=== PATIENT | female | born 1975 | race Hispanic/Latino ===

== ENCOUNTER 2017-07-23 01:16 | Emergency (ER) | payer SELFPAY ==
[~2017-07-23] VITALS: Ht 157.5 cm; Wt 58.5 kg
[2017-07-23] MEDS ORDERED: KETOROLAC TROMETHAMINE 60 MG/2 ML VIAL IM ONE (01:45)
--- NOTE | 2017-07-23 02:33 | Diagnostic Imaging Report ---
EXAM: CHEST 2 VIEWS, PA and lateral DATE: 07/23/2017 1:32 AM Time stamp on exam: 0142 hours INDICATION: Chest pain, shortness of breath, cough COMPARISON: None FINDINGS: LINES/TUBES: None LUNGS: No consolidations or edema. PLEURA: No effusions or pneumothorax. HEART AND MEDIASTINUM: Normal size and contour. BONES AND SOFT TISSUES: No acute findings. IMPRESSION: No acute thoracic abnormality. Signed by: Dr. Sonal Macdonald M.D. on 07/23/2017 2:30 AM
== END 2017-07-23 03:07 | disposition home or self-care (01) ==
LOC: ER 01:16
DX: R07.89 Other chest pain (principal)
CPT/HCPCS: 71020; 93005; 99283; J1885

== ENCOUNTER 2019-02-24 20:32 | Emergency (ER) | payer SELFPAY ==
[~2019-02-24] VITALS: Ht 157.5 cm; Wt 58.5 kg
--- OUTSIDE RECORDS SUMMARY | 2019-02-24 20:38 | XMS REPORT ---
[facility] Address Unknown Phone Unavailable Care Team Providers Care Accounts Manager Name Role Phone Timur MAYA Unavailable Unavailable Payers Payer Name Policy Type Policy Number Effective Date Expiration Date Problems This patient has no known problems. Allergies, Adverse Reactions, Alerts Allergy Name Allergy Type Status Severity Reaction(s) Onset Date Inactive Date Treating Clinician Comments No Known Allergies DA Active U 2018-12-22 00:00:00 Medications This patient has no known medications. Results Test Description Test Time Test Comments Text Results Atomic Results Result Comments BASIC METABOLIC PANEL 2019-01-08 06:58:00 SODIUM (test code=NA) 138 mmol/L 136-145 POTASSIUM (test code=K) 4.2 mmol/L 3.5-5.1 CHLORIDE (test code=CL) 106.0 mmol/L 98-107 CARBON DIOXIDE (test code=CO2) 28.0 mmol/L 21-32 ANION GAP (test code=GAP) 8.2 10-20 GLUCOSE (test code=GLU) 97 mg/dL 74-106 BLOOD UREA NITROGEN (test code=BUN) 9 mg/dL 7-18 GLOMERULAR FILTRATION RATE (test code=GFR) > 60 mL/min >=60 Estimated GFR by using Modified MDRD formula.Chronic kidney disease is defined as either kidney damageor GFR <60 mL/min/1.73 m2 for >3 months. CREATININE (test code=CREAT) 0.40 mg/dL 0.55-1.02 Note change in reference range due to change in reagent. BUN/CREATININE RATIO (test code=BUN/CREA) 22.5 10-20 CALCIUM (test code=CA) 9.1 mg/dL 8.5-10.1 BASIC METABOLIC [id number] 06:52:00* Test Item Value Reference Range Comments SODIUM (test code=NA) 138 mmol/L 136-145 POTASSIUM (test code=K) 4.2 mmol/L 3.5-5.1 CHLORIDE (test code=CL) 106.0 mmol/L 98-107 CARBON DIOXIDE (test code=CO2) mmol/L 21-32 ANION GAP (test code=GAP) 10-20 GLUCOSE (test code=GLU) mg/dL 74-106 BLOOD UREA NITROGEN (test code=BUN) mg/dL 7-18 GLOMERULAR FILTRATION RATE (test code=GFR) mL/min >=60 CREATININE (test code=CREAT) mg/dL 0.55-1.02 BUN/CREATININE RATIO (test code=BUN/CREA) 10-20 CALCIUM (test code=CA) mg/dL 8.5-10.1 CBC W/AUTO [id number] 06:32:00* Test Item Value Reference Range Comments WHITE BLOOD CELL (test code=WBC) 7.0 K/mm3 4.5-12.5 RED BLOOD CELL (test code=RBC) 3.62 mill/mm3 3.7-5.2 HEMOGLOBIN (test code=HGB) 11.5 gram/dL 11.5-15.5 HEMATOCRIT (test code=HCT) 36.6 % 36.0-46.0 MEAN CELL VOLUME (test code=MCV) 101.1 fL 80-98 MEAN CELL HGB (test code=MCH) 31.8 picogram 27.0-33.0 MEAN CELL HGB CONCETRATION (test code=MCHC) 31.4 gram/dL 33.0-36.0 RED CELL DISTRIBUTION WIDTH (test code=RDW) 14.3 % 11.6-16.2 RED CELL DISTRIBUTION WIDTH SD (test code=RDW-SD) 52.8 fL 37.0-51.0 PLATELET COUNT (test code=PLT) 509 K/mm3 150-450 MEAN PLATELET VOLUME (test code=MPV) 8.3 fL 6.7-11.0 NEUTROPHIL % (test code=NT%) 62.6 % 39.0-69.0 IMMATURE GRANULOCYTE % (test code=IG%) 0.9 % 0.0-5.0 LYMPHOCYTE % (test code=LY%) 19.9 % 25.0-55.0 MONOCYTE % (test code=MO%) 12.0 % 0.0-10.0 EOSINOPHIL % (test code=EO%) 3.6 % 0.0-5.0 BASOPHIL % (test code=BA%) 1.0 % 0.0-1.0 NUCLEATED RBC % (test code=NRBC%) 0.0 % 0-0 NEUTROPHIL # (test code=NT#) 4.40 K/mm3 1.8-7.7 IMMATURE GRANULOCYTE # (test code=IG#) 0.06 x10 3/uL 0-0.03 LYMPHOCYTE # (test code=LY#) 1.40 K/mm3 1.0-5.0 MONOCYTE # (test code=MO#) 0.84 K/mm3 0-0.8 EOSINOPHIL # (test code=EO#) 0.25 K/mm3 0.0-0.5 BASOPHIL # (test code=BA#) 0.07 K/mm3 0.0-0.2 NUCLEATED RBC # (test code=NRBC#) 0.00 K/mm3 0.0-0.1 CBC W/AUTO [id number] 06:28:00* Test Item Value Reference Range Comments WHITE BLOOD CELL (test code=WBC) K/mm3 4.5-12.5 RED BLOOD CELL (test code=RBC) mill/mm3 3.7-5.2 HEMOGLOBIN (test code=HGB) 11.5 gram/dL 11.5-15.5 HEMATOCRIT (test code=HCT) 36.6 % 36.0-46.0 MEAN CELL VOLUME (test code=MCV) fL 80-98 MEAN CELL HGB (test code=MCH) picogram 27.0-33.0 MEAN CELL HGB CONCETRATION (test code=MCHC) gram/dL 33.0-36.0 RED CELL DISTRIBUTION WIDTH (test code=RDW) % 11.6-16.2 RED CELL DISTRIBUTION WIDTH SD (test code=RDW-SD) fL 37.0-51.0 PLATELET COUNT (test code=PLT) K/mm3 150-450 MEAN PLATELET VOLUME (test code=MPV) fL 6.7-11.0 NEUTROPHIL % (test code=NT%) % 39.0-69.0 IMMATURE GRANULOCYTE % (test code=IG%) % 0.0-5.0 LYMPHOCYTE % (test code=LY%) % 25.0-55.0 MONOCYTE % (test code=MO%) % 0.0-10.0 EOSINOPHIL % (test code=EO%) % 0.0-5.0 BASOPHIL % (test code=BA%) % 0.0-1.0 NEUTROPHIL # (test code=NT#) K/mm3 1.8-7.7 LYMPHOCYTE # (test code=LY#) K/mm3 1.0-5.0 MONOCYTE # (test code=MO#) K/mm3 0-0.8 EOSINOPHIL # (test code=EO#) K/mm3 0.0-0.5 BASOPHIL # (test code=BA#) K/mm3 0.0-0.2 BASIC METABOLIC [id number] 07:43:00* Test Item Value Reference Range Comments SODIUM (test code=NA) 139 mmol/L 136-145 POTASSIUM (test code=K) 4.1 mmol/L 3.5-5.1 CHLORIDE (test code=CL) 106.0 mmol/L 98-107 CARBON DIOXIDE (test code=CO2) 25.0 mmol/L 21-32 ANION GAP (test code=GAP) 12.1 10-20 GLUCOSE (test code=GLU) 107 mg/dL 74-106 BLOOD UREA NITROGEN (test code=BUN) 8 mg/dL 7-18 GLOMERULAR FILTRATION RATE (test code=GFR) > 60 mL/min >=60 Estimated GFR by using Modified MDRD formula.Chronic kidney disease is defined as either kidney damageor GFR <60 mL/min/1.73 m2 for >3 months. CREATININE (test code=CREAT) 0.30 mg/dL 0.55-1.02 Note change in reference range due to change in reagent. BUN/CREATININE RATIO (test code=BUN/CREA) 26.7 10-20 CALCIUM (test code=CA) 8.4 mg/dL 8.5-10.1 BASIC METABOLIC [id number] 07:28:00* Test Item Value Reference Range Comments SODIUM (test code=NA) 139 mmol/L 136-145 POTASSIUM (test code=K) 4.1 mmol/L 3.5-5.1 CHLORIDE (test code=CL) 106.0 mmol/L 98-107 CARBON DIOXIDE (test code=CO2) mmol/L 21-32 ANION GAP (test code=GAP) 10-20 GLUCOSE (test code=GLU) mg/dL 74-106 BLOOD UREA NITROGEN (test code=BUN) mg/dL 7-18 GLOMERULAR FILTRATION RATE (test code=GFR) mL/min >=60 CREATININE (test code=CREAT) mg/dL 0.55-1.02 BUN/CREATININE RATIO (test code=BUN/CREA) 10-20 CALCIUM (test code=CA) mg/dL 8.5-10.1 CBC W/AUTO [id number] 07:09:00* Test Item Value Reference Range Comments WHITE BLOOD CELL (test code=WBC) 7.9 K/mm3 4.5-12.5 RED BLOOD CELL (test code=RBC) 3.33 mill/mm3 3.7-5.2 HEMOGLOBIN (test code=HGB) 10.5 gram/dL 11.5-15.5 HEMATOCRIT (test code=HCT) 32.1 % 36.0-46.0 MEAN CELL VOLUME (test code=MCV) 96.4 fL 80-98 MEAN CELL HGB (test code=MCH) 31.5 picogram 27.0-33.0 MEAN CELL HGB CONCETRATION (test code=MCHC) 32.7 gram/dL 33.0-36.0 RED CELL DISTRIBUTION WIDTH (test code=RDW) 14.3 % 11.6-16.2 RED CELL DISTRIBUTION WIDTH SD (test code=RDW-SD) 50.3 fL 37.0-51.0 PLATELET COUNT (test code=PLT) 523 K/mm3 150-450 MEAN PLATELET VOLUME (test code=MPV) 8.5 fL 6.7-11.0 NEUTROPHIL % (test code=NT%) 62.4 % 39.0-69.0 IMMATURE GRANULOCYTE % (test code=IG%) 1.5 % 0.0-5.0 LYMPHOCYTE % (test code=LY%) 17.9 % 25.0-55.0 MONOCYTE % (test code=MO%) 13.9 % 0.0-10.0 EOSINOPHIL % (test code=EO%) 3.4 % 0.0-5.0 BASOPHIL % (test code=BA%) 0.9 % 0.0-1.0 NUCLEATED RBC % (test code=NRBC%) 0.0 % 0-0 NEUTROPHIL # (test code=NT#) 4.94 K/mm3 1.8-7.7 IMMATURE GRANULOCYTE # (test code=IG#) 0.12 x10 3/uL 0-0.03 LYMPHOCYTE # (test code=LY#) 1.42 K/mm3 1.0-5.0 MONOCYTE # (test code=MO#) 1.10 K/mm3 0-0.8 EOSINOPHIL # (test code=EO#) 0.27 K/mm3 0.0-0.5 BASOPHIL # (test code=BA#) 0.07 K/mm3 0.0-0.2 NUCLEATED RBC # (test code=NRBC#) 0.00 K/mm3 0.0-0.1 - CT CHEST W/O [id number] 11:38:00 Name: BLADIMIR FAROOQ [facility] : 1975 Age/S: 43 / F [address] [facility] Unit #: [id number] Loc: [place] [address] Phys: Kaleigh Link NP Acct: [id number] Dis Date: Status: ADM IN PHONE #: [phone] Exam Date: 01/06/2019 1105 FAX #: [phone] Reason: s/p thoracotomy EXAMS: CPT CODE: [id number] CT CHEST W/O CONTRAST 80566 HISTORY: Post thoracotomy. COMPARISON: CT chest from December 22, 2018 and multiple chest x-ray from December 30 of January 06, 2019. CT chest without contrast: Automated exposure control. Right lung is clear. Small loculated left lateral pleural effusion is substantially decreased from previous chest CT. Small pockets of air is still noted within this effusion. 2 cm loculation noted along the inferior anterior margin of the major fissure and along the superior posterior margin of the major fissure as well. Platelike and subsegmental atelectasis. Mild scarring. No infiltrates. Moderate loss of lung volume and shift the mediastinum towards the left. No pneumothorax. No bronchiectasis, honeycombing or fibrosis. Normal caliber u nopacified aorta and pulmonary arteries. Thyroid glands are unremarkable. Superior mediastinum is unremarkable. Shotty axillary adenopathy on the le ft as well as in the pretracheal and precarinal spaces. Esophageal wall is not thickened. Cardiac silhouette is within normal limits without pericar dial effusion. Visualized upper abdomen is unremarkable. The subcu taneous tissues and the musculature are normal in appearance. No lytic or blastic lesions are noted within the bony skeleton. IMPRES VALENTIN: Small loculated left lateral basal effusion with small l ocules of air. Loculated 2 cm effusion in the anterior inferior margin o f the major fissure and the superior posterior margin of the major fissu re as well. Left basal subsegmental atelectasis with loss of lung volume and shift the mediastinum towards the left. No infiltrates. No congesti on. Mild scarring. Right lung is clear. No pathologic adenopathy. at 1138 Reported and signed by: Jh Oakes M.D. CC: Javi Tejeda MD; Kaleigh Link NP Technologist:Sara Orozco,RT(R),CT; Desiree Chaidez CTDI: DLP: Trnscb Date/Time: 01/06/2019 (1138) [email or web address] Orig Print D/T: S: 01/06/2019 (7721) PAGE 1 Signed Report - XR CHEST 2 [id number] 11:20:00 FAX: Javi Tejeda MD [phone] Thomas: St: ADM FAX: Jimmie Watters MD [phone] Name: BLADIMIR FAROOQ [facility] : 1975 Age/S: 43/F [address] Unit #: [id number] Loc: [address] [place] [address] Phys: Jimmie Monreal MD Acct: [id number] Dis Date: Status: ADM IN PHONE #: [phone] Exam Date: 01/06/2019 1055 FAX #: [phone] Reason: fever EXAMS: CPT CODE: [id number] XR CHEST 2 V 36113 HISTORY: Fever. COMPARISON: January 05, 2019. AP and lateral view of the chest: Small left effusion and subsegmental atelectasis with scarring. No infiltrates or congestion. Loss of lung volume on the left. Right lung is clear. IMPRESSION: Small left effusion with subsegmental atelectasis remains unchanged. at 1120 Reported and signed by: Jh Oakes M.D. CC: Javi Tejeda MD; Jimmie Monreal MD Technologist: RT RADHA(Jil) Trnscrd Date/Time/By: 01/06/2019 (1120) : By: [email or web address] Orig Print D/T: S: 01/06/2019 (2463) PAGE 1 Signed Report BASIC METABOLIC [id number] 09:11:00* Test Item Value Reference Range Comments SODIUM (test code=NA) 137 mmol/L 136-145 POTASSIUM (test code=K) 3.8 mmol/L 3.5-5.1 CHLORIDE (test code=CL) 104.0 mmol/L 98-107 CARBON DIOXIDE (test code=CO2) 27.0 mmol/L 21-32 ANION GAP (test code=GAP) 9.8 10-20 GLUCOSE (test code=GLU) 110 mg/dL 74-106 BLOOD UREA NITROGEN (test code=BUN) 7 mg/dL 7-18 GLOMERULAR FILTRATION RATE (test code=GFR) > 60 mL/min >=60 Estimated GFR by using Modified MDRD formula.Chronic kidney disease is defined as either kidney damageor GFR <60 mL/min/1.73 m2 for >3 months. CREATININE (test code=CREAT) 0.40 mg/dL 0.55-1.02 Note change in reference range due to change in reagent. BUN/CREATININE RATIO (test code=BUN/CREA) 17.5 10-20 CALCIUM (test code=CA) 8.4 mg/dL 8.5-10.1 BASIC METABOLIC [id number] 09:02:00* Test Item Value Reference Range Comments SODIUM (test code=NA) 137 mmol/L 136-145 POTASSIUM (test code=K) 3.8 mmol/L 3.5-5.1 CHLORIDE (test code=CL) 104.0 mmol/L 98-107 CARBON DIOXIDE (test code=CO2) mmol/L 21-32 ANION GAP (test code=GAP) 10-20 GLUCOSE (test code=GLU) mg/dL 74-106 BLOOD UREA NITROGEN (test code=BUN) mg/dL 7-18 GLOMERULAR FILTRATION RATE (test code=GFR) mL/min >=60 CREATININE (test code=CREAT) mg/dL 0.55-1.02 BUN/CREATININE RATIO (test code=BUN/CREA) 10-20 CALCIUM (test code=CA) mg/dL 8.5-10.1 CBC W/AUTO [id number] 08:42:00* Test Item Value Reference Range Comments WHITE BLOOD CELL (test code=WBC) 9.9 K/mm3 4.5-12.5 RED BLOOD CELL (test code=RBC) 3.39 mill/mm3 3.7-5.2 HEMOGLOBIN (test code=HGB) 10.7 gram/dL 11.5-15.5 HEMATOCRIT (test code=HCT) 33.8 % 36.0-46.0 MEAN CELL VOLUME (test code=MCV) 99.7 fL 80-98 MEAN CELL HGB (test code=MCH) 31.6 picogram 27.0-33.0 MEAN CELL HGB CONCETRATION (test code=MCHC) 31.7 gram/dL 33.0-36.0 RED CELL DISTRIBUTION WIDTH (test code=RDW) 14.4 % 11.6-16.2 RED CELL DISTRIBUTION WIDTH SD (test code=RDW-SD) 52.1 fL 37.0-51.0 PLATELET COUNT (test code=PLT) 532 K/mm3 150-450 MEAN PLATELET VOLUME (test code=MPV) 8.3 fL 6.7-11.0 NEUTROPHIL % (test code=NT%) 77.5 % 39.0-69.0 IMMATURE GRANULOCYTE % (test code=IG%) 1.9 % 0.0-5.0 LYMPHOCYTE % (test code=LY%) 8.3 % 25.0-55.0 MONOCYTE % (test code=MO%) 8.5 % 0.0-10.0 EOSINOPHIL % (test code=EO%) 3.2 % 0.0-5.0 BASOPHIL % (test code=BA%) 0.6 % 0.0-1.0 NUCLEATED RBC % (test code=NRBC%) 0.0 % 0-0 NEUTROPHIL # (test code=NT#) 7.69 K/mm3 1.8-7.7 IMMATURE GRANULOCYTE # (test code=IG#) 0.19 x10 3/uL 0-0.03 LYMPHOCYTE # (test code=LY#) 0.82 K/mm3 1.0-5.0 MONOCYTE # (test code=MO#) 0.84 K/mm3 0-0.8 EOSINOPHIL # (test code=EO#) 0.32 K/mm3 0.0-0.5 BASOPHIL # (test code=BA#) 0.06 K/mm3 0.0-0.2 NUCLEATED RBC # (test code=NRBC#) 0.00 K/mm3 0.0-0.1 MANUAL DIFF REQUIRED (test code=MDIFF) NO VANCOMYCIN [id number] 11:16:00* Test Item Value Reference Range Comments VANCOMYCIN TROUGH (test code=VANCT) 12.9 ug/mL 10-20 - XR CHEST 1 [id number] 08:57:00 FAX: Javi Tejeda MD [phone] Thomas: B St: ADM FAX: Kaleigh Dumont Name: BLADIMIR FAROOQ [facility] : 1975 Age/S: 43/F [address] [facility] Unit #: [id number] Loc: [address] [place] [address] Phys: Kaleigh Link NP Acct: [id number] Dis Date: Status: ADM IN PHONE #: [phone] Exam Date: 01/05/2019754 FAX #: [phone] Reason: s/p Thoracotomy EXAMS: CPT CODE: [id number] XR CHEST 1 V 25729 HISTORY: Post thoracotomy. COMPARISON: January 04, 2019. Increasing small left effusion with subsegmental atelectasis. Mild scarring and loss of lung volume. No infiltrates or congestion. No pneumothorax. Right lung is clear. IMPRESSION: Increasing small left effusion with subsegmental atelectasis and loss of lung volume without infiltrates or congestion. at 0857 Reported and signed by: Jh Oakes M.D. CC: Javi Tejeda MD; Kaleigh Link NP Technologist: Erica Carmen RT(R); MAURILIO GARZON RT(R) [facility] Date/Time/By: 01/05/2019 (0857) : By: Luz [email or web address] Orig Print D/T: S: 01/05/2019 (0900) CL JOHNSON 1 Signed Report - XR ABDOMEN AP 1 [id number] 15:58:00 FAX: Javi Tejeda MD [phone] Thomas: St: ADM FAX: Jeanette Rossi [phone] Name: BLADIMIR FAROOQ [facility] : 1975 Age/S: 43/F [address] Unit #: [id number] Loc: [place] [address] Phys: Jeanette Rossi MD Acct: [id number] Dis Date: Status: ADM IN PHONE #: [phone] Exam Date: 01/04/2019 1556 FAX #: [phone] Reason: constipation, pain EXAMS: CPT CODE: [id number] XR ABDOMEN AP 1 V 59780 REASON FOR EXAM: constipation, pain EXAM ORDER DATE: 01/04/2019 3:39 PM Attending MCarlos A: Jeanette Rossi MD PROCEDURE: - XR ABDOMEN AP 1 V COMPARISON: FINDINGS: One view of the abdomen obtained at 3:56 PM. The small bowel is unremarkable. No evidence of organomegaly or evidence of ascites. No evidence of free air. IMPRESSION: Moderate amount of stool in the colon suggestive of constipation. at 9771 Reported and signed by: Srinivas Cordero M.D. CC: Javi Tejeda MD; Jeanette Rossi MD Technologist: LIVIA LUCERO; Erica Carmen RT(R) Trnscrd Date/Time/By: 01/04/2019 (1096) : By: [email or web address] Orig Print D/T: S: 01/04/2019 (5113) PAGE 1 Signed Report - XR CHEST 1 [id number] 09:35:00 FAX: Javi Tejeda MD [phone] Thomas: St: ADM FAX: Kaleigh Dumont Name: BLADIMIR FAROOQ [facility] : 1975 Age/S: 43/F [address] Unit #: [id number] Loc: [address] [place] [address] Phys: Kaleigh Link NP Acct: [id number] Dis Date: Status: ADM IN PHONE #: [phone] Exam Date: 01/04/2019 09 FAX #: [phone] Reason: s/p Thoracotomy EXAMS: CPT CODE: [id number] XR CHEST 1 V 70860 HISTORY: Post thoracotomy. COMPARISON: Chest x-ray from previous day. Left basal subsegmental atelectasis and trace fluid. Scarring. Shift the mediastinum towards the left. No pneumothorax. Right lung is clear. Cardiac silhouette is mildly enlarged. IMPRESSION: Left basal subsegmental with trace fluid and mild scarring. No infiltrates or congestion. No pneumothorax. E lectronically Signed by Laurel Oakes on 01/04/2019 at 0935 Reported and signed by: Jh Oakes M.D. CC: Javi Tejeda MD; Kaleigh Link NP Technologist: Erica cooley RT(R) Trnscrd Date/Time/By: 01/04/2019 ( 0935) : By: [email or web address] Orig Print D/T: S: 01/04/2019 (0938) PAGE 1 Signed Report BASIC METABOLIC [id number] 07:46:00* Test Item Value Reference Range Comments SODIUM (test code=NA) 136 mmol/L 136-145 POTASSIUM (test code=K) 4.0 mmol/L 3.5-5.1 CHLORIDE (test code=CL) 102.0 mmol/L 98-107 CARBON DIOXIDE (test code=CO2) 29.0 mmol/L 21-32 ANION GAP (test code=GAP) 9.0 10-20 GLUCOSE (test code=GLU) 95 mg/dL 74-106 BLOOD UREA NITROGEN (test code=BUN) 4 mg/dL 7-18 GLOMERULAR FILTRATION RATE (test code=GFR) > 60 mL/min >=60 Estimated GFR by using Modified MDRD formula.Chronic kidney disease is defined as either kidney damageor GFR <60 mL/min/1.73 m2 for >3 months. CREATININE (test code=CREAT) 0.40 mg/dL 0.55-1.02 Note change in reference range due to change in reagent. BUN/CREATININE RATIO (test code=BUN/CREA) 10.0 10-20 CALCIUM (test code=CA) 8.8 mg/dL 8.5-10.1 [id number] 07:46:00* Test Item Value Reference Range Comments PHOSPHORUS (test code=PHOS) 3.7 mg/dL 2.5-4.9 [id number] 07:46:00* Test Item Value Reference Range Comments MAGNESIUM (test code=MAG) 2.0 mg/dL 1.8-2.4 CALCIUM [id number] 07:46:00* Test Item Value Reference Range Comments CALCIUM IONIZED (test code=LUCINA) 1.31 mmol/L 1.12-1.32 BASIC METABOLIC [id number] 07:43:00* Test Item Value Reference Range Comments SODIUM (test code=NA) 136 mmol/L 136-145 POTASSIUM (test code=K) 4.0 mmol/L 3.5-5.1 CHLORIDE (test code=CL) 102.0 mmol/L 98-107 CARBON DIOXIDE (test code=CO2) mmol/L 21-32 ANION GAP (test code=GAP) 10-20 GLUCOSE (test code=GLU) mg/dL 74-106 BLOOD UREA NITROGEN (test code=BUN) mg/dL 7-18 GLOMERULAR FILTRATION RATE (test code=GFR) mL/min >=60 CREATININE (test code=CREAT) mg/dL 0.55-1.02 BUN/CREATININE RATIO (test code=BUN/CREA) 10-20 CALCIUM (test code=CA) mg/dL 8.5-10.1 [id number] 07:43:00* Test Item Value Reference Range Comments PHOSPHORUS (test code=PHOS) mg/dL 2.5-4.9 [id number] 07:43:00* Test Item Value Reference Range Comments MAGNESIUM (test code=MAG) mg/dL 1.8-2.4 CALCIUM [id number] 07:43:00* Test Item Value Reference Range Comments CALCIUM IONIZED (test code=LUCINA) 1.31 mmol/L 1.12-1.32 BASIC METABOLIC [id number] 07:42:00* Test Item Value Reference Range Comments SODIUM (test code=NA) 136 mmol/L 136-145 POTASSIUM (test code=K) 4.0 mmol/L 3.5-5.1 CHLORIDE (test code=CL) 102.0 mmol/L 98-107 CARBON DIOXIDE (test code=CO2) mmol/L 21-32 ANION GAP (test code=GAP) 10-20 GLUCOSE (test code=GLU) mg/dL 74-106 BLOOD UREA NITROGEN (test code=BUN) mg/dL 7-18 GLOMERULAR FILTRATION RATE (test code=GFR) mL/min >=60 CREATININE (test code=CREAT) mg/dL 0.55-1.02 BUN/CREATININE RATIO (test code=BUN/CREA) 10-20 CALCIUM (test code=CA) mg/dL 8.5-10.1 [id number] 07:42:00* Test Item Value Reference Range Comments PHOSPHORUS (test code=PHOS) mg/dL 2.5-4.9 [id number] 07:42:00* Test Item Value Reference Range Comments MAGNESIUM (test code=MAG) mg/dL 1.8-2.4 CALCIUM [id number] 07:42:00* Test Item Value Reference Range Comments CALCIUM IONIZED (test code=LUCINA) mmol/L 1.12-1.32 CBC W/AUTO [id number] 07:38:00* Test Item Value Reference Range Comments WHITE BLOOD CELL (test code=WBC) 10.3 K/mm3 4.5-12.5 RED BLOOD CELL (test code=RBC) 3.47 mill/mm3 3.7-5.2 HEMOGLOBIN (test code=HGB) 10.9 gram/dL 11.5-15.5 HEMATOCRIT (test code=HCT) 34.6 % 36.0-46.0 MEAN CELL VOLUME (test code=MCV) 99.7 fL 80-98 MEAN CELL HGB (test code=MCH) 31.4 picogram 27.0-33.0 MEAN CELL HGB CONCETRATION (test code=MCHC) 31.5 gram/dL 33.0-36.0 RED CELL DISTRIBUTION WIDTH (test code=RDW) 14.3 % 11.6-16.2 RED CELL DISTRIBUTION WIDTH SD (test code=RDW-SD) 51.2 fL 37.0-51.0 PLATELET COUNT (test code=PLT) 616 K/mm3 150-450 RESULT VERIFIED BY REPEAT ANALYSIS MEAN PLATELET VOLUME (test code=MPV) 8.2 fL 6.7-11.0 NEUTROPHIL % (test code=NT%) 64.7 % 39.0-69.0 IMMATURE GRANULOCYTE % (test code=IG%) 4.4 % 0.0-5.0 LYMPHOCYTE % (test code=LY%) 17.1 % 25.0-55.0 MONOCYTE % (test code=MO%) 10.1 % 0.0-10.0 EOSINOPHIL % (test code=EO%) 2.8 % 0.0-5.0 BASOPHIL % (test code=BA%) 0.9 % 0.0-1.0 NUCLEATED RBC % (test code=NRBC%) 0.0 % 0-0 NEUTROPHIL # (test code=NT#) 6.64 K/mm3 1.8-7.7 IMMATURE GRANULOCYTE # (test code=IG#) 0.45 x10 3/uL 0-0.03 LYMPHOCYTE # (test code=LY#) 1.76 K/mm3 1.0-5.0 MONOCYTE # (test code=MO#) 1.04 K/mm3 0-0.8 EOSINOPHIL # (test code=EO#) 0.29 K/mm3 0.0-0.5 BASOPHIL # (test code=BA#) 0.09 K/mm3 0.0-0.2 NUCLEATED RBC # (test code=NRBC#) 0.00 K/mm3 0.0-0.1 AB HIV 1 21:38:00* Test Item Value Reference Range Comments AB HIV 1 2 (test code=XAP37SJ) Nonreactive NonReactive It is recognized that currently available assays for thedetection of antibodies to HIV-1 and/or HIV-2 may notdetect all infected individuals. A negative test result doesnot exclude the possibility of exposure to or infection withHIV. HIV antibodies may be undetectable in some stages ofthe infection and in some clinical conditions. - XR CHEST 1 [id number] 16:02:00 FAX: Jvai Tejeda MD [phone] [facility]: [facility]: [facility] FAX: Kaleigh Dumont Name: BLADIMIR FAROOQ [facility] : 1975 Age/S: 43/F Sonia Silva Unit #: [id number] Loc: V.2079 [place] [id number] Phys: Kaleigh Link NP Acct: [id number] Dis Date: Status: ADM IN PHONE #: [phone] Exam Date: 01/03/2019 6472 FAX #: [phone] Reason: s/p removal pleural chest tubes EXAMS: CPT CODE: [id number] XR CHEST 1 V 19587 REASON FOR EXAM: s/p removal pleural chest tubes EXAM ORDER DATE: 01/03/2019 3:08 PM Ordering MCarlos A: Kaleigh Link NP PROCEDURE: - XR CHEST 1 V COMPARISON: 01/03/2019 at 10:19 AM FINDINGS: Portable AP frontal view of the chest obtained at 3:48 PM shows diffuse airspace opacity at the left lung. The heart size is within normal limits. Pulmonary vasculatures are unremarkable. IMPRESSION: Status post removal of left surgical chest tubes. Persistent diffuse opacity of the left lung suggestive of a combination of atelectasis and residual left pleural effusion at 1602 Reported and signed by: Srinivas Cordero M.D. CC: Javi Tejeda MD; Kaleigh Link NP Technologist: Han MILAN(R) Trnivelisserd Date/Time/By: 01/03/2019 (8847) : By: AdelsoL Orig Print D/T: S: 01/03/2019 (3119) PAGE 1 Signed Report [id number] 13:15:00 RUN DATE: 01/03/19 [place] - Lab PAGE 1 RUN TIME: 1316 Specimen Inqui ry RUN USER: INTERFACE PATIENT: BLADIMIR FAROOQ ACCT #: [id number] LOC: YANELI U #: [id number] AGE/SX: 43/F ROOM: 2079 RE12/22/18REG DR: Javi Tejeda MD : 75 BED: A DIS: STATUS: ADM IN TLOC: SPEC #: [id number] RECD: 12/30/18 STATUS: REJI REJamie #: [id number] LUCINAD: 12/29/18- [facility] DR: Jese Granados MD ENTERED: 12/30/18 SP TYPE: BONE OTHR DR: Jesse Catalan MD, Vinh T MDORDERED: RANJITH COPIES TO: Jesse Catalan MD [address] [place] [address] Jese Granados MD [address] [facility] ite [address] [place] [address] Srinivas Cordero MD [address] [place] [address] PROCEDURES: RANJITH (01/03/19-1104) T ISSUES: RIB, NOS CLINICAL HISTORY COLLECTION DATE: 12/29/18 LEFT PLEURAL EFFUSION FINAL DIAGNOSIS Rib, site not specified, removal: NO DIAGNOSTIC ALTERATION / D 02832, 89938 CONTINUED ON NEXT PAGE RUN DATE : 01/03/19 [facility] PAGE 2 RUN TIME: 1316 Specimen Inquiry RUN USER: INTERFACE SPEC #: [id number] PATIENT: BLADIMIR FAROOQ #V [id number] (Continued) MACROSCOPIC The specimen is r eceived in formalin, labeled with the patient's name, and identified as "rib". The specimen consists of a portion of bone with scant amount of attached soft tissue measuring 2.5 X 1.1 X 1.1 cm. Surgical Asst section is submitted in a single cassette after decalcification. GROSS PERFORMED AT [facility] [address] [place], [place] [address] [phone])[phone] MICROSCOPIC Sections show unremarkable bone, soft tissue, and skeletal muscle fibers. Three cell line m arrow elements are present. No malignancy is identified. All of the stains, including any controls performed, stain appropriately. MICROSCO PIC PERFORMED AT [facility] [address] [place] [address] [phone] PERFORMING SITE Diagnosis performed at: [facility] [address] [place], [place] [id number] Signed SIGNATURE ON FILE Leodan Daniel MD 01/03/19 1315 END OF REPORT VANCOMYCIN [id number] 12:18:00* Test Item Value Reference Range Comments VANCOMYCIN TROUGH (test code=VANCT) 4.5 ug/mL 10-20 LIDYA CHAMBERLAIN, DO NOT DISTURB PATIENT. COME BACK LATER. V.LAB.RP106 0759BASI METABOLIC [id number] 12:13:00* Test Item Value Reference Range Comments SODIUM (test code=NA) 136 mmol/L 136-145 POTASSIUM (test code=K) 4.2 mmol/L 3.5-5.1 CHLORIDE (test code=CL) 102.0 mmol/L 98-107 CARBON DIOXIDE (test code=CO2) 29.0 mmol/L 21-32 ANION GAP (test code=GAP) 9.2 10-20 GLUCOSE (test code=GLU) 86 mg/dL 74-106 BLOOD UREA NITROGEN (test code=BUN) 4 mg/dL 7-18 GLOMERULAR FILTRATION RATE (test code=GFR) > 60 mL/min >=60 Estimated GFR by using Modified MDRD formula.Chronic kidney disease is defined as either kidney damageor GFR <60 mL/min/1.73 m2 for >3 months. CREATININE (test code=CREAT) 0.50 mg/dL 0.55-1.02 Note change in reference range due to change in reagent. BUN/CREATININE RATIO (test code=BUN/CREA) 8.0 10-20 CALCIUM (test code=CA) 9.3 mg/dL 8.5-10.1 RN CINTIA, DO NOT DISTURB. COME BACK. V.LAB.RP1 01/03/[id number] 12:13:00* Test Item Value Reference Range Comments PHOSPHORUS (test code=PHOS) 3.7 mg/dL 2.5-4.9 RN CINTIA, DO NOT DISTURB. COME BACK. V.LAB.RP1 01/03/[id number] 12:13:00* Test Item Value Reference Range Comments MAGNESIUM (test code=MAG) 2.2 mg/dL 1.8-2.4 RN CINTIA, DO NOT DISTURB. COME BACK. V.LAB.RP1 01/03/[id number] IONIZED 2019-01-03 12:13:00* Test Item Value Reference Range Comments CALCIUM IONIZED (test code=LUCINA) 1.29 mmol/L 1.12-1.32 RN CINTIA, DO NOT DISTURB. COME BACK. V.LAB.RP1 01/03/616851GCCOP METABOLIC PANEL 2019-01-03 12:08:00* Test Item Value Reference Range Comments SODIUM (test code=NA) 136 mmol/L 136-145 POTASSIUM (test code=K) 4.2 mmol/L 3.5-5.1 CHLORIDE (test code=CL) 102.0 mmol/L 98-107 CARBON DIOXIDE (test code=CO2) mmol/L 21-32 ANION GAP (test code=GAP) 10-20 GLUCOSE (test code=GLU) mg/dL 74-106 BLOOD UREA NITROGEN (test code=BUN) mg/dL 7-18 GLOMERULAR FILTRATION RATE (test code=GFR) mL/min >=60 CREATININE (test code=CREAT) mg/dL 0.55-1.02 BUN/CREATININE RATIO (test code=BUN/CREA) 10-20 CALCIUM (test code=CA) mg/dL 8.5-10.1 LIDYA CHAMBERLAIN, DO NOT DISTURB. COME BACK. V.LAB.RP1 [id number] 12:08:00* Test Item Value Reference Range Comments PHOSPHORUS (test code=PHOS) mg/dL 2.5-4.9 LIDYA CHAMBERLAIN, DO NOT DISTURB. COME BACK. V.LAB.RP1 [id number] 12:08:00* Test Item Value Reference Range Comments MAGNESIUM (test code=MAG) mg/dL 1.8-2.4 LIDYA CHAMBERLAIN, DO NOT DISTURB. COME BACK. V.LAB.1 [id number] IONIZED 2019-01-03 12:08:00* Test Item Value Reference Range Comments CALCIUM IONIZED (test code=LUCINA) 1.29 mmol/L 1.12-1.32 LIDYA CHAMBERLAIN, DO NOT DISTURB. COME BACK. V.LAB.1 [id number] METABOLIC PANEL 2019-01-03 12:02:00* Test Item Value Reference Range Comments SODIUM (test code=NA) mmol/L 136-145 POTASSIUM (test code=K) mmol/L 3.5-5.1 CHLORIDE (test code=CL) mmol/L 98-107 CARBON DIOXIDE (test code=CO2) mmol/L 21-32 ANION GAP (test code=GAP) 10-20 GLUCOSE (test code=GLU) mg/dL 74-106 BLOOD UREA NITROGEN (test code=BUN) mg/dL 7-18 GLOMERULAR FILTRATION RATE (test code=GFR) mL/min >=60 CREATININE (test code=CREAT) mg/dL 0.55-1.02 BUN/CREATININE RATIO (test code=BUN/CREA) 10-20 CALCIUM (test code=CA) mg/dL 8.5-10.1 LIDYA CHAMBERLAIN, DO NOT DISTURB. COME BACK. V.LAB.1 [id number] 12:02:00* Test Item Value Reference Range Comments PHOSPHORUS (test code=PHOS) mg/dL 2.5-4.9 LIDYA CHAMBERLAIN, DO NOT DISTURB. COME BACK. V.LAB.RP1 01/03/[id number] 12:02:00* Test Item Value Reference Range Comments MAGNESIUM (test code=MAG) mg/dL 1.8-2.4 LIDYA CHAMBERLAIN, DO NOT DISTURB. COME BACK. V.LAB.RP1 01/03/[id number] IONIZED 2019-01-03 12:02:00* Test Item Value Reference Range Comments CALCIUM IONIZED (test code=LUCINA) 1.29 mmol/L 1.12-1.32 LIDYA CHAMBERLAIN, DO NOT DISTURB. COME BACK. V.LAB.RP1 01/03/014186KAH W/AUTO DIFF 2019-01-03 11:36:00* Test Item Value Reference Range Comments WHITE BLOOD CELL (test code=WBC) 12.4 K/mm3 4.5-12.5 RED BLOOD CELL (test code=RBC) 3.67 mill/mm3 3.7-5.2 HEMOGLOBIN (test code=HGB) 11.5 gram/dL 11.5-15.5 HEMATOCRIT (test code=HCT) 35.6 % 36.0-46.0 MEAN CELL VOLUME (test code=MCV) 97.0 fL 80-98 MEAN CELL HGB (test code=MCH) 31.3 picogram 27.0-33.0 MEAN CELL HGB CONCETRATION (test code=MCHC) 32.3 gram/dL 33.0-36.0 RED CELL DISTRIBUTION WIDTH (test code=RDW) 14.3 % 11.6-16.2 RED CELL DISTRIBUTION WIDTH SD (test code=RDW-SD) 50.3 fL 37.0-51.0 PLATELET COUNT (test code=PLT) 704 K/mm3 150-450 RESULT VERIFIED BY REPEAT ANALYSIS MEAN PLATELET VOLUME (test code=MPV) 8.3 fL 6.7-11.0 NEUTROPHIL % (test code=NT%) 69.8 % 39.0-69.0 IMMATURE GRANULOCYTE % (test code=IG%) 4.6 % 0.0-5.0 LYMPHOCYTE % (test code=LY%) 13.7 % 25.0-55.0 MONOCYTE % (test code=MO%) 8.6 % 0.0-10.0 EOSINOPHIL % (test code=EO%) 2.7 % 0.0-5.0 BASOPHIL % (test code=BA%) 0.6 % 0.0-1.0 NUCLEATED RBC % (test code=NRBC%) 0.0 % 0-0 NEUTROPHIL # (test code=NT#) 8.67 K/mm3 1.8-7.7 IMMATURE GRANULOCYTE # (test code=IG#) 0.57 x10 3/uL 0-0.03 LYMPHOCYTE # (test code=LY#) 1.70 K/mm3 1.0-5.0 MONOCYTE # (test code=MO#) 1.07 K/mm3 0-0.8 EOSINOPHIL # (test code=EO#) 0.33 K/mm3 0.0-0.5 BASOPHIL # (test code=BA#) 0.08 K/mm3 0.0-0.2 NUCLEATED RBC # (test code=NRBC#) 0.00 K/mm3 0.0-0.1 MANUAL DIFF REQUIRED (test code=MDIFF) NO RN CINTIA. DO NOT DISTURB PT. 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 COMPARISON: Previous day. Left chest tubes are unchanged. Subsegmental left basal atelectasis. No infiltrates or congestion or effusion. No pneumothorax. Right lung is clear. Cardiac silhouette is normal. IMPRESSION: Left basal subsegmental atelectasis with shift of mediastinum towards the left is unchanged. Left chest tubes are in good position without pneumothorax. at 1051 Reported and signed by: Jh Oakes M.D. CC: Javi Tejeda MD; Kaleigh Link NP Technologist: Han MILAN(R) Trnscrd Date/Time/By: 01/03/2019 (7155) : By: [email or web address] Orig Print D/T: S: 01/03/2019 (5199) PAGE 1 Signed Report - XR CHEST 1 [id number] 19:13:00 FAX: Javi Tejeda MD [phone] Thomas: St: ADM FAX: Y Kaleigh Link Name: BLADIMIR FAROOQ [facility] : 1975 Age/S: 43/F [address] [facility] Unit #: [id number] Loc: V.0 [place] [address] Phys: Kaleigh Link NP Acct: [id number] Dis Date: Status: ADM IN PHONE #: [phone] Exam Date: 01/02/20191814 FAX #: [phone] Reason: S/P THORACOTOMY EXAMS: CPT CODE: [id number] XR CHEST 1 V 22093 REASON FOR EXAM: S/P THORACOTOMY Exam Order Date: 01/02/2019 12:00 AM Ordering Laurel: Kaleigh Link NP PROCEDURE: - XR CHEST 1 V COMPARISON: AP chest x-ray the previous morning at 7:22 AM FINDINGS: The right lung is clear. Left-sided apical and basal chest tubes are unchanged in position. There is an opacity overlying the mid to lower left lung which likely represents a combination of pleural effusion and atelectasis. Superimposed consolidation cannot be excluded. The left lung is better aerated compared to the previous exam however and the left retrocardiac sp lambert is able to be visualized on the present study. The cardiac med iastinal silhouette is normal in size. Bones and upper abdomen are within normal limits. IMPRESSION: Opacity projecting over the m id to lower left lung has improved and the left retrocardiac space is no w able to be visualized. The right lung is clear. Electronic ally Signed by Ki Szymanski MD on 01/02/2019 at 1913 Repo rted and signed by: Ki Szymanski MD CC: Javi Tejeda MD; Kaleigh Link NP Technologist: Donna Hughes) Trnscrd Date/Time/By: 01/02/2019 (1912) : By: [email or web address] Orig Print D/T: S: 01/02/2019 (1915) PAGE 1 Signed Report PLEURAL [id number] 12:30:00 RUN DATE: 01/02/19 [facility] PAGE 1 RUN TIME: 1230 Specimen Inqui ry RUN USER: INTERFACE PATIENT: BLADIMIR FAROOQ ACCT #: [id number] LOC: YANELI U #: [id number] AGE/SX: 43/F ROOM: 2079 RE12/22/18REG DR: Javi Tejeda MD : 75 BED: A DIS: STATUS: ADM IN TLOC: SPEC #: [id number] RECD: 12/30/18 STATUS: SOULyric RE #: [id number] LUCINDA: 12/30/18- [facility] DR: Jese Granados MD ENTERED: 12/30/18 SP TYPE: PLEURAL FL OTHR DR: Jesse Catalan MD, Vinh T MDORDERED: GROSS COPIES TO: Jesse Catalan MD [address] [place] [address] Jese Granados MD [address] [facility] ite [address] [place] [address] Srinivas Cordero MD [address] [place] [address] PROCEDURES: GROSS (01/02/19-1112) T ISSUES: PLEURAL FLUID, NOS - 50ML THICK RED FLUID CLINICAL HIS TORY COLLECTION DATE: 12/29/18 LEFT PLEURAL EFFUSION FINAL DIAGN OSIS Pleural diffusion, left thoracentesis: NEGATIVE FOR MALIGNANCY (p lease see microscopic description) FA/ D 22869, [address] CONTINUED ON NEXT PAGE RUN RAUL E: 01/02/19 [facility] PAGE 2 RUN TIME: 1230 Specimen Inquiry RUN USER: INTERFACE SPEC #: [id number] PATIENT: BLADIMIR FAROOQ # [id number] (Continued) MACROSCOPIC The specimen is labeled "left pleural effusion" and consists of 50 mL of thick bloody fluid to be processed for cytologic evaluation. A cell block will be prepared. GROSS PERFORMED AT [facility] [address] [place] [address] [phone] ALTON ROSCOPIC Cytologic evaluation is limited due to absence of mesothelial cells. The smear, cytospin and cell block shows blood, inflammatory cells and necro tic debris. No malignant cells are seen. All of the stains, inclu ding any controls performed, stain appropriately. MICROSCOPIC PERFORMED AT [facility] [address] [place] [address] [phone] PERFORMING SITE Diagnosis perf ormed at: [facility] [address] [place] [address] Signed SIGNATURE ON FILE Leodan Daniel MD 01/02/19 1230 END OF REPORT CBC W/MANUAL [id number] 06:00:00* Test Item Value Reference Range Comments WHITE BLOOD CELL (test code=WBC) 11.2 K/mm3 4.5-12.5 RED BLOOD CELL (test code=RBC) 3.34 mill/mm3 3.7-5.2 HEMOGLOBIN (test code=HGB) 10.4 gram/dL 11.5-15.5 HEMATOCRIT (test code=HCT) 32.5 % 36.0-46.0 MEAN CELL VOLUME (test code=MCV) 97.3 fL 80-98 MEAN CELL HGB (test code=MCH) 31.1 picogram 27.0-33.0 MEAN CELL HGB CONCETRATION (test code=MCHC) 32.0 gram/dL 33.0-36.0 RED CELL DISTRIBUTION WIDTH (test code=RDW) 14.1 % 11.6-16.2 RED CELL DISTRIBUTION WIDTH SD (test code=RDW-SD) 49.7 fL 37.0-51.0 PLATELET COUNT (test code=PLT) 507 K/mm3 150-450 MEAN PLATELET VOLUME (test code=MPV) 8.1 fL 6.7-11.0 IMMATURE GRANULOCYTE % (test code=IG%) 7.4 % 0.0-5.0 "The appearance of immature granulocytes (myelocytes,pro-myelocytes, meta-myelocytes) in the peripheral blood ofnon- individuals can indicate a response toinfection, inflammation, or other stimulus to the bonemarrow" NUCLEATED RBC % (test code=NRBC%) 0.0 % 0-0 NEUTROPHIL # (test code=NT#) 7.19 K/mm3 1.8-7.7 IMMATURE GRANULOCYTE # (test code=IG#) 0.83 x10 3/uL 0-0.03 LYMPHOCYTE # (test code=LY#) 1.70 K/mm3 1.0-5.0 MONOCYTE # (test code=MO#) 1.03 K/mm3 0-0.8 EOSINOPHIL # (test code=EO#) 0.32 K/mm3 0.0-0.5 BASOPHIL # (test code=BA#) 0.09 K/mm3 0.0-0.2 NUCLEATED RBC # (test code=NRBC#) 0.00 K/mm3 0.0-0.1 MANUAL DIFF REQUIRED (test code=MDIFF) YES STAIN ACCEPTABILITY (test code=STN ACCEPTABLE) STAIN ACCEPTABLE TOTAL CELLS COUNTED (test code=TCC) 115 #CELLS SEGMENTED NEUTROPHILS (test code=SEG) 75.7 % 39-69 BAND NEUTROPHIL (test code=BAND) 0 % 0-10 LYMPHOCYTE (test code=LYMPH) 11.3 % 25-55 REACTIVE LYMPH (test code=RELYMPH) 0 % MONOCYTE (test code=MON) 6.1 % 0-10 EOSINOPHIL (test code=EOS) 2.6 % 0.0-5.0 BASOPHIL (test code=BASO) 0 % 0-1.0 METAMYELOCYTE (test code=META) 1.7 % 0-0 MYELOCYTE (test code=MYELO) 2.6 % 0.0-0.0 PROMYELOCYTE (test code=PROM) 0 % 0-0 POLYCHROMASIA (test code=POLC) 1+ PLATELET ESTIMATE (test code=PLTEST) INCREASED PLATELET MORPHOLOGY (test code=PLTMORPH) NORMAL IMMATURE FORMS (test code=IMMAT) 0 % 0-0 BASIC METABOLIC [id number] 05:34:00* Test Item Value Reference Range Comments SODIUM (test code=NA) 139 mmol/L 136-145 POTASSIUM (test code=K) 3.8 mmol/L 3.5-5.1 CHLORIDE (test code=CL) 106.0 mmol/L 98-107 CARBON DIOXIDE (test code=CO2) 28.0 mmol/L 21-32 ANION GAP (test code=GAP) 8.8 10-20 GLUCOSE (test code=GLU) 109 mg/dL 74-106 BLOOD UREA NITROGEN (test code=BUN) 4 mg/dL 7-18 GLOMERULAR FILTRATION RATE (test code=GFR) > 60 mL/min >=60 Estimated GFR by using Modified MDRD formula.Chronic kidney disease is defined as either kidney damageor GFR <60 mL/min/1.73 m2 for >3 months. CREATININE (test code=CREAT) 0.30 mg/dL 0.55-1.02 Note change in reference range due to change in reagent. BUN/CREATININE RATIO (test code=BUN/CREA) 13.3 10-20 CALCIUM (test code=CA) 8.4 mg/dL 8.5-10.1 [id number] 05:34:00* Test Item Value Reference Range Comments PHOSPHORUS (test code=PHOS) 3.3 mg/dL 2.5-4.9 [id number] 05:34:00* Test Item Value Reference Range Comments MAGNESIUM (test code=MAG) 2.1 mg/dL 1.8-2.4 CALCIUM [id number] 05:34:00* Test Item Value Reference Range Comments CALCIUM IONIZED (test code=LUCINA) 1.26 mmol/L 1.12-1.32 BASIC METABOLIC [id number] 05:30:00* Test Item Value Reference Range Comments SODIUM (test code=NA) 139 mmol/L 136-145 POTASSIUM (test code=K) 3.8 mmol/L 3.5-5.1 CHLORIDE (test code=CL) 106.0 mmol/L 98-107 CARBON DIOXIDE (test code=CO2) 28.0 mmol/L 21-32 ANION GAP (test code=GAP) 8.8 10-20 GLUCOSE (test code=GLU) 109 mg/dL 74-106 BLOOD UREA NITROGEN (test code=BUN) 4 mg/dL 7-18 GLOMERULAR FILTRATION RATE (test code=GFR) > 60 mL/min >=60 Estimated GFR by using Modified MDRD formula.Chronic kidney disease is defined as either kidney damageor GFR <60 mL/min/1.73 m2 for >3 months. CREATININE (test code=CREAT) 0.30 mg/dL 0.55-1.02 Note change in reference range due to change in reagent. BUN/CREATININE RATIO (test code=BUN/CREA) 13.3 10-20 CALCIUM (test code=CA) 8.4 mg/dL 8.5-10.1 [id number] 05:30:00* Test Item Value Reference Range Comments PHOSPHORUS (test code=PHOS) 3.3 mg/dL 2.5-4.9 [id number] 05:30:00* Test Item Value Reference Range Comments MAGNESIUM (test code=MAG) 2.1 mg/dL 1.8-2.4 CALCIUM [id number] 05:30:00* Test Item Value Reference Range Comments CALCIUM IONIZED (test code=LUCINA) mmol/L 1.12-1.32 BASIC METABOLIC [id number] 05:21:00* Test Item Value Reference Range Comments SODIUM (test code=NA) 139 mmol/L 136-145 POTASSIUM (test code=K) 3.8 mmol/L 3.5-5.1 CHLORIDE (test code=CL) 106.0 mmol/L 98-107 CARBON DIOXIDE (test code=CO2) mmol/L 21-32 ANION GAP (test code=GAP) 10-20 GLUCOSE (test code=GLU) mg/dL 74-106 BLOOD UREA NITROGEN (test code=BUN) mg/dL 7-18 GLOMERULAR FILTRATION RATE (test code=GFR) mL/min >=60 CREATININE (test code=CREAT) mg/dL 0.55-1.02 BUN/CREATININE RATIO (test code=BUN/CREA) 10-20 CALCIUM (test code=CA) mg/dL 8.5-10.1 [id number] 05:21:00* Test Item Value Reference Range Comments PHOSPHORUS (test code=PHOS) mg/dL 2.5-4.9 [id number] 05:21:00* Test Item Value Reference Range Comments MAGNESIUM (test code=MAG) mg/dL 1.8-2.4 CALCIUM [id number] 05:21:00* Test Item Value Reference Range Comments CALCIUM IONIZED (test code=LUCINA) mmol/L 1.12-1.32 CBC W/MANUAL [id number] 05:04:00* Test Item Value Reference Range Comments WHITE BLOOD CELL (test code=WBC) 11.2 K/mm3 4.5-12.5 RED BLOOD CELL (test code=RBC) 3.34 mill/mm3 3.7-5.2 HEMOGLOBIN (test code=HGB) 10.4 gram/dL 11.5-15.5 HEMATOCRIT (test code=HCT) 32.5 % 36.0-46.0 MEAN CELL VOLUME (test code=MCV) 97.3 fL 80-98 MEAN CELL HGB (test code=MCH) 31.1 picogram 27.0-33.0 MEAN CELL HGB CONCETRATION (test code=MCHC) 32.0 gram/dL 33.0-36.0 RED CELL DISTRIBUTION WIDTH (test code=RDW) 14.1 % 11.6-16.2 RED CELL DISTRIBUTION WIDTH SD (test code=RDW-SD) 49.7 fL 37.0-51.0 PLATELET COUNT (test code=PLT) 507 K/mm3 150-450 MEAN PLATELET VOLUME (test code=MPV) 8.1 fL 6.7-11.0 IMMATURE GRANULOCYTE % (test code=IG%) 7.4 % 0.0-5.0 "The appearance of immature granulocytes (myelocytes,pro-myelocytes, meta-myelocytes) in the peripheral blood ofnon- individuals can indicate a response toinfection, inflammation, or other stimulus to the bonemarrow" NUCLEATED RBC % (test code=NRBC%) 0.0 % 0-0 NEUTROPHIL # (test code=NT#) 7.19 K/mm3 1.8-7.7 IMMATURE GRANULOCYTE # (test code=IG#) 0.83 x10 3/uL 0-0.03 LYMPHOCYTE # (test code=LY#) 1.70 K/mm3 1.0-5.0 MONOCYTE # (test code=MO#) 1.03 K/mm3 0-0.8 EOSINOPHIL # (test code=EO#) 0.32 K/mm3 0.0-0.5 BASOPHIL # (test code=BA#) 0.09 K/mm3 0.0-0.2 NUCLEATED RBC # (test code=NRBC#) 0.00 K/mm3 0.0-0.1 MANUAL DIFF REQUIRED (test code=MDIFF) YES STAIN ACCEPTABILITY (test code=STN ACCEPTABLE) TOTAL CELLS COUNTED (test code=TCC) #CELLS SEGMENTED NEUTROPHILS (test code=SEG) % 39-69 LYMPHOCYTE (test code=LYMPH) % 25-55 MONOCYTE (test code=MON) % 0-10 EOSINOPHIL (test code=EOS) % 0.0-5.0 CABOT RINGS (test code=CAB) MORPHOLOGY COMMENT (test code=MOC) PLATELET ESTIMATE (test code=PLTEST) PLATELET MORPHOLOGY (test code=PLTMORPH) CBC W/MANUAL [id number] 05:04:00* Test Item Value Reference Range Comments WHITE BLOOD CELL (test code=WBC) 11.2 K/mm3 4.5-12.5 RED BLOOD CELL (test code=RBC) 3.34 mill/mm3 3.7-5.2 HEMOGLOBIN (test code=HGB) 10.4 gram/dL 11.5-15.5 HEMATOCRIT (test code=HCT) 32.5 % 36.0-46.0 MEAN CELL VOLUME (test code=MCV) 97.3 fL 80-98 MEAN CELL HGB (test code=MCH) 31.1 picogram 27.0-33.0 MEAN CELL HGB CONCETRATION (test code=MCHC) 32.0 gram/dL 33.0-36.0 RED CELL DISTRIBUTION WIDTH (test code=RDW) 14.1 % 11.6-16.2 RED CELL DISTRIBUTION WIDTH SD (test code=RDW-SD) 49.7 fL 37.0-51.0 PLATELET COUNT (test code=PLT) 507 K/mm3 150-450 MEAN PLATELET VOLUME (test code=MPV) 8.1 fL 6.7-11.0 IMMATURE GRANULOCYTE % (test code=IG%) 7.4 % 0.0-5.0 "The appearance of immature granulocytes (myelocytes,pro-myelocytes, meta-myelocytes) in the peripheral blood ofnon- individuals can indicate a response toinfection, inflammation, or other stimulus to the bonemarrow" NUCLEATED RBC % (test code=NRBC%) 0.0 % 0-0 NEUTROPHIL # (test code=NT#) 7.19 K/mm3 1.8-7.7 IMMATURE GRANULOCYTE # (test code=IG#) 0.83 x10 3/uL 0-0.03 LYMPHOCYTE # (test code=LY#) 1.70 K/mm3 1.0-5.0 MONOCYTE # (test code=MO#) 1.03 K/mm3 0-0.8 EOSINOPHIL # (test code=EO#) 0.32 K/mm3 0.0-0.5 BASOPHIL # (test code=BA#) 0.09 K/mm3 0.0-0.2 NUCLEATED RBC # (test code=NRBC#) 0.00 K/mm3 0.0-0.1 MANUAL DIFF REQUIRED (test code=MDIFF) YES STAIN ACCEPTABILITY (test code=STN ACCEPTABLE) TOTAL CELLS COUNTED (test code=TCC) #CELLS SEGMENTED NEUTROPHILS (test code=SEG) % 39-69 LYMPHOCYTE (test code=LYMPH) % 25-55 MONOCYTE (test code=MON) % 0-10 EOSINOPHIL (test code=EOS) % 0.0-5.0 CABOT RINGS (test code=CAB) MORPHOLOGY COMMENT (test code=MOC) PLATELET ESTIMATE (test code=PLTEST) PLATELET MORPHOLOGY (test code=PLTMORPH) CBC W/MANUAL [id number] 05:04:00* Test Item Value Reference Range Comments WHITE BLOOD CELL (test code=WBC) 11.2 K/mm3 4.5-12.5 RED BLOOD CELL (test code=RBC) 3.34 mill/mm3 3.7-5.2 HEMOGLOBIN (test code=HGB) 10.4 gram/dL 11.5-15.5 HEMATOCRIT (test code=HCT) 32.5 % 36.0-46.0 MEAN CELL VOLUME (test code=MCV) 97.3 fL 80-98 MEAN CELL HGB (test code=MCH) 31.1 picogram 27.0-33.0 MEAN CELL HGB CONCETRATION (test code=MCHC) 32.0 gram/dL 33.0-36.0 RED CELL DISTRIBUTION WIDTH (test code=RDW) 14.1 % 11.6-16.2 RED CELL DISTRIBUTION WIDTH SD (test code=RDW-SD) 49.7 fL 37.0-51.0 PLATELET COUNT (test code=PLT) 507 K/mm3 150-450 MEAN PLATELET VOLUME (test code=MPV) 8.1 fL 6.7-11.0 IMMATURE GRANULOCYTE % (test code=IG%) 7.4 % 0.0-5.0 "The appearance of immature granulocytes (myelocytes,pro-myelocytes, meta-myelocytes) in the peripheral blood ofnon- individuals can indicate a response toinfection, inflammation, or other stimulus to the bonemarrow" NUCLEATED RBC % (test code=NRBC%) 0.0 % 0-0 NEUTROPHIL # (test code=NT#) 7.19 K/mm3 1.8-7.7 IMMATURE GRANULOCYTE # (test code=IG#) 0.83 x10 3/uL 0-0.03 LYMPHOCYTE # (test code=LY#) 1.70 K/mm3 1.0-5.0 MONOCYTE # (test code=MO#) 1.03 K/mm3 0-0.8 EOSINOPHIL # (test code=EO#) 0.32 K/mm3 0.0-0.5 BASOPHIL # (test code=BA#) 0.09 K/mm3 0.0-0.2 NUCLEATED RBC # (test code=NRBC#) 0.00 K/mm3 0.0-0.1 MANUAL DIFF REQUIRED (test code=MDIFF) YES STAIN ACCEPTABILITY (test code=STN ACCEPTABLE) TOTAL CELLS COUNTED (test code=TCC) #CELLS SEGMENTED NEUTROPHILS (test code=SEG) % 39-69 LYMPHOCYTE (test code=LYMPH) % 25-55 MONOCYTE (test code=MON) % 0-10 EOSINOPHIL (test code=EOS) % 0.0-5.0 MORPHOLOGY COMMENT (test code=MOC) PLATELET ESTIMATE (test code=PLTEST) PLATELET MORPHOLOGY (test code=PLTMORPH) CBC W/MANUAL [id number] 05:04:00* Test Item Value Reference Range Comments WHITE BLOOD CELL (test code=WBC) 11.2 K/mm3 4.5-12.5 RED BLOOD CELL (test code=RBC) 3.34 mill/mm3 3.7-5.2 HEMOGLOBIN (test code=HGB) 10.4 gram/dL 11.5-15.5 HEMATOCRIT (test code=HCT) 32.5 % 36.0-46.0 MEAN CELL VOLUME (test code=MCV) 97.3 fL 80-98 MEAN CELL HGB (test code=MCH) 31.1 picogram 27.0-33.0 MEAN CELL HGB CONCETRATION (test code=MCHC) 32.0 gram/dL 33.0-36.0 RED CELL DISTRIBUTION WIDTH (test code=RDW) 14.1 % 11.6-16.2 RED CELL DISTRIBUTION WIDTH SD (test code=RDW-SD) 49.7 fL 37.0-51.0 PLATELET COUNT (test code=PLT) 507 K/mm3 150-450 MEAN PLATELET VOLUME (test code=MPV) 8.1 fL 6.7-11.0 IMMATURE GRANULOCYTE % (test code=IG%) 7.4 % 0.0-5.0 "The appearance of immature granulocytes (myelocytes,pro-myelocytes, meta-myelocytes) in the peripheral blood ofnon- individuals can indicate a response toinfection, inflammation, or other stimulus to the bonemarrow" NUCLEATED RBC % (test code=NRBC%) 0.0 % 0-0 NEUTROPHIL # (test code=NT#) 7.19 K/mm3 1.8-7.7 IMMATURE GRANULOCYTE # (test code=IG#) 0.83 x10 3/uL 0-0.03 LYMPHOCYTE # (test code=LY#) 1.70 K/mm3 1.0-5.0 MONOCYTE # (test code=MO#) 1.03 K/mm3 0-0.8 EOSINOPHIL # (test code=EO#) 0.32 K/mm3 0.0-0.5 BASOPHIL # (test code=BA#) 0.09 K/mm3 0.0-0.2 NUCLEATED RBC # (test code=NRBC#) 0.00 K/mm3 0.0-0.1 MANUAL DIFF REQUIRED (test code=MDIFF) YES STAIN ACCEPTABILITY (test code=STN ACCEPTABLE) TOTAL CELLS COUNTED (test code=TCC) #CELLS SEGMENTED NEUTROPHILS (test code=SEG) % 39-69 LYMPHOCYTE (test code=LYMPH) % 25-55 MONOCYTE (test code=MON) % 0-10 MORPHOLOGY COMMENT (test code=MOC) PLATELET ESTIMATE (test code=PLTEST) PLATELET MORPHOLOGY (test code=PLTMORPH) CBC W/MANUAL [id number] 05:04:00* Test Item Value Reference Range Comments WHITE BLOOD CELL (test code=WBC) 11.2 K/mm3 4.5-12.5 RED BLOOD CELL (test code=RBC) 3.34 mill/mm3 3.7-5.2 HEMOGLOBIN (test code=HGB) 10.4 gram/dL 11.5-15.5 HEMATOCRIT (test code=HCT) 32.5 % 36.0-46.0 MEAN CELL VOLUME (test code=MCV) 97.3 fL 80-98 MEAN CELL HGB (test code=MCH) 31.1 picogram 27.0-33.0 MEAN CELL HGB CONCETRATION (test code=MCHC) 32.0 gram/dL 33.0-36.0 RED CELL DISTRIBUTION WIDTH (test code=RDW) 14.1 % 11.6-16.2 RED CELL DISTRIBUTION WIDTH SD (test code=RDW-SD) 49.7 fL 37.0-51.0 PLATELET COUNT (test code=PLT) 507 K/mm3 150-450 MEAN PLATELET VOLUME (test code=MPV) 8.1 fL 6.7-11.0 IMMATURE GRANULOCYTE % (test code=IG%) 7.4 % 0.0-5.0 "The appearance of immature granulocytes (myelocytes,pro-myelocytes, meta-myelocytes) in the peripheral blood ofnon- individuals can indicate a response toinfection, inflammation, or other stimulus to the bonemarrow" NUCLEATED RBC % (test code=NRBC%) 0.0 % 0-0 NEUTROPHIL # (test code=NT#) 7.19 K/mm3 1.8-7.7 IMMATURE GRANULOCYTE # (test code=IG#) 0.83 x10 3/uL 0-0.03 LYMPHOCYTE # (test code=LY#) 1.70 K/mm3 1.0-5.0 MONOCYTE # (test code=MO#) 1.03 K/mm3 0-0.8 EOSINOPHIL # (test code=EO#) 0.32 K/mm3 0.0-0.5 BASOPHIL # (test code=BA#) 0.09 K/mm3 0.0-0.2 NUCLEATED RBC # (test code=NRBC#) 0.00 K/mm3 0.0-0.1 MANUAL DIFF REQUIRED (test code=MDIFF) YES STAIN ACCEPTABILITY (test code=STN ACCEPTABLE) TOTAL CELLS COUNTED (test code=TCC) #CELLS SEGMENTED NEUTROPHILS (test code=SEG) % 39-69 LYMPHOCYTE (test code=LYMPH) % 25-55 MONOCYTE (test code=MON) % 0-10 EOSINOPHIL (test code=EOS) % 0.0-5.0 CABOT RINGS (test code=CAB) MORPHOLOGY COMMENT (test code=MOC) PLATELET ESTIMATE (test code=PLTEST) PLATELET MORPHOLOGY (test code=PLTMORPH) BASIC METABOLIC [id number] 11:39:00* Test Item Value Reference Range Comments SODIUM (test code=NA) 138 mmol/L 136-145 POTASSIUM (test code=K) 3.5 mmol/L 3.5-5.1 CHLORIDE (test code=CL) 104.0 mmol/L 98-107 CARBON DIOXIDE (test code=CO2) 29.0 mmol/L 21-32 ANION GAP (test code=GAP) 8.5 10-20 GLUCOSE (test code=GLU) 115 mg/dL 74-106 BLOOD UREA NITROGEN (test code=BUN) 4 mg/dL 7-18 GLOMERULAR FILTRATION RATE (test code=GFR) > 60 mL/min >=60 Estimated GFR by using Modified MDRD formula.Chronic kidney disease is defined as either kidney damageor GFR <60 mL/min/1.73 m2 for >3 months. CREATININE (test code=CREAT) 0.40 mg/dL 0.55-1.02 Note change in reference range due to change in reagent. BUN/CREATININE RATIO (test code=BUN/CREA) 10.0 10-20 CALCIUM (test code=CA) 8.4 mg/dL 8.5-10.1 [id number] 11:39:00* Test Item Value Reference Range Comments PHOSPHORUS (test code=PHOS) 3.0 mg/dL 2.5-4.9 [id number] 11:39:00* Test Item Value Reference Range Comments MAGNESIUM (test code=MAG) 2.1 mg/dL 1.8-2.4 CALCIUM [id number] 11:39:00* Test Item Value Reference Range Comments CALCIUM IONIZED (test code=LUCINA) 1.26 mmol/L 1.12-1.32 CBC W/MANUAL [id number] 10:22:00* Test Item Value Reference Range Comments WHITE BLOOD CELL (test code=WBC) 14.4 K/mm3 4.5-12.5 RED BLOOD CELL (test code=RBC) 3.45 mill/mm3 3.7-5.2 HEMOGLOBIN (test code=HGB) 11.0 gram/dL 11.5-15.5 HEMATOCRIT (test code=HCT) 32.6 % 36.0-46.0 MEAN CELL VOLUME (test code=MCV) 94.5 fL 80-98 MEAN CELL HGB (test code=MCH) 31.9 picogram 27.0-33.0 MEAN CELL HGB CONCETRATION (test code=MCHC) 33.7 gram/dL 33.0-36.0 RED CELL DISTRIBUTION WIDTH (test code=RDW) 14.3 % 11.6-16.2 RED CELL DISTRIBUTION WIDTH SD (test code=RDW-SD) 49.2 fL 37.0-51.0 PLATELET COUNT (test code=PLT) 505 K/mm3 150-450 RESULT VERIFIED BY REPEAT ANALYSIS MEAN PLATELET VOLUME (test code=MPV) 8.4 fL 6.7-11.0 IMMATURE GRANULOCYTE % (test code=IG%) 7.6 % 0.0-5.0 "The appearance of immature granulocytes (myelocytes,pro-myelocytes, meta-myelocytes) in the peripheral blood ofnon- individuals can indicate a response toinfection, inflammation, or other stimulus to the bon[place]" NUCLEATED RBC % (test code=NRBC%) 0.0 % 0-0 NEUTROPHIL # (test code=NT#) 9.69 K/mm3 1.8-7.7 IMMATURE GRANULOCYTE # (test code=IG#) 1.10 x10 3/uL 0-0.03 LYMPHOCYTE # (test code=LY#) 2.01 K/mm3 1.0-5.0 MONOCYTE # (test code=MO#) 1.28 K/mm3 0-0.8 EOSINOPHIL # (test code=EO#) 0.23 K/mm3 0.0-0.5 BASOPHIL # (test code=BA#) 0.08 K/mm3 0.0-0.2 NUCLEATED RBC # (test code=NRBC#) 0.00 K/mm3 0.0-0.1 MANUAL DIFF REQUIRED (test code=MDIFF) YES STAIN ACCEPTABILITY (test code=STN ACCEPTABLE) STAIN ACCEPTABLE TOTAL CELLS COUNTED (test code=TCC) 115 #CELLS SEGMENTED NEUTROPHILS (test code=SEG) 72.2 % 39-69 BAND NEUTROPHIL (test code=BAND) 0 % 0-10 LYMPHOCYTE (test code=LYMPH) 12.2 % 25-55 REACTIVE LYMPH (test code=RELYMPH) 6.1 % MONOCYTE (test code=MON) 7.8 % 0-10 EOSINOPHIL (test code=EOS) 1.7 % 0.0-5.0 BASOPHIL (test code=BASO) 0 % 0-1.0 METAMYELOCYTE (test code=META) 0 % 0-0 MYELOCYTE (test code=MYELO) 0 % 0.0-0.0 PROMYELOCYTE (test code=PROM) 0 % 0-0 POLYCHROMASIA (test code=POLC) 1+ ANISOCYTOSIS (test code=ANISO) 1+ MACROCYTOSIS (test code=MACR) 1+ PLATELET ESTIMATE (test code=PLTEST) INCREASED PLATELET MORPHOLOGY (test code=PLTMORPH) NORMAL IMMATURE FORMS (test code=IMMAT) 0 % 0-0 BASIC METABOLIC [id number] 10:16:00* Test Item Value Reference Range Comments SODIUM (test code=NA) 138 mmol/L 136-145 POTASSIUM (test code=K) 3.5 mmol/L 3.5-5.1 CHLORIDE (test code=CL) 104.0 mmol/L 98-107 CARBON DIOXIDE (test code=CO2) 29.0 mmol/L 21-32 ANION GAP (test code=GAP) 8.5 10-20 GLUCOSE (test code=GLU) 115 mg/dL 74-106 BLOOD UREA NITROGEN (test code=BUN) 4 mg/dL 7-18 GLOMERULAR FILTRATION RATE (test code=GFR) > 60 mL/min >=60 Estimated GFR by using Modified MDRD formula.Chronic kidney disease is defined as either kidney damageor GFR <60 mL/min/1.73 m2 for >3 months. CREATININE (test code=CREAT) 0.40 mg/dL 0.55-1.02 Note change in reference range due to change in reagent. BUN/CREATININE RATIO (test code=BUN/CREA) 10.0 10-20 CALCIUM (test code=CA) 8.4 mg/dL 8.5-10.1 [id number] 10:16:00* Test Item Value Reference Range Comments PHOSPHORUS (test code=PHOS) 3.0 mg/dL 2.5-4.9 [id number] 10:16:00* Test Item Value Reference Range Comments MAGNESIUM (test code=MAG) 2.1 mg/dL 1.8-2.4 CALCIUM [id number] 10:16:00* Test Item Value Reference Range Comments CALCIUM IONIZED (test code=LUCINA) mmol/L 1.12-1.32 BASIC METABOLIC [id number] 10:00:00* Test Item Value Reference Range Comments SODIUM (test code=NA) 138 mmol/L 136-145 POTASSIUM (test code=K) 3.5 mmol/L 3.5-5.1 CHLORIDE (test code=CL) 104.0 mmol/L 98-107 CARBON DIOXIDE (test code=CO2) mmol/L 21-32 ANION GAP (test code=GAP) 10-20 GLUCOSE (test code=GLU) mg/dL 74-106 BLOOD UREA NITROGEN (test code=BUN) mg/dL 7-18 GLOMERULAR FILTRATION RATE (test code=GFR) mL/min >=60 CREATININE (test code=CREAT) mg/dL 0.55-1.02 BUN/CREATININE RATIO (test code=BUN/CREA) 10-20 CALCIUM (test code=CA) 8.4 mg/dL 8.5-10.1 [id number] 10:00:00* Test Item Value Reference Range Comments PHOSPHORUS (test code=PHOS) mg/dL 2.5-4.9 [id number] 10:00:00* Test Item Value Reference Range Comments MAGNESIUM (test code=MAG) mg/dL 1.8-2.4 CALCIUM [id number] 10:00:00* Test Item Value Reference Range Comments CALCIUM IONIZED (test code=LUCINA) mmol/L 1.12-1.32 BASIC METABOLIC [id number] 09:59:00* Test Item Value Reference Range Comments SODIUM (test code=NA) 138 mmol/L 136-145 POTASSIUM (test code=K) 3.5 mmol/L 3.5-5.1 CHLORIDE (test code=CL) 104.0 mmol/L 98-107 CARBON DIOXIDE (test code=CO2) mmol/L 21-32 ANION GAP (test code=GAP) 10-20 GLUCOSE (test code=GLU) mg/dL 74-106 BLOOD UREA NITROGEN (test code=BUN) mg/dL 7-18 GLOMERULAR FILTRATION RATE (test code=GFR) mL/min >=60 CREATININE (test code=CREAT) mg/dL 0.55-1.02 BUN/CREATININE RATIO (test code=BUN/CREA) 10-20 CALCIUM (test code=CA) mg/dL 8.5-10.1 [id number] 09:59:00* Test Item Value Reference Range Comments PHOSPHORUS (test code=PHOS) mg/dL 2.5-4.9 [id number] 09:59:00* Test Item Value Reference Range Comments MAGNESIUM (test code=MAG) mg/dL 1.8-2.4 CALCIUM [id number] 09:59:00* Test Item Value Reference Range Comments CALCIUM IONIZED (test code=LUCINA) mmol/L 1.12-1.32 CBC W/MANUAL [id number] 09:49:00* Test Item Value Reference Range Comments WHITE BLOOD CELL (test code=WBC) 14.4 K/mm3 4.5-12.5 RED BLOOD CELL (test code=RBC) 3.45 mill/mm3 3.7-5.2 HEMOGLOBIN (test code=HGB) 11.0 gram/dL 11.5-15.5 HEMATOCRIT (test code=HCT) 32.6 % 36.0-46.0 MEAN CELL VOLUME (test code=MCV) 94.5 fL 80-98 MEAN CELL HGB (test code=MCH) 31.9 picogram 27.0-33.0 MEAN CELL HGB CONCETRATION (test code=MCHC) 33.7 gram/dL 33.0-36.0 RED CELL DISTRIBUTION WIDTH (test code=RDW) 14.3 % 11.6-16.2 RED CELL DISTRIBUTION WIDTH SD (test code=RDW-SD) 49.2 fL 37.0-51.0 PLATELET COUNT (test code=PLT) 505 K/mm3 150-450 RESULT VERIFIED BY REPEAT ANALYSIS MEAN PLATELET VOLUME (test code=MPV) 8.4 fL 6.7-11.0 IMMATURE GRANULOCYTE % (test code=IG%) 7.6 % 0.0-5.0 "The appearance of immature granulocytes (myelocytes,pro-myelocytes, meta-myelocytes) in the peripheral blood ofnon- individuals can indicate a response toinfection, inflammation, or other stimulus to the bonemarrow" NUCLEATED RBC % (test code=NRBC%) 0.0 % 0-0 NEUTROPHIL # (test code=NT#) 9.69 K/mm3 1.8-7.7 IMMATURE GRANULOCYTE # (test code=IG#) 1.10 x10 3/uL 0-0.03 LYMPHOCYTE # (test code=LY#) 2.01 K/mm3 1.0-5.0 MONOCYTE # (test code=MO#) 1.28 K/mm3 0-0.8 EOSINOPHIL # (test code=EO#) 0.23 K/mm3 0.0-0.5 BASOPHIL # (test code=BA#) 0.08 K/mm3 0.0-0.2 NUCLEATED RBC # (test code=NRBC#) 0.00 K/mm3 0.0-0.1 MANUAL DIFF REQUIRED (test code=MDIFF) YES STAIN ACCEPTABILITY (test code=STN ACCEPTABLE) TOTAL CELLS COUNTED (test code=TCC) #CELLS SEGMENTED NEUTROPHILS (test code=SEG) % 39-69 LYMPHOCYTE (test code=LYMPH) % 25-55 MONOCYTE (test code=MON) % 0-10 EOSINOPHIL (test code=EOS) % 0.0-5.0 CABOT RINGS (test code=CAB) MORPHOLOGY COMMENT (test code=MOC) PLATELET ESTIMATE (test code=PLTEST) PLATELET MORPHOLOGY (test code=PLTMORPH) CBC W/MANUAL [id number] 09:49:00* Test Item Value Reference Range Comments WHITE BLOOD CELL (test code=WBC) 14.4 K/mm3 4.5-12.5 RED BLOOD CELL (test code=RBC) 3.45 mill/mm3 3.7-5.2 HEMOGLOBIN (test code=HGB) 11.0 gram/dL 11.5-15.5 HEMATOCRIT (test code=HCT) 32.6 % 36.0-46.0 MEAN CELL VOLUME (test code=MCV) 94.5 fL 80-98 MEAN CELL HGB (test code=MCH) 31.9 picogram 27.0-33.0 MEAN CELL HGB CONCETRATION (test code=MCHC) 33.7 gram/dL 33.0-36.0 RED CELL DISTRIBUTION WIDTH (test code=RDW) 14.3 % 11.6-16.2 RED CELL DISTRIBUTION WIDTH SD (test code=RDW-SD) 49.2 fL 37.0-51.0 PLATELET COUNT (test code=PLT) 505 K/mm3 150-450 RESULT VERIFIED BY REPEAT ANALYSIS MEAN PLATELET VOLUME (test code=MPV) 8.4 fL 6.7-11.0 IMMATURE GRANULOCYTE % (test code=IG%) 7.6 % 0.0-5.0 "The appearance of immature granulocytes (myelocytes,pro-myelocytes, meta-myelocytes) in the peripheral blood ofnon- individuals can indicate a response toinfection, inflammation, or other stimulus to the bonemarrow" NUCLEATED RBC % (test code=NRBC%) 0.0 % 0-0 NEUTROPHIL # (test code=NT#) 9.69 K/mm3 1.8-7.7 IMMATURE GRANULOCYTE # (test code=IG#) 1.10 x10 3/uL 0-0.03 LYMPHOCYTE # (test code=LY#) 2.01 K/mm3 1.0-5.0 MONOCYTE # (test code=MO#) 1.28 K/mm3 0-0.8 EOSINOPHIL # (test code=EO#) 0.23 K/mm3 0.0-0.5 BASOPHIL # (test code=BA#) 0.08 K/mm3 0.0-0.2 NUCLEATED RBC # (test code=NRBC#) 0.00 K/mm3 0.0-0.1 MANUAL DIFF REQUIRED (test code=MDIFF) YES STAIN ACCEPTABILITY (test code=STN ACCEPTABLE) TOTAL CELLS COUNTED (test code=TCC) #CELLS SEGMENTED NEUTROPHILS (test code=SEG) % 39-69 LYMPHOCYTE (test code=LYMPH) % 25-55 MONOCYTE (test code=MON) % 0-10 EOSINOPHIL (test code=EOS) % 0.0-5.0 MORPHOLOGY COMMENT (test code=MOC) PLATELET ESTIMATE (test code=PLTEST) PLATELET MORPHOLOGY (test code=PLTMORPH) CBC W/MANUAL [id number] 09:49:00* Test Item Value Reference Range Comments WHITE BLOOD CELL (test code=WBC) 14.4 K/mm3 4.5-12.5 RED BLOOD CELL (test code=RBC) 3.45 mill/mm3 3.7-5.2 HEMOGLOBIN (test code=HGB) 11.0 gram/dL 11.5-15.5 HEMATOCRIT (test code=HCT) 32.6 % 36.0-46.0 MEAN CELL VOLUME (test code=MCV) 94.5 fL 80-98 MEAN CELL HGB (test code=MCH) 31.9 picogram 27.0-33.0 MEAN CELL HGB CONCETRATION (test code=MCHC) 33.7 gram/dL 33.0-36.0 RED CELL DISTRIBUTION WIDTH (test code=RDW) 14.3 % 11.6-16.2 RED CELL DISTRIBUTION WIDTH SD (test code=RDW-SD) 49.2 fL 37.0-51.0 PLATELET COUNT (test code=PLT) 505 K/mm3 150-450 RESULT VERIFIED BY REPEAT ANALYSIS MEAN PLATELET VOLUME (test code=MPV) 8.4 fL 6.7-11.0 IMMATURE GRANULOCYTE % (test code=IG%) 7.6 % 0.0-5.0 "The appearance of immature granulocytes (myelocytes,pro-myelocytes, meta-myelocytes) in the peripheral blood ofnon- individuals can indicate a response toinfection, inflammation, or other stimulus to the bonemarrow" NUCLEATED RBC % (test code=NRBC%) 0.0 % 0-0 NEUTROPHIL # (test code=NT#) 9.69 K/mm3 1.8-7.7 IMMATURE GRANULOCYTE # (test code=IG#) 1.10 x10 3/uL 0-0.03 LYMPHOCYTE # (test code=LY#) 2.01 K/mm3 1.0-5.0 MONOCYTE # (test code=MO#) 1.28 K/mm3 0-0.8 EOSINOPHIL # (test code=EO#) 0.23 K/mm3 0.0-0.5 BASOPHIL # (test code=BA#) 0.08 K/mm3 0.0-0.2 NUCLEATED RBC # (test code=NRBC#) 0.00 K/mm3 0.0-0.1 MANUAL DIFF REQUIRED (test code=MDIFF) YES STAIN ACCEPTABILITY (test code=STN ACCEPTABLE) TOTAL CELLS COUNTED (test code=TCC) #CELLS SEGMENTED NEUTROPHILS (test code=SEG) % 39-69 LYMPHOCYTE (test code=LYMPH) % 25-55 MONOCYTE (test code=MON) % 0-10 MORPHOLOGY COMMENT (test code=MOC) PLATELET ESTIMATE (test code=PLTEST) PLATELET MORPHOLOGY (test code=PLTMORPH) CBC W/MANUAL [id number] 09:48:00* Test Item Value Reference Range Comments WHITE BLOOD CELL (test code=WBC) 14.4 K/mm3 4.5-12.5 RED BLOOD CELL (test code=RBC) 3.45 mill/mm3 3.7-5.2 HEMOGLOBIN (test code=HGB) 11.0 gram/dL 11.5-15.5 HEMATOCRIT (test code=HCT) 32.6 % 36.0-46.0 MEAN CELL VOLUME (test code=MCV) 94.5 fL 80-98 MEAN CELL HGB (test code=MCH) 31.9 picogram 27.0-33.0 MEAN CELL HGB CONCETRATION (test code=MCHC) 33.7 gram/dL 33.0-36.0 RED CELL DISTRIBUTION WIDTH (test code=RDW) 14.3 % 11.6-16.2 RED CELL DISTRIBUTION WIDTH SD (test code=RDW-SD) 49.2 fL 37.0-51.0 PLATELET COUNT (test code=PLT) 505 K/mm3 150-450 RESULT VERIFIED BY REPEAT ANALYSIS MEAN PLATELET VOLUME (test code=MPV) 8.4 fL 6.7-11.0 IMMATURE GRANULOCYTE % (test code=IG%) 7.6 % 0.0-5.0 "The appearance of immature granulocytes (myelocytes,pro-myelocytes, meta-myelocytes) in the peripheral blood ofnon- individuals can indicate a response toinfection, inflammation, or other stimulus to the bonemarrow" NUCLEATED RBC % (test code=NRBC%) 0.0 % 0-0 NEUTROPHIL # (test code=NT#) 9.69 K/mm3 1.8-7.7 IMMATURE GRANULOCYTE # (test code=IG#) 1.10 x10 3/uL 0-0.03 LYMPHOCYTE # (test code=LY#) 2.01 K/mm3 1.0-5.0 MONOCYTE # (test code=MO#) 1.28 K/mm3 0-0.8 EOSINOPHIL # (test code=EO#) 0.23 K/mm3 0.0-0.5 BASOPHIL # (test code=BA#) 0.08 K/mm3 0.0-0.2 NUCLEATED RBC # (test code=NRBC#) 0.00 K/mm3 0.0-0.1 MANUAL DIFF REQUIRED (test code=MDIFF) YES STAIN ACCEPTABILITY (test code=STN ACCEPTABLE) TOTAL CELLS COUNTED (test code=TCC) #CELLS SEGMENTED NEUTROPHILS (test code=SEG) % 39-69 LYMPHOCYTE (test code=LYMPH) % 25-55 MONOCYTE (test code=MON) % 0-10 EOSINOPHIL (test code=EOS) % 0.0-5.0 CABOT RINGS (test code=CAB) MORPHOLOGY COMMENT (test code=MOC) PLATELET ESTIMATE (test code=PLTEST) PLATELET MORPHOLOGY (test code=PLTMORPH) CBC W/MANUAL [id number] 09:48:00* Test Item Value Reference Range Comments WHITE BLOOD CELL (test code=WBC) 14.4 K/mm3 4.5-12.5 RED BLOOD CELL (test code=RBC) 3.45 mill/mm3 3.7-5.2 HEMOGLOBIN (test code=HGB) 11.0 gram/dL 11.5-15.5 HEMATOCRIT (test code=HCT) 32.6 % 36.0-46.0 MEAN CELL VOLUME (test code=MCV) 94.5 fL 80-98 MEAN CELL HGB (test code=MCH) 31.9 picogram 27.0-33.0 MEAN CELL HGB CONCETRATION (test code=MCHC) 33.7 gram/dL 33.0-36.0 RED CELL DISTRIBUTION WIDTH (test code=RDW) 14.3 % 11.6-16.2 RED CELL DISTRIBUTION WIDTH SD (test code=RDW-SD) 49.2 fL 37.0-51.0 PLATELET COUNT (test code=PLT) 505 K/mm3 150-450 RESULT VERIFIED BY REPEAT ANALYSIS MEAN PLATELET VOLUME (test code=MPV) 8.4 fL 6.7-11.0 IMMATURE GRANULOCYTE % (test code=IG%) 7.6 % 0.0-5.0 "The appearance of immature granulocytes (myelocytes,pro-myelocytes, meta-myelocytes) in the peripheral blood ofnon- individuals can indicate a response toinfection, inflammation, or other stimulus to the bonemarrow" NUCLEATED RBC % (test code=NRBC%) 0.0 % 0-0 NEUTROPHIL # (test code=NT#) 9.69 K/mm3 1.8-7.7 IMMATURE GRANULOCYTE # (test code=IG#) 1.10 x10 3/uL 0-0.03 LYMPHOCYTE # (test code=LY#) 2.01 K/mm3 1.0-5.0 MONOCYTE # (test code=MO#) 1.28 K/mm3 0-0.8 EOSINOPHIL # (test code=EO#) 0.23 K/mm3 0.0-0.5 BASOPHIL # (test code=BA#) 0.08 K/mm3 0.0-0.2 NUCLEATED RBC # (test code=NRBC#) 0.00 K/mm3 0.0-0.1 MANUAL DIFF REQUIRED (test code=MDIFF) YES STAIN ACCEPTABILITY (test code=STN ACCEPTABLE) TOTAL CELLS COUNTED (test code=TCC) #CELLS SEGMENTED NEUTROPHILS (test code=SEG) % 39-69 LYMPHOCYTE (test code=LYMPH) % 25-55 MONOCYTE (test code=MON) % 0-10 EOSINOPHIL (test code=EOS) % 0.0-5.0 CABOT RINGS (test code=CAB) MORPHOLOGY COMMENT (test code=MOC) PLATELET ESTIMATE (test code=PLTEST) PLATELET MORPHOLOGY (test code=PLTMORPH) - XR CHEST 1 [id number] 08:02:00 FAX: Javi Tejeda MD [phone] [place]: St: ADM FAX: Jimmie Watters MD [phone] Name: BLADIMIR FAROOQ [facility] : 1975 Age/S: 43/F [address] [facility] Unit #: [id number] Loc: V.[address] [place] [address] Phys: Jimmie Monreal MD Acct: [id number] Dis Date: Status: ADM IN PHONE #: [phone] Exam Date: 01/01/2019 07 FAX #: [phone] Reason: CHEST TUBE EXAMS: CPT CODE: [id number] XR CHEST 1 V 57380 HISTORY: Pneumonia. COMPARISON: December 30, 2018. Left chest tube is unchanged. Left basal subsegmental atelectasis. Small fluid. No infiltrates or congestion. Right lung is clear. Cardiomegaly. IMPRESSION: Left basal subsegmental atelectasis and small effusion appear essentially unchanged. at 0802 Reported and signed by: Jh Oakse M.D. CC: Javi Tejeda MD; Jimmie Monreal MD Technologist: Han MILAN(R) Trnscrd Date/Time/By: 01/01/2019 (0802) : By: [email or web address] Orig Print D/T: S: 01/01/2019 (0805) PAGE 1 Signed Report CBC W/MANUAL [id number] 09:09:00* Test Item Value Reference Range Comments WHITE BLOOD CELL (test code=WBC) 16.8 K/mm3 4.5-12.5 RED BLOOD CELL (test code=RBC) 3.36 mill/mm3 3.7-5.2 HEMOGLOBIN (test code=HGB) 10.7 gram/dL 11.5-15.5 HEMATOCRIT (test code=HCT) 31.4 % 36.0-46.0 MEAN CELL VOLUME (test code=MCV) 93.5 fL 80-98 MEAN CELL HGB (test code=MCH) 31.8 picogram 27.0-33.0 MEAN CELL HGB CONCETRATION (test code=MCHC) 34.1 gram/dL 33.0-36.0 RED CELL DISTRIBUTION WIDTH (test code=RDW) 14.3 % 11.6-16.2 RED CELL DISTRIBUTION WIDTH SD (test code=RDW-SD) 48.7 fL 37.0-51.0 PLATELET COUNT (test code=PLT) 434 K/mm3 150-450 MEAN PLATELET VOLUME (test code=MPV) 8.3 fL 6.7-11.0 IMMATURE GRANULOCYTE % (test code=IG%) 6.5 % 0.0-5.0 "The appearance of immature granulocytes (myelocytes,pro-myelocytes, meta-myelocytes) in the peripheral blood ofnon- individuals can indicate a response toinfection, inflammation, or other stimulus to the bonemarrow" NUCLEATED RBC % (test code=NRBC%) 0.0 % 0-0 NEUTROPHIL # (test code=NT#) 12.10 K/mm3 1.8-7.7 IMMATURE GRANULOCYTE # (test code=IG#) 1.09 x10 3/uL 0-0.03 LYMPHOCYTE # (test code=LY#) 1.74 K/mm3 1.0-5.0 MONOCYTE # (test code=MO#) 1.70 K/mm3 0-0.8 EOSINOPHIL # (test code=EO#) 0.15 K/mm3 0.0-0.5 BASOPHIL # (test code=BA#) 0.06 K/mm3 0.0-0.2 NUCLEATED RBC # (test code=NRBC#) 0.00 K/mm3 0.0-0.1 MANUAL DIFF REQUIRED (test code=MDIFF) YES STAIN ACCEPTABILITY (test code=STN ACCEPTABLE) STAIN ACCEPTABLE TOTAL CELLS COUNTED (test code=TCC) 115 #CELLS SEGMENTED NEUTROPHILS (test code=SEG) 78.3 % 39-69 BAND NEUTROPHIL (test code=BAND) 1.7 % 0-10 LYMPHOCYTE (test code=LYMPH) 8.7 % 25-55 REACTIVE LYMPH (test code=RELYMPH) 1.7 % MONOCYTE (test code=MON) 4.3 % 0-10 EOSINOPHIL (test code=EOS) 2.6 % 0.0-5.0 BASOPHIL (test code=BASO) 0.9 % 0-1.0 METAMYELOCYTE (test code=META) 0 % 0-0 MYELOCYTE (test code=MYELO) 0.9 % 0.0-0.0 PROMYELOCYTE (test code=PROM) 0 % 0-0 POLYCHROMASIA (test code=POLC) 1+ POIKILOCYTOSIS (test code=POIK) 1+ BASOPHILIC STIPPLING (test code=STP) 1+ ANISOCYTOSIS (test code=ANISO) 1+ BACILIO CELLS (test code=BACILIO) 1+ NONE PLATELET ESTIMATE (test code=PLTEST) ADEQUATE PLATELET MORPHOLOGY (test code=PLTMORPH) NORMAL IMMATURE FORMS (test code=IMMAT) 0.9 % 0-0 BASIC METABOLIC [id number] 07:22:00* Test Item Value Reference Range Comments SODIUM (test code=NA) 138 mmol/L 136-145 POTASSIUM (test code=K) 3.9 mmol/L 3.5-5.1 CHLORIDE (test code=CL) 103.0 mmol/L 98-107 CARBON DIOXIDE (test code=CO2) 29.0 mmol/L 21-32 ANION GAP (test code=GAP) 9.9 10-20 GLUCOSE (test code=GLU) 94 mg/dL 74-106 BLOOD UREA NITROGEN (test code=BUN) 4 mg/dL 7-18 GLOMERULAR FILTRATION RATE (test code=GFR) > 60 mL/min >=60 Estimated GFR by using Modified MDRD formula.Chronic kidney disease is defined as either kidney damageor GFR <60 mL/min/1.73 m2 for >3 months. CREATININE (test code=CREAT) 0.30 mg/dL 0.55-1.02 Note change in reference range due to change in reagent. BUN/CREATININE RATIO (test code=BUN/CREA) 13.3 10-20 CALCIUM (test code=CA) 8.0 mg/dL 8.5-10.1 [id number] 07:22:00* Test Item Value Reference Range Comments PHOSPHORUS (test code=PHOS) 3.2 mg/dL 2.5-4.9 [id number] 07:22:00* Test Item Value Reference Range Comments MAGNESIUM (test code=MAG) 2.1 mg/dL 1.8-2.4 CALCIUM [id number] 07:22:00* Test Item Value Reference Range Comments CALCIUM IONIZED (test code=LUCINA) 1.22 mmol/L 1.12-1.32 BASIC METABOLIC [id number] 07:19:00* Test Item Value Reference Range Comments SODIUM (test code=NA) 138 mmol/L 136-145 POTASSIUM (test code=K) 3.9 mmol/L 3.5-5.1 CHLORIDE (test code=CL) 103.0 mmol/L 98-107 CARBON DIOXIDE (test code=CO2) mmol/L 21-32 ANION GAP (test code=GAP) 10-20 GLUCOSE (test code=GLU) mg/dL 74-106 BLOOD UREA NITROGEN (test code=BUN) mg/dL 7-18 GLOMERULAR FILTRATION RATE (test code=GFR) mL/min >=60 CREATININE (test code=CREAT) mg/dL 0.55-1.02 BUN/CREATININE RATIO (test code=BUN/CREA) 10-20 CALCIUM (test code=CA) mg/dL 8.5-10.1 [id number] 07:19:00* Test Item Value Reference Range Comments PHOSPHORUS (test code=PHOS) mg/dL 2.5-4.9 [id number] 07:19:00* Test Item Value Reference Range Comments MAGNESIUM (test code=MAG) mg/dL 1.8-2.4 CALCIUM [id number] 07:19:00* Test Item Value Reference Range Comments CALCIUM IONIZED (test code=LUCINA) 1.22 mmol/L 1.12-1.32 BASIC METABOLIC [id number] 07:07:00* Test Item Value Reference Range Comments SODIUM (test code=NA) mmol/L 136-145 POTASSIUM (test code=K) mmol/L 3.5-5.1 CHLORIDE (test code=CL) mmol/L 98-107 CARBON DIOXIDE (test code=CO2) mmol/L 21-32 ANION GAP (test code=GAP) 10-20 GLUCOSE (test code=GLU) mg/dL 74-106 BLOOD UREA NITROGEN (test code=BUN) mg/dL 7-18 GLOMERULAR FILTRATION RATE (test code=GFR) mL/min >=60 CREATININE (test code=CREAT) mg/dL 0.55-1.02 BUN/CREATININE RATIO (test code=BUN/CREA) 10-20 CALCIUM (test code=CA) mg/dL 8.5-10.1 [id number] 07:07:00* Test Item Value Reference Range Comments PHOSPHORUS (test code=PHOS) mg/dL 2.5-4.9 [id number] 07:07:00* Test Item Value Reference Range Comments MAGNESIUM (test code=MAG) mg/dL 1.8-2.4 CALCIUM [id number] 07:07:00* Test Item Value Reference Range Comments CALCIUM IONIZED (test code=LUCINA) 1.22 mmol/L 1.12-1.32 CBC W/MANUAL [id number] 06:52:00* Test Item Value Reference Range Comments WHITE BLOOD CELL (test code=WBC) 16.8 K/mm3 4.5-12.5 RED BLOOD CELL (test code=RBC) 3.36 mill/mm3 3.7-5.2 HEMOGLOBIN (test code=HGB) 10.7 gram/dL 11.5-15.5 HEMATOCRIT (test code=HCT) 31.4 % 36.0-46.0 MEAN CELL VOLUME (test code=MCV) 93.5 fL 80-98 MEAN CELL HGB (test code=MCH) 31.8 picogram 27.0-33.0 MEAN CELL HGB CONCETRATION (test code=MCHC) 34.1 gram/dL 33.0-36.0 RED CELL DISTRIBUTION WIDTH (test code=RDW) 14.3 % 11.6-16.2 RED CELL DISTRIBUTION WIDTH SD (test code=RDW-SD) 48.7 fL 37.0-51.0 PLATELET COUNT (test code=PLT) 434 K/mm3 150-450 MEAN PLATELET VOLUME (test code=MPV) 8.3 fL 6.7-11.0 IMMATURE GRANULOCYTE % (test code=IG%) 6.5 % 0.0-5.0 "The appearance of immature granulocytes (myelocytes,pro-myelocytes, meta-myelocytes) in the peripheral blood ofnon- individuals can indicate a response toinfection, inflammation, or other stimulus to the bonemarrow" NUCLEATED RBC % (test code=NRBC%) 0.0 % 0-0 NEUTROPHIL # (test code=NT#) 12.10 K/mm3 1.8-7.7 IMMATURE GRANULOCYTE # (test code=IG#) 1.09 x10 3/uL 0-0.03 LYMPHOCYTE # (test code=LY#) 1.74 K/mm3 1.0-5.0 MONOCYTE # (test code=MO#) 1.70 K/mm3 0-0.8 EOSINOPHIL # (test code=EO#) 0.15 K/mm3 0.0-0.5 BASOPHIL # (test code=BA#) 0.06 K/mm3 0.0-0.2 NUCLEATED RBC # (test code=NRBC#) 0.00 K/mm3 0.0-0.1 MANUAL DIFF REQUIRED (test code=MDIFF) YES STAIN ACCEPTABILITY (test code=STN ACCEPTABLE) TOTAL CELLS COUNTED (test code=TCC) #CELLS SEGMENTED NEUTROPHILS (test code=SEG) % 39-69 LYMPHOCYTE (test code=LYMPH) % 25-55 MONOCYTE (test code=MON) % 0-10 EOSINOPHIL (test code=EOS) % 0.0-5.0 CABOT RINGS (test code=CAB) MORPHOLOGY COMMENT (test code=MOC) PLATELET ESTIMATE (test code=PLTEST) PLATELET MORPHOLOGY (test code=PLTMORPH) CBC W/MANUAL [id number] 06:52:00* Test Item Value Reference Range Comments WHITE BLOOD CELL (test code=WBC) 16.8 K/mm3 4.5-12.5 RED BLOOD CELL (test code=RBC) 3.36 mill/mm3 3.7-5.2 HEMOGLOBIN (test code=HGB) 10.7 gram/dL 11.5-15.5 HEMATOCRIT (test code=HCT) 31.4 % 36.0-46.0 MEAN CELL VOLUME (test code=MCV) 93.5 fL 80-98 MEAN CELL HGB (test code=MCH) 31.8 picogram 27.0-33.0 MEAN CELL HGB CONCETRATION (test code=MCHC) 34.1 gram/dL 33.0-36.0 RED CELL DISTRIBUTION WIDTH (test code=RDW) 14.3 % 11.6-16.2 RED CELL DISTRIBUTION WIDTH SD (test code=RDW-SD) 48.7 fL 37.0-51.0 PLATELET COUNT (test code=PLT) 434 K/mm3 150-450 MEAN PLATELET VOLUME (test code=MPV) 8.3 fL 6.7-11.0 IMMATURE GRANULOCYTE % (test code=IG%) 6.5 % 0.0-5.0 "The appearance of immature granulocytes (myelocytes,pro-myelocytes, meta-myelocytes) in the peripheral blood ofnon- individuals can indicate a response toinfection, inflammation, or other stimulus to the bonemarrow" NUCLEATED RBC % (test code=NRBC%) 0.0 % 0-0 NEUTROPHIL # (test code=NT#) 12.10 K/mm3 1.8-7.7 IMMATURE GRANULOCYTE # (test code=IG#) 1.09 x10 3/uL 0-0.03 LYMPHOCYTE # (test code=LY#) 1.74 K/mm3 1.0-5.0 MONOCYTE # (test code=MO#) 1.70 K/mm3 0-0.8 EOSINOPHIL # (test code=EO#) 0.15 K/mm3 0.0-0.5 BASOPHIL # (test code=BA#) 0.06 K/mm3 0.0-0.2 NUCLEATED RBC # (test code=NRBC#) 0.00 K/mm3 0.0-0.1 MANUAL DIFF REQUIRED (test code=MDIFF) YES STAIN ACCEPTABILITY (test code=STN ACCEPTABLE) TOTAL CELLS COUNTED (test code=TCC) #CELLS SEGMENTED NEUTROPHILS (test code=SEG) % 39-69 LYMPHOCYTE (test code=LYMPH) % 25-55 MONOCYTE (test code=MON) % 0-10 EOSINOPHIL (test code=EOS) % 0.0-5.0 CABOT RINGS (test code=CAB) MORPHOLOGY COMMENT (test code=MOC) PLATELET ESTIMATE (test code=PLTEST) PLATELET MORPHOLOGY (test code=PLTMORPH) CBC W/MANUAL [id number] 06:52:00* Test Item Value Reference Range Comments WHITE BLOOD CELL (test code=WBC) 16.8 K/mm3 4.5-12.5 RED BLOOD CELL (test code=RBC) 3.36 mill/mm3 3.7-5.2 HEMOGLOBIN (test code=HGB) 10.7 gram/dL 11.5-15.5 HEMATOCRIT (test code=HCT) 31.4 % 36.0-46.0 MEAN CELL VOLUME (test code=MCV) 93.5 fL 80-98 MEAN CELL HGB (test code=MCH) 31.8 picogram 27.0-33.0 MEAN CELL HGB CONCETRATION (test code=MCHC) 34.1 gram/dL 33.0-36.0 RED CELL DISTRIBUTION WIDTH (test code=RDW) 14.3 % 11.6-16.2 RED CELL DISTRIBUTION WIDTH SD (test code=RDW-SD) 48.7 fL 37.0-51.0 PLATELET COUNT (test code=PLT) 434 K/mm3 150-450 MEAN PLATELET VOLUME (test code=MPV) 8.3 fL 6.7-11.0 IMMATURE GRANULOCYTE % (test code=IG%) 6.5 % 0.0-5.0 "The appearance of immature granulocytes (myelocytes,pro-myelocytes, meta-myelocytes) in the peripheral blood ofnon- individuals can indicate a response toinfection, inflammation, or other stimulus to the bonemarrow" NUCLEATED RBC % (test code=NRBC%) 0.0 % 0-0 NEUTROPHIL # (test code=NT#) 12.10 K/mm3 1.8-7.7 IMMATURE GRANULOCYTE # (test code=IG#) 1.09 x10 3/uL 0-0.03 LYMPHOCYTE # (test code=LY#) 1.74 K/mm3 1.0-5.0 MONOCYTE # (test code=MO#) 1.70 K/mm3 0-0.8 EOSINOPHIL # (test code=EO#) 0.15 K/mm3 0.0-0.5 BASOPHIL # (test code=BA#) 0.06 K/mm3 0.0-0.2 NUCLEATED RBC # (test code=NRBC#) 0.00 K/mm3 0.0-0.1 MANUAL DIFF REQUIRED (test code=MDIFF) YES STAIN ACCEPTABILITY (test code=STN ACCEPTABLE) TOTAL CELLS COUNTED (test code=TCC) #CELLS SEGMENTED NEUTROPHILS (test code=SEG) % 39-69 LYMPHOCYTE (test code=LYMPH) % 25-55 MONOCYTE (test code=MON) % 0-10 EOSINOPHIL (test code=EOS) % 0.0-5.0 MORPHOLOGY COMMENT (test code=MOC) PLATELET ESTIMATE (test code=PLTEST) PLATELET MORPHOLOGY (test code=PLTMORPH) CBC W/MANUAL [id number] 06:52:00* Test Item Value Reference Range Comments WHITE BLOOD CELL (test code=WBC) 16.8 K/mm3 4.5-12.5 RED BLOOD CELL (test code=RBC) 3.36 mill/mm3 3.7-5.2 HEMOGLOBIN (test code=HGB) 10.7 gram/dL 11.5-15.5 HEMATOCRIT (test code=HCT) 31.4 % 36.0-46.0 MEAN CELL VOLUME (test code=MCV) 93.5 fL 80-98 MEAN CELL HGB (test code=MCH) 31.8 picogram 27.0-33.0 MEAN CELL HGB CONCETRATION (test code=MCHC) 34.1 gram/dL 33.0-36.0 RED CELL DISTRIBUTION WIDTH (test code=RDW) 14.3 % 11.6-16.2 RED CELL DISTRIBUTION WIDTH SD (test code=RDW-SD) 48.7 fL 37.0-51.0 PLATELET COUNT (test code=PLT) 434 K/mm3 150-450 MEAN PLATELET VOLUME (test code=MPV) 8.3 fL 6.7-11.0 IMMATURE GRANULOCYTE % (test code=IG%) 6.5 % 0.0-5.0 "The appearance of immature granulocytes (myelocytes,pro-myelocytes, meta-myelocytes) in the peripheral blood ofnon- individuals can indicate a response toinfection, inflammation, or other stimulus to the bonemarrow" NUCLEATED RBC % (test code=NRBC%) 0.0 % 0-0 NEUTROPHIL # (test code=NT#) 12.10 K/mm3 1.8-7.7 IMMATURE GRANULOCYTE # (test code=IG#) 1.09 x10 3/uL 0-0.03 LYMPHOCYTE # (test code=LY#) 1.74 K/mm3 1.0-5.0 MONOCYTE # (test code=MO#) 1.70 K/mm3 0-0.8 EOSINOPHIL # (test code=EO#) 0.15 K/mm3 0.0-0.5 BASOPHIL # (test code=BA#) 0.06 K/mm3 0.0-0.2 NUCLEATED RBC # (test code=NRBC#) 0.00 K/mm3 0.0-0.1 MANUAL DIFF REQUIRED (test code=MDIFF) YES STAIN ACCEPTABILITY (test code=STN ACCEPTABLE) TOTAL CELLS COUNTED (test code=TCC) #CELLS SEGMENTED NEUTROPHILS (test code=SEG) % 39-69 LYMPHOCYTE (test code=LYMPH) % 25-55 MONOCYTE (test code=MON) % 0-10 MORPHOLOGY COMMENT (test code=MOC) PLATELET ESTIMATE (test code=PLTEST) PLATELET MORPHOLOGY (test code=PLTMORPH) CBC W/MANUAL [id number] 06:52:00* Test Item Value Reference Range Comments WHITE BLOOD CELL (test code=WBC) 16.8 K/mm3 4.5-12.5 RED BLOOD CELL (test code=RBC) 3.36 mill/mm3 3.7-5.2 HEMOGLOBIN (test code=HGB) 10.7 gram/dL 11.5-15.5 HEMATOCRIT (test code=HCT) 31.4 % 36.0-46.0 MEAN CELL VOLUME (test code=MCV) 93.5 fL 80-98 MEAN CELL HGB (test code=MCH) 31.8 picogram 27.0-33.0 MEAN CELL HGB CONCETRATION (test code=MCHC) 34.1 gram/dL 33.0-36.0 RED CELL DISTRIBUTION WIDTH (test code=RDW) 14.3 % 11.6-16.2 RED CELL DISTRIBUTION WIDTH SD (test code=RDW-SD) 48.7 fL 37.0-51.0 PLATELET COUNT (test code=PLT) 434 K/mm3 150-450 MEAN PLATELET VOLUME (test code=MPV) 8.3 fL 6.7-11.0 IMMATURE GRANULOCYTE % (test code=IG%) 6.5 % 0.0-5.0 "The appearance of immature granulocytes (myelocytes,pro-myelocytes, meta-myelocytes) in the peripheral blood ofnon- individuals can indicate a response toinfection, inflammation, or other stimulus to the bonemarrow" NUCLEATED RBC % (test code=NRBC%) 0.0 % 0-0 NEUTROPHIL # (test code=NT#) 12.10 K/mm3 1.8-7.7 IMMATURE GRANULOCYTE # (test code=IG#) 1.09 x10 3/uL 0-0.03 LYMPHOCYTE # (test code=LY#) 1.74 K/mm3 1.0-5.0 MONOCYTE # (test code=MO#) 1.70 K/mm3 0-0.8 EOSINOPHIL # (test code=EO#) 0.15 K/mm3 0.0-0.5 BASOPHIL # (test code=BA#) 0.06 K/mm3 0.0-0.2 NUCLEATED RBC # (test code=NRBC#) 0.00 K/mm3 0.0-0.1 MANUAL DIFF REQUIRED (test code=MDIFF) YES STAIN ACCEPTABILITY (test code=STN ACCEPTABLE) TOTAL CELLS COUNTED (test code=TCC) #CELLS SEGMENTED NEUTROPHILS (test code=SEG) % 39-69 LYMPHOCYTE (test code=LYMPH) % 25-55 MONOCYTE (test code=MON) % 0-10 EOSINOPHIL (test code=EOS) % 0.0-5.0 CABOT RINGS (test code=CAB) MORPHOLOGY COMMENT (test code=MOC) PLATELET ESTIMATE (test code=PLTEST) PLATELET MORPHOLOGY (test code=PLTMORPH) VITAMIN [id number] 17:08:00* Test Item Value Reference Range Comments VITAMIN B12 (test code=VITB12) 549 pg/mL 193-986 FOLIC [id number] 17:08:00* Test Item Value Reference Range Comments FOLIC ACID (test code=FOL) 3.9 ng/mL 3.10-17.50 THYROID PROFILE [id number] 17:08:00* Test Item Value Reference Range Comments T3 UPTAKE (test code=T3UP) 38.0 % 30.0-40.0 T4 (THYROXINE) (test code=T4) 9.8 ug/dL 4.5-13.9 T7 (FREE THYROXINE INDEX) (test code=T7) 3.72 FTI 1.3-5.1 THYROID STIMULATING HORMONE (test code=TSH) 1.070 uIU/mL 0.36-3.74 TSH REFERENCE RANGES: EUTHYROID: 0.35 - 4.3 mIU/mL HYPO : > 5.5 mIU/mL HYPER : < 0.35 mIU/mL METHYLMALONIC [id number] 17:08:00* Test Item Value Reference Range Comments METHYLMALONIC ACID (test code=METHM) 147 nmol/L 0-378 [id number] 17:08:00* Test Item Value Reference Range Comments HOMOCYSTEINE (test code=HOMOCY) 5.4 umol/L 0.0-15.0 Performed At: [facility] [address] [id number] Kyle L MD Ph:[phone] HCG SERUM [id number] 07:42:00* Test Item Value Reference Range Comments HCG SERUM BETA (test code=HCG) < 1.0 mIU/mL 0-3 INTERPRETATION:B-HCG LEVELS <5 SHOULD BE CONSIDERED "NEGATIVE." *WHEN BODERLINE RESULTS ARE ENCOUNTERED,PATIENT SAMPLESSHOULD BE REDRAWN 48 HOURS. 0-1 WEEKS AFTER CONCEPTION 5-50 MIU/ML1-2 WEEKS AFTER CONCEPTION 50-500 MIU/ML2-3 WEEKS AFTER CONCEPTION 100 -5,000 MIU/ML3-4 WEEKS AFTER CONCEPTION 500-10,000 MIU/ML4-5 WEEKS AFTER CONCEPTION 1000 -50,000 MIU/ML5-6 WEEKS AFTER CONCEPTION 10,000-100,000 MIU/ML6-8 WEEKS AFTER CONCEPTION 15,000- 200,000 MIU/ML2-3 MONTHS AFTER CONCEPTION 10,000-100,000 MIU/ML IS THIS PATIENT ? NOBASIC METABOLIC [id number] 07:41:00* Test Item Value Reference Range Comments SODIUM (test code=NA) 137 mmol/L 136-145 POTASSIUM (test code=K) 3.8 mmol/L 3.5-5.1 CHLORIDE (test code=CL) 105.0 mmol/L 98-107 CARBON DIOXIDE (test code=CO2) 26.0 mmol/L 21-32 ANION GAP (test code=GAP) 9.8 10-20 GLUCOSE (test code=GLU) 112 mg/dL 74-106 BLOOD UREA NITROGEN (test code=BUN) 4 mg/dL 7-18 GLOMERULAR FILTRATION RATE (test code=GFR) > 60 mL/min >=60 Estimated GFR by using Modified MDRD formula.Chronic kidney disease is defined as either kidney damageor GFR <60 mL/min/1.73 m2 for >3 months. CREATININE (test code=CREAT) 0.30 mg/dL 0.55-1.02 Note change in reference range due to change in reagent. BUN/CREATININE RATIO (test code=BUN/CREA) 13.3 10-20 CALCIUM (test code=CA) 8.1 mg/dL 8.5-10.1 CBC W/MANUAL [id number] 07:41:00* Test Item Value Reference Range Comments WHITE BLOOD CELL (test code=WBC) 26.0 K/mm3 4.5-12.5 RED BLOOD CELL (test code=RBC) 3.46 mill/mm3 3.7-5.2 HEMOGLOBIN (test code=HGB) 11.1 gram/dL 11.5-15.5 HEMATOCRIT (test code=HCT) 32.3 % 36.0-46.0 MEAN CELL VOLUME (test code=MCV) 93.4 fL 80-98 MEAN CELL HGB (test code=MCH) 32.1 picogram 27.0-33.0 MEAN CELL HGB CONCETRATION (test code=MCHC) 34.4 gram/dL 33.0-36.0 RED CELL DISTRIBUTION WIDTH (test code=RDW) 14.7 % 11.6-16.2 RED CELL DISTRIBUTION WIDTH SD (test code=RDW-SD) 50.5 fL 37.0-51.0 PLATELET COUNT (test code=PLT) 412 K/mm3 150-450 MEAN PLATELET VOLUME (test code=MPV) 8.6 fL 6.7-11.0 IMMATURE GRANULOCYTE % (test code=IG%) 4.7 % 0.0-5.0 NUCLEATED RBC % (test code=NRBC%) 0.0 % 0-0 NEUTROPHIL # (test code=NT#) 21.40 K/mm3 1.8-7.7 IMMATURE GRANULOCYTE # (test code=IG#) 1.22 x10 3/uL 0-0.03 LYMPHOCYTE # (test code=LY#) 1.20 K/mm3 1.0-5.0 MONOCYTE # (test code=MO#) 2.06 K/mm3 0-0.8 EOSINOPHIL # (test code=EO#) 0.01 K/mm3 0.0-0.5 BASOPHIL # (test code=BA#) 0.08 K/mm3 0.0-0.2 NUCLEATED RBC # (test code=NRBC#) 0.00 K/mm3 0.0-0.1 MANUAL DIFF REQUIRED (test code=MDIFF) YES STAIN ACCEPTABILITY (test code=STN ACCEPTABLE) STAIN ACCEPTABLE TOTAL CELLS COUNTED (test code=TCC) 115 #CELLS SEGMENTED NEUTROPHILS (test code=SEG) 81.7 % 39-69 BAND NEUTROPHIL (test code=BAND) 7.0 % 0-10 LYMPHOCYTE (test code=LYMPH) 6.1 % 25-55 REACTIVE LYMPH (test code=RELYMPH) 0 % MONOCYTE (test code=MON) 5.2 % 0-10 EOSINOPHIL (test code=EOS) 0 % 0.0-5.0 BASOPHIL (test code=BASO) 0 % 0-1.0 METAMYELOCYTE (test code=META) 0 % 0-0 MYELOCYTE (test code=MYELO) 0 % 0.0-0.0 PROMYELOCYTE (test code=PROM) 0 % 0-0 POIKILOCYTOSIS (test code=POIK) 1+ ANISOCYTOSIS (test code=ANISO) 1+ PLATELET ESTIMATE (test code=PLTEST) ADEQUATE PLATELET MORPHOLOGY (test code=PLTMORPH) NORMAL IMMATURE FORMS (test code=IMMAT) 0 % 0-0 - XR CHEST 1 [id number] 07:23:00 FAX: Javi Tejeda MD [phone] Thomas: B St: [facility] FAX: Alex Green Name: BLADIMIR FAROOQ [facility] : 1975 Age/S: 43/F Sonia Silva Unit #: [id number] Loc: V[address] [place] [address] Phys: Alex Green Acct: [id number] Dis Date: Status: ADM IN PHONE #: [phone] Exam Date: 12/30/2018 0649 FAX #: [phone] Reason: S/P THORACOTOMY EXAMS: CPT CODE: [id number] XR CHEST 1 V [id number] CLINICAL HISTORY: S/P THORACOTOMY; pneumonia; sepsis TECHNIQUE: AP chest x- ray COMPARISON: Previous day. IMPRESSION: No significant interval change. Left chest tubes in stable position without pneumothorax. Hazy opacification of the left hemithorax, suspect combination of atelectasis and layering pleural fluid. Right lung is clear. Normal heart size. at 0723 Reported and signed by: Kenia Pearce D.O. CC: Javi Tejeda MD; Alex Green Technologist: Sofiya Betancur(R); Erica Carmen RT(R) Trnscrd Date/Time/By: 12/30/2018 (0723) : By: [email or web address] Orig Print D/T: S: 12/30/2018 (0727) PAGE 1 Signed Report BASIC METABOLIC [id number] 07:21:00* Test Item Value Reference Range Comments SODIUM (test code=NA) 137 mmol/L 136-145 POTASSIUM (test code=K) 3.8 mmol/L 3.5-5.1 CHLORIDE (test code=CL) 105.0 mmol/L 98-107 CARBON DIOXIDE (test code=CO2) mmol/L 21-32 ANION GAP (test code=GAP) 10-20 GLUCOSE (test code=GLU) mg/dL 74-106 BLOOD UREA NITROGEN (test code=BUN) mg/dL 7-18 GLOMERULAR FILTRATION RATE (test code=GFR) mL/min >=60 CREATININE (test code=CREAT) mg/dL 0.55-1.02 BUN/CREATININE RATIO (test code=BUN/CREA) 10-20 CALCIUM (test code=CA) mg/dL 8.5-10.1 CBC W/MANUAL [id number] 07:15:00* Test Item Value Reference Range Comments WHITE BLOOD CELL (test code=WBC) 26.0 K/mm3 4.5-12.5 RED BLOOD CELL (test code=RBC) 3.46 mill/mm3 3.7-5.2 HEMOGLOBIN (test code=HGB) 11.1 gram/dL 11.5-15.5 HEMATOCRIT (test code=HCT) 32.3 % 36.0-46.0 MEAN CELL VOLUME (test code=MCV) 93.4 fL 80-98 MEAN CELL HGB (test code=MCH) 32.1 picogram 27.0-33.0 MEAN CELL HGB CONCETRATION (test code=MCHC) 34.4 gram/dL 33.0-36.0 RED CELL DISTRIBUTION WIDTH (test code=RDW) 14.7 % 11.6-16.2 RED CELL DISTRIBUTION WIDTH SD (test code=RDW-SD) 50.5 fL 37.0-51.0 PLATELET COUNT (test code=PLT) 412 K/mm3 150-450 MEAN PLATELET VOLUME (test code=MPV) 8.6 fL 6.7-11.0 IMMATURE GRANULOCYTE % (test code=IG%) 4.7 % 0.0-5.0 NUCLEATED RBC % (test code=NRBC%) 0.0 % 0-0 NEUTROPHIL # (test code=NT#) 21.40 K/mm3 1.8-7.7 IMMATURE GRANULOCYTE # (test code=IG#) 1.22 x10 3/uL 0-0.03 LYMPHOCYTE # (test code=LY#) 1.20 K/mm3 1.0-5.0 MONOCYTE # (test code=MO#) 2.06 K/mm3 0-0.8 EOSINOPHIL # (test code=EO#) 0.01 K/mm3 0.0-0.5 BASOPHIL # (test code=BA#) 0.08 K/mm3 0.0-0.2 NUCLEATED RBC # (test code=NRBC#) 0.00 K/mm3 0.0-0.1 MANUAL DIFF REQUIRED (test code=MDIFF) YES STAIN ACCEPTABILITY (test code=STN ACCEPTABLE) TOTAL CELLS COUNTED (test code=TCC) #CELLS SEGMENTED NEUTROPHILS (test code=SEG) % 39-69 LYMPHOCYTE (test code=LYMPH) % 25-55 MONOCYTE (test code=MON) % 0-10 EOSINOPHIL (test code=EOS) % 0.0-5.0 CABOT RINGS (test code=CAB) MORPHOLOGY COMMENT (test code=MOC) PLATELET ESTIMATE (test code=PLTEST) PLATELET MORPHOLOGY (test code=PLTMORPH) CBC W/MANUAL [id number] 07:15:00* Test Item Value Reference Range Comments WHITE BLOOD CELL (test code=WBC) 26.0 K/mm3 4.5-12.5 RED BLOOD CELL (test code=RBC) 3.46 mill/mm3 3.7-5.2 HEMOGLOBIN (test code=HGB) 11.1 gram/dL 11.5-15.5 HEMATOCRIT (test code=HCT) 32.3 % 36.0-46.0 MEAN CELL VOLUME (test code=MCV) 93.4 fL 80-98 MEAN CELL HGB (test code=MCH) 32.1 picogram 27.0-33.0 MEAN CELL HGB CONCETRATION (test code=MCHC) 34.4 gram/dL 33.0-36.0 RED CELL DISTRIBUTION WIDTH (test code=RDW) 14.7 % 11.6-16.2 RED CELL DISTRIBUTION WIDTH SD (test code=RDW-SD) 50.5 fL 37.0-51.0 PLATELET COUNT (test code=PLT) 412 K/mm3 150-450 MEAN PLATELET VOLUME (test code=MPV) 8.6 fL 6.7-11.0 IMMATURE GRANULOCYTE % (test code=IG%) 4.7 % 0.0-5.0 NUCLEATED RBC % (test code=NRBC%) 0.0 % 0-0 NEUTROPHIL # (test code=NT#) 21.40 K/mm3 1.8-7.7 IMMATURE GRANULOCYTE # (test code=IG#) 1.22 x10 3/uL 0-0.03 LYMPHOCYTE # (test code=LY#) 1.20 K/mm3 1.0-5.0 MONOCYTE # (test code=MO#) 2.06 K/mm3 0-0.8 EOSINOPHIL # (test code=EO#) 0.01 K/mm3 0.0-0.5 BASOPHIL # (test code=BA#) 0.08 K/mm3 0.0-0.2 NUCLEATED RBC # (test code=NRBC#) 0.00 K/mm3 0.0-0.1 MANUAL DIFF REQUIRED (test code=MDIFF) YES STAIN ACCEPTABILITY (test code=STN ACCEPTABLE) TOTAL CELLS COUNTED (test code=TCC) #CELLS SEGMENTED NEUTROPHILS (test code=SEG) % 39-69 LYMPHOCYTE (test code=LYMPH) % 25-55 MONOCYTE (test code=MON) % 0-10 EOSINOPHIL (test code=EOS) % 0.0-5.0 CABOT RINGS (test code=CAB) MORPHOLOGY COMMENT (test code=MOC) PLATELET ESTIMATE (test code=PLTEST) PLATELET MORPHOLOGY (test code=PLTMORPH) CBC W/MANUAL [id number] 07:15:00* Test Item Value Reference Range Comments WHITE BLOOD CELL (test code=WBC) 26.0 K/mm3 4.5-12.5 RED BLOOD CELL (test code=RBC) 3.46 mill/mm3 3.7-5.2 HEMOGLOBIN (test code=HGB) 11.1 gram/dL 11.5-15.5 HEMATOCRIT (test code=HCT) 32.3 % 36.0-46.0 MEAN CELL VOLUME (test code=MCV) 93.4 fL 80-98 MEAN CELL HGB (test code=MCH) 32.1 picogram 27.0-33.0 MEAN CELL HGB CONCETRATION (test code=MCHC) 34.4 gram/dL 33.0-36.0 RED CELL DISTRIBUTION WIDTH (test code=RDW) 14.7 % 11.6-16.2 RED CELL DISTRIBUTION WIDTH SD (test code=RDW-SD) 50.5 fL 37.0-51.0 PLATELET COUNT (test code=PLT) 412 K/mm3 150-450 MEAN PLATELET VOLUME (test code=MPV) 8.6 fL 6.7-11.0 IMMATURE GRANULOCYTE % (test code=IG%) 4.7 % 0.0-5.0 NUCLEATED RBC % (test code=NRBC%) 0.0 % 0-0 NEUTROPHIL # (test code=NT#) 21.40 K/mm3 1.8-7.7 IMMATURE GRANULOCYTE # (test code=IG#) 1.22 x10 3/uL 0-0.03 LYMPHOCYTE # (test code=LY#) 1.20 K/mm3 1.0-5.0 MONOCYTE # (test code=MO#) 2.06 K/mm3 0-0.8 EOSINOPHIL # (test code=EO#) 0.01 K/mm3 0.0-0.5 BASOPHIL # (test code=BA#) 0.08 K/mm3 0.0-0.2 NUCLEATED RBC # (test code=NRBC#) 0.00 K/mm3 0.0-0.1 MANUAL DIFF REQUIRED (test code=MDIFF) YES STAIN ACCEPTABILITY (test code=STN ACCEPTABLE) TOTAL CELLS COUNTED (test code=TCC) #CELLS SEGMENTED NEUTROPHILS (test code=SEG) % 39-69 LYMPHOCYTE (test code=LYMPH) % 25-55 MONOCYTE (test code=MON) % 0-10 EOSINOPHIL (test code=EOS) % 0.0-5.0 MORPHOLOGY COMMENT (test code=MOC) PLATELET ESTIMATE (test code=PLTEST) PLATELET MORPHOLOGY (test code=PLTMORPH) CBC W/MANUAL [id number] 07:15:00* Test Item Value Reference Range Comments WHITE BLOOD CELL (test code=WBC) 26.0 K/mm3 4.5-12.5 RED BLOOD CELL (test code=RBC) 3.46 mill/mm3 3.7-5.2 HEMOGLOBIN (test code=HGB) 11.1 gram/dL 11.5-15.5 HEMATOCRIT (test code=HCT) 32.3 % 36.0-46.0 MEAN CELL VOLUME (test code=MCV) 93.4 fL 80-98 MEAN CELL HGB (test code=MCH) 32.1 picogram 27.0-33.0 MEAN CELL HGB CONCETRATION (test code=MCHC) 34.4 gram/dL 33.0-36.0 RED CELL DISTRIBUTION WIDTH (test code=RDW) 14.7 % 11.6-16.2 RED CELL DISTRIBUTION WIDTH SD (test code=RDW-SD) 50.5 fL 37.0-51.0 PLATELET COUNT (test code=PLT) 412 K/mm3 150-450 MEAN PLATELET VOLUME (test code=MPV) 8.6 fL 6.7-11.0 IMMATURE GRANULOCYTE % (test code=IG%) 4.7 % 0.0-5.0 NUCLEATED RBC % (test code=NRBC%) 0.0 % 0-0 NEUTROPHIL # (test code=NT#) 21.40 K/mm3 1.8-7.7 IMMATURE GRANULOCYTE # (test code=IG#) 1.22 x10 3/uL 0-0.03 LYMPHOCYTE # (test code=LY#) 1.20 K/mm3 1.0-5.0 MONOCYTE # (test code=MO#) 2.06 K/mm3 0-0.8 EOSINOPHIL # (test code=EO#) 0.01 K/mm3 0.0-0.5 BASOPHIL # (test code=BA#) 0.08 K/mm3 0.0-0.2 NUCLEATED RBC # (test code=NRBC#) 0.00 K/mm3 0.0-0.1 MANUAL DIFF REQUIRED (test code=MDIFF) YES STAIN ACCEPTABILITY (test code=STN ACCEPTABLE) TOTAL CELLS COUNTED (test code=TCC) #CELLS SEGMENTED NEUTROPHILS (test code=SEG) % 39-69 LYMPHOCYTE (test code=LYMPH) % 25-55 MONOCYTE (test code=MON) % 0-10 MORPHOLOGY COMMENT (test code=MOC) PLATELET ESTIMATE (test code=PLTEST) PLATELET MORPHOLOGY (test code=PLTMORPH) CBC W/MANUAL [id number] 07:15:00* Test Item Value Reference Range Comments WHITE BLOOD CELL (test code=WBC) 26.0 K/mm3 4.5-12.5 RED BLOOD CELL (test code=RBC) 3.46 mill/mm3 3.7-5.2 HEMOGLOBIN (test code=HGB) 11.1 gram/dL 11.5-15.5 HEMATOCRIT (test code=HCT) 32.3 % 36.0-46.0 MEAN CELL VOLUME (test code=MCV) 93.4 fL 80-98 MEAN CELL HGB (test code=MCH) 32.1 picogram 27.0-33.0 MEAN CELL HGB CONCETRATION (test code=MCHC) 34.4 gram/dL 33.0-36.0 RED CELL DISTRIBUTION WIDTH (test code=RDW) 14.7 % 11.6-16.2 RED CELL DISTRIBUTION WIDTH SD (test code=RDW-SD) 50.5 fL 37.0-51.0 PLATELET COUNT (test code=PLT) 412 K/mm3 150-450 MEAN PLATELET VOLUME (test code=MPV) 8.6 fL 6.7-11.0 IMMATURE GRANULOCYTE % (test code=IG%) 4.7 % 0.0-5.0 NUCLEATED RBC % (test code=NRBC%) 0.0 % 0-0 NEUTROPHIL # (test code=NT#) 21.40 K/mm3 1.8-7.7 IMMATURE GRANULOCYTE # (test code=IG#) 1.22 x10 3/uL 0-0.03 LYMPHOCYTE # (test code=LY#) 1.20 K/mm3 1.0-5.0 MONOCYTE # (test code=MO#) 2.06 K/mm3 0-0.8 EOSINOPHIL # (test code=EO#) 0.01 K/mm3 0.0-0.5 BASOPHIL # (test code=BA#) 0.08 K/mm3 0.0-0.2 NUCLEATED RBC # (test code=NRBC#) 0.00 K/mm3 0.0-0.1 MANUAL DIFF REQUIRED (test code=MDIFF) YES STAIN ACCEPTABILITY (test code=STN ACCEPTABLE) TOTAL CELLS COUNTED (test code=TCC) #CELLS SEGMENTED NEUTROPHILS (test code=SEG) % 39-69 LYMPHOCYTE (test code=LYMPH) % 25-55 MONOCYTE (test code=MON) % 0-10 EOSINOPHIL (test code=EOS) % 0.0-5.0 CABOT RINGS (test code=CAB) MORPHOLOGY COMMENT (test code=MOC) PLATELET ESTIMATE (test code=PLTEST) PLATELET MORPHOLOGY (test code=PLTMORPH) - XR CHEST 1 [id number] 19:31:00 FAX: Javi Tejeda MD [phone] Thomas: B St: ADM FAX: Jese Pereyra MD [phone] Name: CAPRI,KARA [facility] : 1975 Age/S: 43/F S[place] Silva Unit #: [id number] Loc: [facility] [place] [address] Phys: Jese Granados MD Acct: [id number] Dis Date: Status: ADM IN PHONE #: [phone] Exam Date: 12/29/2018 192 FAX #: [phone] Reason: S/P THOROSCOPY DECORTICATION EXAMS: CPT CODE: [id number] XR CHEST 1 V [id number] REASON FOR EXAM: S/P THOROSCOPY DECORTICATION EXAM ORDER DATE: 12/29/2018 12:00 AM Ordering MCarlos A: Jese Granados MD PROCEDURE: - XR CHEST 1 V COMPARISON: 12/28/2018 FINDINGS: Portable AP frontal view of the chest obtained at 7:07 PM shows diffuse airspace opacity at the left lung. The heart size is within normal limits. Pulmonary vasculatures are unremarkable. IMPRESSION: Interval placement of 2 left surgical chest tubes. Small left pleural effusion and atelectasis at the left lung at 1931 Reported and signed by: Srinivas Cordero M.D. CC: Javi Tejeda MD; Jese Granados MD Technologist: LIVIA LUCERO; Jericho Ordoñez, RT(R Trnscrd Date/Time/By: 12/29/2018 (1930) : By: [email or web address] Orig Print D/T: S: 12/29/2018 (1933) PAGE 1 Signed Report CBC W/MANUAL [id number] 06:32:00* Test Item Value Reference Range Comments WHITE BLOOD CELL (test code=WBC) 12.7 K/mm3 4.5-12.5 RED BLOOD CELL (test code=RBC) 2.88 mill/mm3 3.7-5.2 HEMOGLOBIN (test code=HGB) 9.4 gram/dL 11.5-15.5 HEMATOCRIT (test code=HCT) 28.7 % 36.0-46.0 MEAN CELL VOLUME (test code=MCV) 99.7 fL 80-98 MEAN CELL HGB (test code=MCH) 32.6 picogram 27.0-33.0 MEAN CELL HGB CONCETRATION (test code=MCHC) 32.8 gram/dL 33.0-36.0 RED CELL DISTRIBUTION WIDTH (test code=RDW) 14.2 % 11.6-16.2 RED CELL DISTRIBUTION WIDTH SD (test code=RDW-SD) 51.8 fL 37.0-51.0 PLATELET COUNT (test code=PLT) 406 K/mm3 150-450 MEAN PLATELET VOLUME (test code=MPV) 8.5 fL 6.7-11.0 IMMATURE GRANULOCYTE % (test code=IG%) 8.1 % 0.0-5.0 "The appearance of immature granulocytes (myelocytes,pro-myelocytes, meta-myelocytes) in the peripheral blood ofnon- individuals can indicate a response toinfection, inflammation, or other stimulus to the bonemarrow" NUCLEATED RBC % (test code=NRBC%) 0.0 % 0-0 NEUTROPHIL # (test code=NT#) 8.46 K/mm3 1.8-7.7 IMMATURE GRANULOCYTE # (test code=IG#) 1.03 x10 3/uL 0-0.03 LYMPHOCYTE # (test code=LY#) 1.44 K/mm3 1.0-5.0 MONOCYTE # (test code=MO#) 1.44 K/mm3 0-0.8 EOSINOPHIL # (test code=EO#) 0.24 K/mm3 0.0-0.5 BASOPHIL # (test code=BA#) 0.06 K/mm3 0.0-0.2 NUCLEATED RBC # (test code=NRBC#) 0.00 K/mm3 0.0-0.1 MANUAL DIFF REQUIRED (test code=MDIFF) YES STAIN ACCEPTABILITY (test code=STN ACCEPTABLE) STAIN ACCEPTABLE TOTAL CELLS COUNTED (test code=TCC) 114 #CELLS SEGMENTED NEUTROPHILS (test code=SEG) 71.1 % 39-69 BAND NEUTROPHIL (test code=BAND) 0 % 0-10 LYMPHOCYTE (test code=LYMPH) 10.5 % 25-55 REACTIVE LYMPH (test code=RELYMPH) 0 % MONOCYTE (test code=MON) 11.4 % 0-10 EOSINOPHIL (test code=EOS) 3.5 % 0.0-5.0 BASOPHIL (test code=BASO) 0 % 0-1.0 METAMYELOCYTE (test code=META) 0 % 0-0 MYELOCYTE (test code=MYELO) 3.5 % 0.0-0.0 PROMYELOCYTE (test code=PROM) 0 % 0-0 TOXIC GRANULATION (test code=TOX) 1+ PLATELET ESTIMATE (test code=PLTEST) INCREASED PLATELET MORPHOLOGY (test code=PLTMORPH) NORMAL IMMATURE FORMS (test code=IMMAT) 0 % 0-0 PROTHROMBIN [id number] 05:51:00* Test Item Value Reference Range Comments PROTHROMBIN TIME PATIENT (test code=PTP) 12.1 seconds 9.0-14.0 INTERNATIONAL NORMAL RATIO (test code=INR) 1.0 0.8-1.2 The therapeutic range for oral anticoagulant therapy formost indications is an international normalized ratio (INR)of between 2.0 and 3.0. 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 NTHROMBOPLASTIN TIME [id number] 05:51:00* Test Item Value Reference Range Comments THROMBOPLASTIN TIME PARTIAL (test code=PTT) 31.8 seconds 25.0-36.5 IS PATIENT ON ANTICOAGULANTS? NCOMPREHENSIVE METABOLIC [id number] 05:50:00 * Test Item Value Reference Range Comments SODIUM (test code=NA) 139 mmol/L 136-145 POTASSIUM (test code=K) 3.7 mmol/L 3.5-5.1 CHLORIDE (test code=CL) 106.0 mmol/L 98-107 CARBON DIOXIDE (test code=CO2) 28.0 mmol/L 21-32 ANION GAP (test code=GAP) 8.7 10-20 GLUCOSE (test code=GLU) 90 mg/dL 74-106 BLOOD UREA NITROGEN (test code=BUN) 3 mg/dL 7-18 GLOMERULAR FILTRATION RATE (test code=GFR) > 60 mL/min >=60 Estimated GFR by using Modified MDRD formula.Chronic kidney disease is defined as either kidney damageor GFR <60 mL/min/1.73 m2 for >3 months. CREATININE (test code=CREAT) 0.40 mg/dL 0.55-1.02 Note change in reference range due to change in reagent. BUN/CREATININE RATIO (test code=BUN/CREA) 7.5 10-20 TOTAL PROTEIN (test code=PROT) 5.9 gram/dL 6.4-8.2 ALBUMIN (test code=ALB) 1.6 g/dL 3.4-5.0 GLOBULIN (test code=GLOB) 4.3 gram/dL 2.7-4.2 ALBUMIN/GLOBULIN RATIO (test code=A/G) 0.4 0.75-1.50 CALCIUM (test code=CA) 8.2 mg/dL 8.5-10.1 BILIRUBIN TOTAL (test code=BILT) 0.20 mg/dL 0.0-1.0 SGOT/AST (test code=AST) 31 IUnit/L 15-37 SGPT/ALT (test code=ALT) 39 IUnit/L 12-78 ALKALINE PHOSPHATASE TOTAL (test code=ALKP) 108 IUnit/L 45-117 Note change in reference range due to change in reagent. COMPREHENSIVE METABOLIC [id number] 05:41:00* Test Item Value Reference Range Comments SODIUM (test code=NA) 139 mmol/L 136-145 POTASSIUM (test code=K) 3.7 mmol/L 3.5-5.1 CHLORIDE (test code=CL) 106.0 mmol/L 98-107 CARBON DIOXIDE (test code=CO2) mmol/L 21-32 ANION GAP (test code=GAP) 10-20 GLUCOSE (test code=GLU) mg/dL 74-106 BLOOD UREA NITROGEN (test code=BUN) mg/dL 7-18 GLOMERULAR FILTRATION RATE (test code=GFR) mL/min >=60 CREATININE (test code=CREAT) mg/dL 0.55-1.02 BUN/CREATININE RATIO (test code=BUN/CREA) 10-20 TOTAL PROTEIN (test code=PROT) gram/dL 6.4-8.2 ALBUMIN (test code=ALB) g/dL 3.4-5.0 GLOBULIN (test code=GLOB) gram/dL 2.7-4.2 ALBUMIN/GLOBULIN RATIO (test code=A/G) 0.75-1.50 CALCIUM (test code=CA) mg/dL 8.5-10.1 BILIRUBIN TOTAL (test code=BILT) mg/dL 0.0-1.0 SGOT/AST (test code=AST) IUnit/L 15-37 SGPT/ALT (test code=ALT) IUnit/L 12-78 ALKALINE PHOSPHATASE TOTAL (test code=ALKP) IUnit/L 45-117 CBC W/MANUAL [id number] 05:19:00* Test Item Value Reference Range Comments WHITE BLOOD CELL (test code=WBC) 12.7 K/mm3 4.5-12.5 RED BLOOD CELL (test code=RBC) 2.88 mill/mm3 3.7-5.2 HEMOGLOBIN (test code=HGB) 9.4 gram/dL 11.5-15.5 HEMATOCRIT (test code=HCT) 28.7 % 36.0-46.0 MEAN CELL VOLUME (test code=MCV) 99.7 fL 80-98 MEAN CELL HGB (test code=MCH) 32.6 picogram 27.0-33.0 MEAN CELL HGB CONCETRATION (test code=MCHC) 32.8 gram/dL 33.0-36.0 RED CELL DISTRIBUTION WIDTH (test code=RDW) 14.2 % 11.6-16.2 RED CELL DISTRIBUTION WIDTH SD (test code=RDW-SD) 51.8 fL 37.0-51.0 PLATELET COUNT (test code=PLT) 406 K/mm3 150-450 MEAN PLATELET VOLUME (test code=MPV) 8.5 fL 6.7-11.0 IMMATURE GRANULOCYTE % (test code=IG%) 8.1 % 0.0-5.0 "The appearance of immature granulocytes (myelocytes,pro-myelocytes, meta-myelocytes) in the peripheral blood ofnon- individuals can indicate a response toinfection, inflammation, or other stimulus to the bonemarrow" NUCLEATED RBC % (test code=NRBC%) 0.0 % 0-0 NEUTROPHIL # (test code=NT#) 8.46 K/mm3 1.8-7.7 IMMATURE GRANULOCYTE # (test code=IG#) 1.03 x10 3/uL 0-0.03 LYMPHOCYTE # (test code=LY#) 1.44 K/mm3 1.0-5.0 MONOCYTE # (test code=MO#) 1.44 K/mm3 0-0.8 EOSINOPHIL # (test code=EO#) 0.24 K/mm3 0.0-0.5 BASOPHIL # (test code=BA#) 0.06 K/mm3 0.0-0.2 NUCLEATED RBC # (test code=NRBC#) 0.00 K/mm3 0.0-0.1 MANUAL DIFF REQUIRED (test code=MDIFF) YES STAIN ACCEPTABILITY (test code=STN ACCEPTABLE) TOTAL CELLS COUNTED (test code=TCC) #CELLS SEGMENTED NEUTROPHILS (test code=SEG) % 39-69 LYMPHOCYTE (test code=LYMPH) % 25-55 MONOCYTE (test code=MON) % 0-10 EOSINOPHIL (test code=EOS) % 0.0-5.0 CABOT RINGS (test code=CAB) MORPHOLOGY COMMENT (test code=MOC) PLATELET ESTIMATE (test code=PLTEST) PLATELET MORPHOLOGY (test code=PLTMORPH) CBC W/MANUAL [id number] 05:19:00* Test Item Value Reference Range Comments WHITE BLOOD CELL (test code=WBC) 12.7 K/mm3 4.5-12.5 RED BLOOD CELL (test code=RBC) 2.88 mill/mm3 3.7-5.2 HEMOGLOBIN (test code=HGB) 9.4 gram/dL 11.5-15.5 HEMATOCRIT (test code=HCT) 28.7 % 36.0-46.0 MEAN CELL VOLUME (test code=MCV) 99.7 fL 80-98 MEAN CELL HGB (test code=MCH) 32.6 picogram 27.0-33.0 MEAN CELL HGB CONCETRATION (test code=MCHC) 32.8 gram/dL 33.0-36.0 RED CELL DISTRIBUTION WIDTH (test code=RDW) 14.2 % 11.6-16.2 RED CELL DISTRIBUTION WIDTH SD (test code=RDW-SD) 51.8 fL 37.0-51.0 PLATELET COUNT (test code=PLT) 406 K/mm3 150-450 MEAN PLATELET VOLUME (test code=MPV) 8.5 fL 6.7-11.0 IMMATURE GRANULOCYTE % (test code=IG%) 8.1 % 0.0-5.0 "The appearance of immature granulocytes (myelocytes,pro-myelocytes, meta-myelocytes) in the peripheral blood ofnon- individuals can indicate a response toinfection, inflammation, or other stimulus to the bonemarrow" NUCLEATED RBC % (test code=NRBC%) 0.0 % 0-0 NEUTROPHIL # (test code=NT#) 8.46 K/mm3 1.8-7.7 IMMATURE GRANULOCYTE # (test code=IG#) 1.03 x10 3/uL 0-0.03 LYMPHOCYTE # (test code=LY#) 1.44 K/mm3 1.0-5.0 MONOCYTE # (test code=MO#) 1.44 K/mm3 0-0.8 EOSINOPHIL # (test code=EO#) 0.24 K/mm3 0.0-0.5 BASOPHIL # (test code=BA#) 0.06 K/mm3 0.0-0.2 NUCLEATED RBC # (test code=NRBC#) 0.00 K/mm3 0.0-0.1 MANUAL DIFF REQUIRED (test code=MDIFF) YES STAIN ACCEPTABILITY (test code=STN ACCEPTABLE) TOTAL CELLS COUNTED (test code=TCC) #CELLS SEGMENTED NEUTROPHILS (test code=SEG) % 39-69 LYMPHOCYTE (test code=LYMPH) % 25-55 MONOCYTE (test code=MON) % 0-10 EOSINOPHIL (test code=EOS) % 0.0-5.0 CABOT RINGS (test code=CAB) MORPHOLOGY COMMENT (test code=MOC) PLATELET ESTIMATE (test code=PLTEST) PLATELET MORPHOLOGY (test code=PLTMORPH) CBC W/MANUAL [id number] 05:19:00* Test Item Value Reference Range Comments WHITE BLOOD CELL (test code=WBC) 12.7 K/mm3 4.5-12.5 RED BLOOD CELL (test code=RBC) 2.88 mill/mm3 3.7-5.2 HEMOGLOBIN (test code=HGB) 9.4 gram/dL 11.5-15.5 HEMATOCRIT (test code=HCT) 28.7 % 36.0-46.0 MEAN CELL VOLUME (test code=MCV) 99.7 fL 80-98 MEAN CELL HGB (test code=MCH) 32.6 picogram 27.0-33.0 MEAN CELL HGB CONCETRATION (test code=MCHC) 32.8 gram/dL 33.0-36.0 RED CELL DISTRIBUTION WIDTH (test code=RDW) 14.2 % 11.6-16.2 RED CELL DISTRIBUTION WIDTH SD (test code=RDW-SD) 51.8 fL 37.0-51.0 PLATELET COUNT (test code=PLT) 406 K/mm3 150-450 MEAN PLATELET VOLUME (test code=MPV) 8.5 fL 6.7-11.0 IMMATURE GRANULOCYTE % (test code=IG%) 8.1 % 0.0-5.0 "The appearance of immature granulocytes (myelocytes,pro-myelocytes, meta-myelocytes) in the peripheral blood ofnon- individuals can indicate a response toinfection, inflammation, or other stimulus to the bonemarrow" NUCLEATED RBC % (test code=NRBC%) 0.0 % 0-0 NEUTROPHIL # (test code=NT#) 8.46 K/mm3 1.8-7.7 IMMATURE GRANULOCYTE # (test code=IG#) 1.03 x10 3/uL 0-0.03 LYMPHOCYTE # (test code=LY#) 1.44 K/mm3 1.0-5.0 MONOCYTE # (test code=MO#) 1.44 K/mm3 0-0.8 EOSINOPHIL # (test code=EO#) 0.24 K/mm3 0.0-0.5 BASOPHIL # (test code=BA#) 0.06 K/mm3 0.0-0.2 NUCLEATED RBC # (test code=NRBC#) 0.00 K/mm3 0.0-0.1 MANUAL DIFF REQUIRED (test code=MDIFF) YES STAIN ACCEPTABILITY (test code=STN ACCEPTABLE) TOTAL CELLS COUNTED (test code=TCC) #CELLS SEGMENTED NEUTROPHILS (test code=SEG) % 39-69 LYMPHOCYTE (test code=LYMPH) % 25-55 MONOCYTE (test code=MON) % 0-10 EOSINOPHIL (test code=EOS) % 0.0-5.0 MORPHOLOGY COMMENT (test code=MOC) PLATELET ESTIMATE (test code=PLTEST) PLATELET MORPHOLOGY (test code=PLTMORPH) CBC W/MANUAL [id number] 05:19:00* Test Item Value Reference Range Comments WHITE BLOOD CELL (test code=WBC) 12.7 K/mm3 4.5-12.5 RED BLOOD CELL (test code=RBC) 2.88 mill/mm3 3.7-5.2 HEMOGLOBIN (test code=HGB) 9.4 gram/dL 11.5-15.5 HEMATOCRIT (test code=HCT) 28.7 % 36.0-46.0 MEAN CELL VOLUME (test code=MCV) 99.7 fL 80-98 MEAN CELL HGB (test code=MCH) 32.6 picogram 27.0-33.0 MEAN CELL HGB CONCETRATION (test code=MCHC) 32.8 gram/dL 33.0-36.0 RED CELL DISTRIBUTION WIDTH (test code=RDW) 14.2 % 11.6-16.2 RED CELL DISTRIBUTION WIDTH SD (test code=RDW-SD) 51.8 fL 37.0-51.0 PLATELET COUNT (test code=PLT) 406 K/mm3 150-450 MEAN PLATELET VOLUME (test code=MPV) 8.5 fL 6.7-11.0 IMMATURE GRANULOCYTE % (test code=IG%) 8.1 % 0.0-5.0 "The appearance of immature granulocytes (myelocytes,pro-myelocytes, meta-myelocytes) in the peripheral blood ofnon- individuals can indicate a response toinfection, inflammation, or other stimulus to the bonemarrow" NUCLEATED RBC % (test code=NRBC%) 0.0 % 0-0 NEUTROPHIL # (test code=NT#) 8.46 K/mm3 1.8-7.7 IMMATURE GRANULOCYTE # (test code=IG#) 1.03 x10 3/uL 0-0.03 LYMPHOCYTE # (test code=LY#) 1.44 K/mm3 1.0-5.0 MONOCYTE # (test code=MO#) 1.44 K/mm3 0-0.8 EOSINOPHIL # (test code=EO#) 0.24 K/mm3 0.0-0.5 BASOPHIL # (test code=BA#) 0.06 K/mm3 0.0-0.2 NUCLEATED RBC # (test code=NRBC#) 0.00 K/mm3 0.0-0.1 MANUAL DIFF REQUIRED (test code=MDIFF) YES STAIN ACCEPTABILITY (test code=STN ACCEPTABLE) TOTAL CELLS COUNTED (test code=TCC) #CELLS SEGMENTED NEUTROPHILS (test code=SEG) % 39-69 LYMPHOCYTE (test code=LYMPH) % 25-55 MONOCYTE (test code=MON) % 0-10 MORPHOLOGY COMMENT (test code=MOC) PLATELET ESTIMATE (test code=PLTEST) PLATELET MORPHOLOGY (test code=PLTMORPH) CBC W/MANUAL [id number] 05:19:00* Test Item Value Reference Range Comments WHITE BLOOD CELL (test code=WBC) 12.7 K/mm3 4.5-12.5 RED BLOOD CELL (test code=RBC) 2.88 mill/mm3 3.7-5.2 HEMOGLOBIN (test code=HGB) 9.4 gram/dL 11.5-15.5 HEMATOCRIT (test code=HCT) 28.7 % 36.0-46.0 MEAN CELL VOLUME (test code=MCV) 99.7 fL 80-98 MEAN CELL HGB (test code=MCH) 32.6 picogram 27.0-33.0 MEAN CELL HGB CONCETRATION (test code=MCHC) 32.8 gram/dL 33.0-36.0 RED CELL DISTRIBUTION WIDTH (test code=RDW) 14.2 % 11.6-16.2 RED CELL DISTRIBUTION WIDTH SD (test code=RDW-SD) 51.8 fL 37.0-51.0 PLATELET COUNT (test code=PLT) 406 K/mm3 150-450 MEAN PLATELET VOLUME (test code=MPV) 8.5 fL 6.7-11.0 IMMATURE GRANULOCYTE % (test code=IG%) 8.1 % 0.0-5.0 "The appearance of immature granulocytes (myelocytes,pro-myelocytes, meta-myelocytes) in the peripheral blood ofnon- individuals can indicate a response toinfection, inflammation, or other stimulus to the bonemarrow" NUCLEATED RBC % (test code=NRBC%) 0.0 % 0-0 NEUTROPHIL # (test code=NT#) 8.46 K/mm3 1.8-7.7 IMMATURE GRANULOCYTE # (test code=IG#) 1.03 x10 3/uL 0-0.03 LYMPHOCYTE # (test code=LY#) 1.44 K/mm3 1.0-5.0 MONOCYTE # (test code=MO#) 1.44 K/mm3 0-0.8 EOSINOPHIL # (test code=EO#) 0.24 K/mm3 0.0-0.5 BASOPHIL # (test code=BA#) 0.06 K/mm3 0.0-0.2 NUCLEATED RBC # (test code=NRBC#) 0.00 K/mm3 0.0-0.1 MANUAL DIFF REQUIRED (test code=MDIFF) YES STAIN ACCEPTABILITY (test code=STN ACCEPTABLE) TOTAL CELLS COUNTED (test code=TCC) #CELLS SEGMENTED NEUTROPHILS (test code=SEG) % 39-69 LYMPHOCYTE (test code=LYMPH) % 25-55 MONOCYTE (test code=MON) % 0-10 EOSINOPHIL (test code=EOS) % 0.0-5.0 CABOT RINGS (test code=CAB) MORPHOLOGY COMMENT (test code=MOC) PLATELET ESTIMATE (test code=PLTEST) PLATELET MORPHOLOGY (test code=PLTMORPH) BASIC METABOLIC [id number] 20:34:00* Test Item Value Reference Range Comments SODIUM (test code=NA) 139 mmol/L 136-145 POTASSIUM (test code=K) 3.5 mmol/L 3.5-5.1 CHLORIDE (test code=CL) 106.0 mmol/L 98-107 CARBON DIOXIDE (test code=CO2) 28.0 mmol/L 21-32 ANION GAP (test code=GAP) 8.5 10-20 GLUCOSE (test code=GLU) 90 mg/dL 74-106 BLOOD UREA NITROGEN (test code=BUN) 3 mg/dL 7-18 GLOMERULAR FILTRATION RATE (test code=GFR) > 60 mL/min >=60 Estimated GFR by using Modified MDRD formula.Chronic kidney disease is defined as either kidney damageor GFR <60 mL/min/1.73 m2 for >3 months. CREATININE (test code=CREAT) 0.40 mg/dL 0.55-1.02 Note change in reference range due to change in reagent. BUN/CREATININE RATIO (test code=BUN/CREA) 7.5 10-20 CALCIUM (test code=CA) 7.9 mg/dL 8.5-10.1 BASIC METABOLIC [id number] 20:31:00* Test Item Value Reference Range Comments SODIUM (test code=NA) 139 mmol/L 136-145 POTASSIUM (test code=K) 3.5 mmol/L 3.5-5.1 CHLORIDE (test code=CL) 106.0 mmol/L 98-107 CARBON DIOXIDE (test code=CO2) mmol/L 21-32 ANION GAP (test code=GAP) 10-20 GLUCOSE (test code=GLU) mg/dL 74-106 BLOOD UREA NITROGEN (test code=BUN) mg/dL 7-18 GLOMERULAR FILTRATION RATE (test code=GFR) mL/min >=60 CREATININE (test code=CREAT) mg/dL 0.55-1.02 BUN/CREATININE RATIO (test code=BUN/CREA) 10-20 CALCIUM (test code=CA) mg/dL 8.5-10.1 - XR CHEST 2 [id number] 10:58:00 FAX: Meagan Cooper MD [phone] [facility]: St: ADM FAX: Jimmie Watters MD [phone] Name: BLADIMIR FAROOQ [facility] : 1975 Age/S: 43/F [address] [facility] Unit #: [id number] Loc: [id number].3037 [place] [address] Phys: Jimmie Monreal MD Acct: [id number] Dis Date: Status: ADM IN PHONE #: [phone] Exam Date: 12/28/2018 1047 FAX #: [phone] Reason: f/u EXAMS: CPT CODE: [id number] XR CHEST 2 V 91438 HISTORY: Sepsis and pneumonia. COMPARISON: X-ray from December 26, 2018 and from December 22, 2018. AP and lateral view of the chest: Large loculated pleural fluid collection within the right upper lobe as well as partially loculated collection in the left base. These are essentially unchanged. Patchy left basal infiltrate with subsegmental atelectasis. Cardiac silhouette is obscured but does not appear enlarged. Right lung is clear. IMPRESSION: Large loculated left upper lobe fluid collection as well within the left base which appears partially loculated. Patchy left basal infiltrate as well. These findings are essentially unchanged. at 1058 Reported and s igned by: Jh Oakes M.D. CC: Meagan Betancourt MD; Jimmie Monreal MD Technologist: Erica Carmen RT(R); STUDENT TECHNO LOGIST Trnscrd Date/Time/By: 12/28/2018 (9675) : By: [email or web address] Orig Print D/T: S: 12/28/2018 (3985) PAGE 1 Signed Report BASIC METABOLIC PANEL 2018-12-28 06:07:00* Test Item Value Reference Range Comments SODIUM (test code=NA) 139 mmol/L 136-145 POTASSIUM (test code=K) 2.7 mmol/L 3.5-5.1 Results called to [id number] by [email or web address] 12/28/18 0606Critical results verified and read back by Nurse? Y CHLORIDE (test code=CL) 105.0 mmol/L 98-107 CARBON DIOXIDE (test code=CO2) 27.0 mmol/L 21-32 ANION GAP (test code=GAP) 9.7 10-20 GLUCOSE (test code=GLU) 111 mg/dL 74-106 BLOOD UREA NITROGEN (test code=BUN) 3 mg/dL 7-18 GLOMERULAR FILTRATION RATE (test code=GFR) > 60 mL/min >=60 Estimated GFR by using Modified MDRD formula.Chronic kidney disease is defined as either kidney damageor GFR <60 mL/min/1.73 m2 for >3 months. CREATININE (test code=CREAT) 0.30 mg/dL 0.55-1.02 Note change in reference range due to change in reagent. BUN/CREATININE RATIO (test code=BUN/CREA) 10.0 10-20 CALCIUM (test code=CA) 7.8 mg/dL 8.5-10.1 [id number] 06:07:00* Test Item Value Reference Range Comments MAGNESIUM (test code=MAG) 2.1 mg/dL 1.8-2.4 CBC W/MANUAL [id number] 05:43:00* Test Item Value Reference Range Comments WHITE BLOOD CELL (test code=WBC) 12.4 K/mm3 4.5-12.5 RED BLOOD CELL (test code=RBC) 3.01 mill/mm3 3.7-5.2 HEMOGLOBIN (test code=HGB) 9.8 gram/dL 11.5-15.5 HEMATOCRIT (test code=HCT) 29.3 % 36.0-46.0 MEAN CELL VOLUME (test code=MCV) 97.3 fL 80-98 MEAN CELL HGB (test code=MCH) 32.6 picogram 27.0-33.0 MEAN CELL HGB CONCETRATION (test code=MCHC) 33.4 gram/dL 33.0-36.0 RED CELL DISTRIBUTION WIDTH (test code=RDW) 13.8 % 11.6-16.2 RED CELL DISTRIBUTION WIDTH SD (test code=RDW-SD) 49.7 fL 37.0-51.0 PLATELET COUNT (test code=PLT) 360 K/mm3 150-450 RESULT VERIFIED BY REPEAT ANALYSIS MEAN PLATELET VOLUME (test code=MPV) 8.5 fL 6.7-11.0 IMMATURE GRANULOCYTE % (test code=IG%) 7.3 % 0.0-5.0 "The appearance of immature granulocytes (myelocytes,pro-myelocytes, meta-myelocytes) in the peripheral blood ofnon- individuals can indicate a response toinfection, inflammation, or other stimulus to the bonemarrow" NUCLEATED RBC % (test code=NRBC%) 0.0 % 0-0 NEUTROPHIL # (test code=NT#) 8.44 K/mm3 1.8-7.7 IMMATURE GRANULOCYTE # (test code=IG#) 0.90 x10 3/uL 0-0.03 LYMPHOCYTE # (test code=LY#) 1.39 K/mm3 1.0-5.0 MONOCYTE # (test code=MO#) 1.42 K/mm3 0-0.8 EOSINOPHIL # (test code=EO#) 0.17 K/mm3 0.0-0.5 BASOPHIL # (test code=BA#) 0.07 K/mm3 0.0-0.2 NUCLEATED RBC # (test code=NRBC#) 0.00 K/mm3 0.0-0.1 MANUAL DIFF REQUIRED (test code=MDIFF) YES STAIN ACCEPTABILITY (test code=STN ACCEPTABLE) STAIN ACCEPTABLE TOTAL CELLS COUNTED (test code=TCC) 115 #CELLS SEGMENTED NEUTROPHILS (test code=SEG) 83.5 % 39-69 BAND NEUTROPHIL (test code=BAND) 0 % 0-10 LYMPHOCYTE (test code=LYMPH) 9.5 % 25-55 REACTIVE LYMPH (test code=RELYMPH) 0 % MONOCYTE (test code=MON) 3.5 % 0-10 EOSINOPHIL (test code=EOS) 0.9 % 0.0-5.0 BASOPHIL (test code=BASO) 0.9 % 0-1.0 METAMYELOCYTE (test code=META) 0 % 0-0 MYELOCYTE (test code=MYELO) 1.7 % 0.0-0.0 PROMYELOCYTE (test code=PROM) 0 % 0-0 POLYCHROMASIA (test code=POLC) 1+ HYPOCHROMIA (test code=HYPO) 1+ TOXIC GRANULATION (test code=TOX) 1+ PLATELET ESTIMATE (test code=PLTEST) ADEQUATE PLATELET MORPHOLOGY (test code=PLTMORPH) NORMAL IMMATURE FORMS (test code=IMMAT) 0 % 0-0 CBC W/MANUAL [id number] 05:20:00* Test Item Value Reference Range Comments WHITE BLOOD CELL (test code=WBC) 12.4 K/mm3 4.5-12.5 RED BLOOD CELL (test code=RBC) 3.01 mill/mm3 3.7-5.2 HEMOGLOBIN (test code=HGB) 9.8 gram/dL 11.5-15.5 HEMATOCRIT (test code=HCT) 29.3 % 36.0-46.0 MEAN CELL VOLUME (test code=MCV) 97.3 fL 80-98 MEAN CELL HGB (test code=MCH) 32.6 picogram 27.0-33.0 MEAN CELL HGB CONCETRATION (test code=MCHC) 33.4 gram/dL 33.0-36.0 RED CELL DISTRIBUTION WIDTH (test code=RDW) 13.8 % 11.6-16.2 RED CELL DISTRIBUTION WIDTH SD (test code=RDW-SD) 49.7 fL 37.0-51.0 PLATELET COUNT (test code=PLT) 360 K/mm3 150-450 RESULT VERIFIED BY REPEAT ANALYSIS MEAN PLATELET VOLUME (test code=MPV) 8.5 fL 6.7-11.0 IMMATURE GRANULOCYTE % (test code=IG%) 7.3 % 0.0-5.0 "The appearance of immature granulocytes (myelocytes,pro-myelocytes, meta-myelocytes) in the peripheral blood ofnon- individuals can indicate a response toinfection, inflammation, or other stimulus to the bonemarrow" NUCLEATED RBC % (test code=NRBC%) 0.0 % 0-0 NEUTROPHIL # (test code=NT#) 8.44 K/mm3 1.8-7.7 IMMATURE GRANULOCYTE # (test code=IG#) 0.90 x10 3/uL 0-0.03 LYMPHOCYTE # (test code=LY#) 1.39 K/mm3 1.0-5.0 MONOCYTE # (test code=MO#) 1.42 K/mm3 0-0.8 EOSINOPHIL # (test code=EO#) 0.17 K/mm3 0.0-0.5 BASOPHIL # (test code=BA#) 0.07 K/mm3 0.0-0.2 NUCLEATED RBC # (test code=NRBC#) 0.00 K/mm3 0.0-0.1 MANUAL DIFF REQUIRED (test code=MDIFF) YES STAIN ACCEPTABILITY (test code=STN ACCEPTABLE) TOTAL CELLS COUNTED (test code=TCC) #CELLS SEGMENTED NEUTROPHILS (test code=SEG) % 39-69 LYMPHOCYTE (test code=LYMPH) % 25-55 MONOCYTE (test code=MON) % 0-10 EOSINOPHIL (test code=EOS) % 0.0-5.0 CABOT RINGS (test code=CAB) MORPHOLOGY COMMENT (test code=MOC) PLATELET ESTIMATE (test code=PLTEST) PLATELET MORPHOLOGY (test code=PLTMORPH) CBC W/MANUAL [id number] 05:20:00* Test Item Value Reference Range Comments WHITE BLOOD CELL (test code=WBC) 12.4 K/mm3 4.5-12.5 RED BLOOD CELL (test code=RBC) 3.01 mill/mm3 3.7-5.2 HEMOGLOBIN (test code=HGB) 9.8 gram/dL 11.5-15.5 HEMATOCRIT (test code=HCT) 29.3 % 36.0-46.0 MEAN CELL VOLUME (test code=MCV) 97.3 fL 80-98 MEAN CELL HGB (test code=MCH) 32.6 picogram 27.0-33.0 MEAN CELL HGB CONCETRATION (test code=MCHC) 33.4 gram/dL 33.0-36.0 RED CELL DISTRIBUTION WIDTH (test code=RDW) 13.8 % 11.6-16.2 RED CELL DISTRIBUTION WIDTH SD (test code=RDW-SD) 49.7 fL 37.0-51.0 PLATELET COUNT (test code=PLT) 360 K/mm3 150-450 RESULT VERIFIED BY REPEAT ANALYSIS MEAN PLATELET VOLUME (test code=MPV) 8.5 fL 6.7-11.0 IMMATURE GRANULOCYTE % (test code=IG%) 7.3 % 0.0-5.0 "The appearance of immature granulocytes (myelocytes,pro-myelocytes, meta-myelocytes) in the peripheral blood ofnon- individuals can indicate a response toinfection, inflammation, or other stimulus to the bonemarrow" NUCLEATED RBC % (test code=NRBC%) 0.0 % 0-0 NEUTROPHIL # (test code=NT#) 8.44 K/mm3 1.8-7.7 IMMATURE GRANULOCYTE # (test code=IG#) 0.90 x10 3/uL 0-0.03 LYMPHOCYTE # (test code=LY#) 1.39 K/mm3 1.0-5.0 MONOCYTE # (test code=MO#) 1.42 K/mm3 0-0.8 EOSINOPHIL # (test code=EO#) 0.17 K/mm3 0.0-0.5 BASOPHIL # (test code=BA#) 0.07 K/mm3 0.0-0.2 NUCLEATED RBC # (test code=NRBC#) 0.00 K/mm3 0.0-0.1 MANUAL DIFF REQUIRED (test code=MDIFF) YES STAIN ACCEPTABILITY (test code=STN ACCEPTABLE) TOTAL CELLS COUNTED (test code=TCC) #CELLS SEGMENTED NEUTROPHILS (test code=SEG) % 39-69 LYMPHOCYTE (test code=LYMPH) % 25-55 MONOCYTE (test code=MON) % 0-10 EOSINOPHIL (test code=EOS) % 0.0-5.0 CABOT RINGS (test code=CAB) MORPHOLOGY COMMENT (test code=MOC) PLATELET ESTIMATE (test code=PLTEST) PLATELET MORPHOLOGY (test code=PLTMORPH) CBC W/MANUAL [id number] 05:20:00* Test Item Value Reference Range Comments WHITE BLOOD CELL (test code=WBC) 12.4 K/mm3 4.5-12.5 RED BLOOD CELL (test code=RBC) 3.01 mill/mm3 3.7-5.2 HEMOGLOBIN (test code=HGB) 9.8 gram/dL 11.5-15.5 HEMATOCRIT (test code=HCT) 29.3 % 36.0-46.0 MEAN CELL VOLUME (test code=MCV) 97.3 fL 80-98 MEAN CELL HGB (test code=MCH) 32.6 picogram 27.0-33.0 MEAN CELL HGB CONCETRATION (test code=MCHC) 33.4 gram/dL 33.0-36.0 RED CELL DISTRIBUTION WIDTH (test code=RDW) 13.8 % 11.6-16.2 RED CELL DISTRIBUTION WIDTH SD (test code=RDW-SD) 49.7 fL 37.0-51.0 PLATELET COUNT (test code=PLT) 360 K/mm3 150-450 RESULT VERIFIED BY REPEAT ANALYSIS MEAN PLATELET VOLUME (test code=MPV) 8.5 fL 6.7-11.0 IMMATURE GRANULOCYTE % (test code=IG%) 7.3 % 0.0-5.0 "The appearance of immature granulocytes (myelocytes,pro-myelocytes, meta-myelocytes) in the peripheral blood ofnon- individuals can indicate a response toinfection, inflammation, or other stimulus to the bonemarrow" NUCLEATED RBC % (test code=NRBC%) 0.0 % 0-0 NEUTROPHIL # (test code=NT#) 8.44 K/mm3 1.8-7.7 IMMATURE GRANULOCYTE # (test code=IG#) 0.90 x10 3/uL 0-0.03 LYMPHOCYTE # (test code=LY#) 1.39 K/mm3 1.0-5.0 MONOCYTE # (test code=MO#) 1.42 K/mm3 0-0.8 EOSINOPHIL # (test code=EO#) 0.17 K/mm3 0.0-0.5 BASOPHIL # (test code=BA#) 0.07 K/mm3 0.0-0.2 NUCLEATED RBC # (test code=NRBC#) 0.00 K/mm3 0.0-0.1 MANUAL DIFF REQUIRED (test code=MDIFF) YES STAIN ACCEPTABILITY (test code=STN ACCEPTABLE) TOTAL CELLS COUNTED (test code=TCC) #CELLS SEGMENTED NEUTROPHILS (test code=SEG) % 39-69 LYMPHOCYTE (test code=LYMPH) % 25-55 MONOCYTE (test code=MON) % 0-10 EOSINOPHIL (test code=EOS) % 0.0-5.0 MORPHOLOGY COMMENT (test code=MOC) PLATELET ESTIMATE (test code=PLTEST) PLATELET MORPHOLOGY (test code=PLTMORPH) CBC W/MANUAL [id number] 05:20:00* Test Item Value Reference Range Comments WHITE BLOOD CELL (test code=WBC) 12.4 K/mm3 4.5-12.5 RED BLOOD CELL (test code=RBC) 3.01 mill/mm3 3.7-5.2 HEMOGLOBIN (test code=HGB) 9.8 gram/dL 11.5-15.5 HEMATOCRIT (test code=HCT) 29.3 % 36.0-46.0 MEAN CELL VOLUME (test code=MCV) 97.3 fL 80-98 MEAN CELL HGB (test code=MCH) 32.6 picogram 27.0-33.0 MEAN CELL HGB CONCETRATION (test code=MCHC) 33.4 gram/dL 33.0-36.0 RED CELL DISTRIBUTION WIDTH (test code=RDW) 13.8 % 11.6-16.2 RED CELL DISTRIBUTION WIDTH SD (test code=RDW-SD) 49.7 fL 37.0-51.0 PLATELET COUNT (test code=PLT) 360 K/mm3 150-450 RESULT VERIFIED BY REPEAT ANALYSIS MEAN PLATELET VOLUME (test code=MPV) 8.5 fL 6.7-11.0 IMMATURE GRANULOCYTE % (test code=IG%) 7.3 % 0.0-5.0 "The appearance of immature granulocytes (myelocytes,pro-myelocytes, meta-myelocytes) in the peripheral blood ofnon- individuals can indicate a response toinfection, inflammation, or other stimulus to the bonemarrow" NUCLEATED RBC % (test code=NRBC%) 0.0 % 0-0 NEUTROPHIL # (test code=NT#) 8.44 K/mm3 1.8-7.7 IMMATURE GRANULOCYTE # (test code=IG#) 0.90 x10 3/uL 0-0.03 LYMPHOCYTE # (test code=LY#) 1.39 K/mm3 1.0-5.0 MONOCYTE # (test code=MO#) 1.42 K/mm3 0-0.8 EOSINOPHIL # (test code=EO#) 0.17 K/mm3 0.0-0.5 BASOPHIL # (test code=BA#) 0.07 K/mm3 0.0-0.2 NUCLEATED RBC # (test code=NRBC#) 0.00 K/mm3 0.0-0.1 MANUAL DIFF REQUIRED (test code=MDIFF) YES STAIN ACCEPTABILITY (test code=STN ACCEPTABLE) TOTAL CELLS COUNTED (test code=TCC) #CELLS SEGMENTED NEUTROPHILS (test code=SEG) % 39-69 LYMPHOCYTE (test code=LYMPH) % 25-55 MONOCYTE (test code=MON) % 0-10 MORPHOLOGY COMMENT (test code=MOC) PLATELET ESTIMATE (test code=PLTEST) PLATELET MORPHOLOGY (test code=PLTMORPH) CBC W/MANUAL [id number] 05:20:00* Test Item Value Reference Range Comments WHITE BLOOD CELL (test code=WBC) 12.4 K/mm3 4.5-12.5 RED BLOOD CELL (test code=RBC) 3.01 mill/mm3 3.7-5.2 HEMOGLOBIN (test code=HGB) 9.8 gram/dL 11.5-15.5 HEMATOCRIT (test code=HCT) 29.3 % 36.0-46.0 MEAN CELL VOLUME (test code=MCV) 97.3 fL 80-98 MEAN CELL HGB (test code=MCH) 32.6 picogram 27.0-33.0 MEAN CELL HGB CONCETRATION (test code=MCHC) 33.4 gram/dL 33.0-36.0 RED CELL DISTRIBUTION WIDTH (test code=RDW) 13.8 % 11.6-16.2 RED CELL DISTRIBUTION WIDTH SD (test code=RDW-SD) 49.7 fL 37.0-51.0 PLATELET COUNT (test code=PLT) 360 K/mm3 150-450 RESULT VERIFIED BY REPEAT ANALYSIS MEAN PLATELET VOLUME (test code=MPV) 8.5 fL 6.7-11.0 IMMATURE GRANULOCYTE % (test code=IG%) 7.3 % 0.0-5.0 "The appearance of immature granulocytes (myelocytes,pro-myelocytes, meta-myelocytes) in the peripheral blood ofnon- individuals can indicate a response toinfection, inflammation, or other stimulus to the bonemarrow" NUCLEATED RBC % (test code=NRBC%) 0.0 % 0-0 NEUTROPHIL # (test code=NT#) 8.44 K/mm3 1.8-7.7 IMMATURE GRANULOCYTE # (test code=IG#) 0.90 x10 3/uL 0-0.03 LYMPHOCYTE # (test code=LY#) 1.39 K/mm3 1.0-5.0 MONOCYTE # (test code=MO#) 1.42 K/mm3 0-0.8 EOSINOPHIL # (test code=EO#) 0.17 K/mm3 0.0-0.5 BASOPHIL # (test code=BA#) 0.07 K/mm3 0.0-0.2 NUCLEATED RBC # (test code=NRBC#) 0.00 K/mm3 0.0-0.1 MANUAL DIFF REQUIRED (test code=MDIFF) YES STAIN ACCEPTABILITY (test code=STN ACCEPTABLE) TOTAL CELLS COUNTED (test code=TCC) #CELLS SEGMENTED NEUTROPHILS (test code=SEG) % 39-69 LYMPHOCYTE (test code=LYMPH) % 25-55 MONOCYTE (test code=MON) % 0-10 EOSINOPHIL (test code=EOS) % 0.0-5.0 CABOT RINGS (test code=CAB) MORPHOLOGY COMMENT (test code=MOC) PLATELET ESTIMATE (test code=PLTEST) PLATELET MORPHOLOGY (test code=PLTMORPH) PLEURAL [id number] 12:11:00 RUN DATE: 12/27/18 [facility] PAGE 1 RUN TIME: 1211 Specimen Inqui ry RUN USER: INTERFACE PATIENT: BLADIMIR FAROOQ ACCT #: [id number] LOC: [place] U #: [id number] AGE/SX: 43/F ROOM: [facility] RE12/22/18REG DR: Meagan Betancourt MD : 75 BED: A DIS: STATUS: ADM IN TLOC: SPEC #: [id number] RECD: 12/23/18 STATUS: REJI [facility] #: [id number] LUCINDA: 12/22/18- [facility] DR: Meagan Betancourt ENTERED: 12/23/18 SP TYPE: PLEURAL FL OTHR DR: Jesse Catalan MD, Vinh T MDORDERED: GROSS [place]: [place] [id number] [address] Jesse Catalan MD [address] [place] [address] Srinivas Cordero MD [address] [place] [address] PROCEDURES: GROSS (12/27/18-1050) TISSUES: PLEURAL FLUID, NOS - 7ML YELLOW FLUID CLINICAL HISTORY LUCINDA ECTION DATE: 12/22/2018 LEFT PLEURAL EFFUSION FINAL DIAGNOSIS P leural fluid, left thoracentesis: MARKED ACUTE INFLAMMATION NEGATI VE FOR MALIGNANCY FA/sm D [id number], [address] CONTINUED ON NEXT PAGE RUN DATE: 12/27/18 [facility] PAGE 2 RUN TIME: 1211 Specimen Inquiry RUN USER: INTERFACE SPEC #: [id number] PATIENT: BLADIMIR FAROOQ #[id number] (Continued)--- --------- MACROSCOPIC The specimen consists of 7 mL of puneet color ed fluid for concentration and evaluation. MICROSCOPIC The smears , cytospin and cell block show numerous acute inflammatory cells. Cytologic e valuation is limited due to absence of mesothelial cells. No malignant cells are seen. All of the stains, including any controls performed, stain appropriately. MICROSCOPIC PERFORMED AT [facility] [address] [place] [address] (p)[phone] PERFORMING SITE Diagnosis performed at: [facility] [address] [facility], [place] [address] Signed SIGNATURE O Leodan Bloom MD 12/27/18 1211 END OF REPORT BASIC METABOLIC [id number] 09:30:00* Test Item Value Reference Range Comments SODIUM (test code=NA) 138 mmol/L 136-145 POTASSIUM (test code=K) 3.0 mmol/L 3.5-5.1 CHLORIDE (test code=CL) 102.0 mmol/L 98-107 CARBON DIOXIDE (test code=CO2) 30.0 mmol/L 21-32 ANION GAP (test code=GAP) 9.0 10-20 GLUCOSE (test code=GLU) 99 mg/dL 74-106 BLOOD UREA NITROGEN (test code=BUN) 4 mg/dL 7-18 GLOMERULAR FILTRATION RATE (test code=GFR) > 60 mL/min >=60 Estimated GFR by using Modified MDRD formula.Chronic kidney disease is defined as either kidney damageor GFR <60 mL/min/1.73 m2 for >3 months. CREATININE (test code=CREAT) 0.40 mg/dL 0.55-1.02 Note change in reference range due to change in reagent. BUN/CREATININE RATIO (test code=BUN/CREA) 10.0 10-20 CALCIUM (test code=CA) 8.3 mg/dL 8.5-10.1 BASIC METABOLIC [id number] 09:24:00* Test Item Value Reference Range Comments SODIUM (test code=NA) 138 mmol/L 136-145 POTASSIUM (test code=K) 3.0 mmol/L 3.5-5.1 CHLORIDE (test code=CL) 102.0 mmol/L 98-107 CARBON DIOXIDE (test code=CO2) mmol/L 21-32 ANION GAP (test code=GAP) 10-20 GLUCOSE (test code=GLU) mg/dL 74-106 BLOOD UREA NITROGEN (test code=BUN) mg/dL 7-18 GLOMERULAR FILTRATION RATE (test code=GFR) mL/min >=60 CREATININE (test code=CREAT) mg/dL 0.55-1.02 BUN/CREATININE RATIO (test code=BUN/CREA) 10-20 CALCIUM (test code=CA) mg/dL 8.5-10.1 CBC W/AUTO [id number] 09:06:00* Test Item Value Reference Range Comments WHITE BLOOD CELL (test code=WBC) 16.2 K/mm3 4.5-12.5 RED BLOOD CELL (test code=RBC) 3.51 mill/mm3 3.7-5.2 HEMOGLOBIN (test code=HGB) 11.3 gram/dL 11.5-15.5 HEMATOCRIT (test code=HCT) 34.4 % 36.0-46.0 MEAN CELL VOLUME (test code=MCV) 98.0 fL 80-98 MEAN CELL HGB (test code=MCH) 32.2 picogram 27.0-33.0 MEAN CELL HGB CONCETRATION (test code=MCHC) 32.8 gram/dL 33.0-36.0 RED CELL DISTRIBUTION WIDTH (test code=RDW) 14.0 % 11.6-16.2 RED CELL DISTRIBUTION WIDTH SD (test code=RDW-SD) 50.4 fL 37.0-51.0 PLATELET COUNT (test code=PLT) 417 K/mm3 150-450 MEAN PLATELET VOLUME (test code=MPV) 8.7 fL 6.7-11.0 NEUTROPHIL % (test code=NT%) 71.0 % 39.0-69.0 IMMATURE GRANULOCYTE % (test code=IG%) 5.7 % 0.0-5.0 "The appearance of immature granulocytes (myelocytes,pro-myelocytes, meta-myelocytes) in the peripheral blood ofnon- individuals can indicate a response toinfection, inflammation, or other stimulus to the bonemarrow" LYMPHOCYTE % (test code=LY%) 8.9 % 25.0-55.0 MONOCYTE % (test code=MO%) 12.6 % 0.0-10.0 EOSINOPHIL % (test code=EO%) 1.2 % 0.0-5.0 BASOPHIL % (test code=BA%) 0.6 % 0.0-1.0 NUCLEATED RBC % (test code=NRBC%) 0.0 % 0-0 NEUTROPHIL # (test code=NT#) 11.50 K/mm3 1.8-7.7 IMMATURE GRANULOCYTE # (test code=IG#) 0.93 x10 3/uL 0-0.03 LYMPHOCYTE # (test code=LY#) 1.45 K/mm3 1.0-5.0 MONOCYTE # (test code=MO#) 2.04 K/mm3 0-0.8 EOSINOPHIL # (test code=EO#) 0.19 K/mm3 0.0-0.5 BASOPHIL # (test code=BA#) 0.10 K/mm3 0.0-0.2 NUCLEATED RBC # (test code=NRBC#) 0.00 K/mm3 0.0-0.1 - XR CHEST 2 [id number] 07:47:00 FAX: Meagan Cooper MD [phone] [place]: St: ADM FAX: Jimmie Watters MD [phone] Name: BLADIMIR FAROOQ [facility] : 1975 Age/S: 43/F [address] [facility] Unit #: [id number] Loc: V.3037 [place] [address] Phys: Jimmie Monreal MD Acct: [id number] Dis Date: Status: ADM IN PHONE #: [phone] Exam Date: 12/26/2018 0728 FAX #: [phone] Reason: f/u EXAMS: CPT CODE: [id number] XR CHEST 2 V 17057 CLINICAL HISTORY: Pneumonia, sepsis TECHNIQUE: AP chest x-ray COMPARISON: 12/22/18 IMPRESSION: Mildly enlarged loculated pleural fluid collection within the upper left hemithorax. Partial left lung atelectasis. Right basilar subsegmental atelectasis without pleural effusion. Normal heart size. at 0742 Reported and signed by: Kenia Pearce D.O. CC: Meagan Betancourt MD; Jimmie Monreal MD Technologist: PATTI MILAN (R) Trnscrd Date/Time/By: 12/26/2018 (0747) : By: [email or web address] Orig Print D/T: S: 12/26/2018 (7845) PAGE 1 Signed Report VANCOMYCIN [id number] 06:41:00* Test Item Value Reference Range Comments VANCOMYCIN TROUGH (test code=VANCT) 18.9 ug/mL 10-20 BASIC METABOLIC [id number] 06:39:00* Test Item Value Reference Range Comments SODIUM (test code=NA) 137 mmol/L 136-145 POTASSIUM (test code=K) 3.0 mmol/L 3.5-5.1 Results called to by Perk [email or web address] 12/26/18 0639Critical results verified and read back by Nurse? CHLORIDE (test code=CL) 103.0 mmol/L 98-107 CARBON DIOXIDE (test code=CO2) 29.0 mmol/L 21-32 ANION GAP (test code=GAP) 8.0 10-20 GLUCOSE (test code=GLU) 101 mg/dL 74-106 BLOOD UREA NITROGEN (test code=BUN) 3 mg/dL 7-18 GLOMERULAR FILTRATION RATE (test code=GFR) > 60 mL/min >=60 Estimated GFR by using Modified MDRD formula.Chronic kidney disease is defined as either kidney damageor GFR <60 mL/min/1.73 m2 for >3 months. CREATININE (test code=CREAT) 0.30 mg/dL 0.55-1.02 Note change in reference range due to change in reagent. BUN/CREATININE RATIO (test code=BUN/CREA) 10.0 10-20 CALCIUM (test code=CA) 7.7 mg/dL 8.5-10.1 BASIC METABOLIC [id number] 06:33:00* Test Item Value Reference Range Comments SODIUM (test code=NA) mmol/L 136-145 POTASSIUM (test code=K) mmol/L 3.5-5.1 CHLORIDE (test code=CL) mmol/L 98-107 CARBON DIOXIDE (test code=CO2) 29.0 mmol/L 21-32 ANION GAP (test code=GAP) 10-20 GLUCOSE (test code=GLU) 101 mg/dL 74-106 BLOOD UREA NITROGEN (test code=BUN) 3 mg/dL 7-18 GLOMERULAR FILTRATION RATE (test code=GFR) > 60 mL/min >=60 Estimated GFR by using Modified MDRD formula.Chronic kidney disease is defined as either kidney damageor GFR <60 mL/min/1.73 m2 for >3 months. CREATININE (test code=CREAT) 0.30 mg/dL 0.55-1.02 Note change in reference range due to change in reagent. BUN/CREATININE RATIO (test code=BUN/CREA) 10.0 10-20 CALCIUM (test code=CA) 7.7 mg/dL 8.5-10.1 CBC W/AUTO [id number] 06:09:00* Test Item Value Reference Range Comments WHITE BLOOD CELL (test code=WBC) 15.8 K/mm3 4.5-12.5 RED BLOOD CELL (test code=RBC) 3.20 mill/mm3 3.7-5.2 HEMOGLOBIN (test code=HGB) 10.3 gram/dL 11.5-15.5 HEMATOCRIT (test code=HCT) 31.0 % 36.0-46.0 MEAN CELL VOLUME (test code=MCV) 96.9 fL 80-98 MEAN CELL HGB (test code=MCH) 32.2 picogram 27.0-33.0 MEAN CELL HGB CONCETRATION (test code=MCHC) 33.2 gram/dL 33.0-36.0 RED CELL DISTRIBUTION WIDTH (test code=RDW) 13.5 % 11.6-16.2 RED CELL DISTRIBUTION WIDTH SD (test code=RDW-SD) 48.6 fL 37.0-51.0 PLATELET COUNT (test code=PLT) 337 K/mm3 150-450 MEAN PLATELET VOLUME (test code=MPV) 8.5 fL 6.7-11.0 NEUTROPHIL % (test code=NT%) 77.7 % 39.0-69.0 IMMATURE GRANULOCYTE % (test code=IG%) 2.3 % 0.0-5.0 LYMPHOCYTE % (test code=LY%) 8.7 % 25.0-55.0 MONOCYTE % (test code=MO%) 10.5 % 0.0-10.0 EOSINOPHIL % (test code=EO%) 0.4 % 0.0-5.0 BASOPHIL % (test code=BA%) 0.4 % 0.0-1.0 NUCLEATED RBC % (test code=NRBC%) 0.0 % 0-0 NEUTROPHIL # (test code=NT#) 12.29 K/mm3 1.8-7.7 IMMATURE GRANULOCYTE # (test code=IG#) 0.37 x10 3/uL 0-0.03 LYMPHOCYTE # (test code=LY#) 1.38 K/mm3 1.0-5.0 MONOCYTE # (test code=MO#) 1.66 K/mm3 0-0.8 EOSINOPHIL # (test code=EO#) 0.07 K/mm3 0.0-0.5 BASOPHIL # (test code=BA#) 0.06 K/mm3 0.0-0.2 NUCLEATED RBC # (test code=NRBC#) 0.00 K/mm3 0.0-0.1 MANUAL DIFF REQUIRED (test code=MDIFF) NO VITAMIN [id number] 12:06:00* Test Item Value Reference Range Comments VITAMIN B12 (test code=VITB12) 549 pg/mL 193-986 FOLIC [id number] 12:06:00* Test Item Value Reference Range Comments FOLIC ACID (test code=FOL) 3.9 ng/mL 3.10-17.50 THYROID PROFILE [id number] 12:06:00* Test Item Value Reference Range Comments T3 UPTAKE (test code=T3UP) 38.0 % 30.0-40.0 T4 (THYROXINE) (test code=T4) 9.8 ug/dL 4.5-13.9 T7 (FREE THYROXINE INDEX) (test code=T7) 3.72 FTI 1.3-5.1 THYROID STIMULATING HORMONE (test code=TSH) 1.070 uIU/mL 0.36-3.74 TSH REFERENCE RANGES: EUTHYROID: 0.35 - 4.3 mIU/mL HYPO : > 5.5 mIU/mL HYPER : < 0.35 mIU/mL METHYLMALONIC [id number] 12:06:00* Test Item Value Reference Range Comments METHYLMALONIC ACID (test code=METHM) nmol/L [id number] 12:06:00* Test Item Value Reference Range Comments HOMOCYSTEINE (test code=HOMOCY) 5.4 umol/L 0.0-15.0 Performed At: [facility] [address] [id number] Martín Gomez MD Ph:[phone] CBC W/MANUAL [id number] 09:52:00* Test Item Value Reference Range Comments WHITE BLOOD CELL (test code=WBC) 19.3 K/mm3 4.5-12.5 RED BLOOD CELL (test code=RBC) 3.19 mill/mm3 3.7-5.2 HEMOGLOBIN (test code=HGB) 10.5 gram/dL 11.5-15.5 HEMATOCRIT (test code=HCT) 30.7 % 36.0-46.0 MEAN CELL VOLUME (test code=MCV) 96.2 fL 80-98 MEAN CELL HGB (test code=MCH) 32.9 picogram 27.0-33.0 MEAN CELL HGB CONCETRATION (test code=MCHC) 34.2 gram/dL 33.0-36.0 RED CELL DISTRIBUTION WIDTH (test code=RDW) 13.5 % 11.6-16.2 RED CELL DISTRIBUTION WIDTH SD (test code=RDW-SD) 47.9 fL 37.0-51.0 PLATELET COUNT (test code=PLT) 330 K/mm3 150-450 MEAN PLATELET VOLUME (test code=MPV) 9.1 fL 6.7-11.0 IMMATURE GRANULOCYTE % (test code=IG%) 2.0 % 0.0-5.0 NUCLEATED RBC % (test code=NRBC%) 0.0 % 0-0 NEUTROPHIL # (test code=NT#) 15.78 K/mm3 1.8-7.7 IMMATURE GRANULOCYTE # (test code=IG#) 0.38 x10 3/uL 0-0.03 LYMPHOCYTE # (test code=LY#) 1.32 K/mm3 1.0-5.0 MONOCYTE # (test code=MO#) 1.63 K/mm3 0-0.8 EOSINOPHIL # (test code=EO#) 0.11 K/mm3 0.0-0.5 BASOPHIL # (test code=BA#) 0.07 K/mm3 0.0-0.2 NUCLEATED RBC # (test code=NRBC#) 0.00 K/mm3 0.0-0.1 MANUAL DIFF REQUIRED (test code=MDIFF) YES STAIN ACCEPTABILITY (test code=STN ACCEPTABLE) STAIN ACCEPTABLE TOTAL CELLS COUNTED (test code=TCC) 100 #CELLS SEGMENTED NEUTROPHILS (test code=SEG) 86 % 39-69 BAND NEUTROPHIL (test code=BAND) 3 % 0-10 LYMPHOCYTE (test code=LYMPH) 6 % 25-55 MONOCYTE (test code=MON) 5 % 0-10 MORPHOLOGY COMMENT (test code=MOC) NORMAL PLATELET ESTIMATE (test code=PLTEST) ADEQUATE PLATELET MORPHOLOGY (test code=PLTMORPH) NORMAL BASIC METABOLIC [id number] 07:42:00* Test Item Value Reference Range Comments SODIUM (test code=NA) 139 mmol/L 136-145 POTASSIUM (test code=K) 3.1 mmol/L 3.5-5.1 CHLORIDE (test code=CL) 107.0 mmol/L 98-107 CARBON DIOXIDE (test code=CO2) 25.0 mmol/L 21-32 ANION GAP (test code=GAP) 10.1 10-20 GLUCOSE (test code=GLU) 77 mg/dL 74-106 BLOOD UREA NITROGEN (test code=BUN) 4 mg/dL 7-18 GLOMERULAR FILTRATION RATE (test code=GFR) > 60 mL/min >=60 Estimated GFR by using Modified MDRD formula.Chronic kidney disease is defined as either kidney damageor GFR <60 mL/min/1.73 m2 for >3 months. CREATININE (test code=CREAT) 0.30 mg/dL 0.55-1.02 Note change in reference range due to change in reagent. BUN/CREATININE RATIO (test code=BUN/CREA) 13.3 10-20 CALCIUM (test code=CA) 7.3 mg/dL 8.5-10.1 BASIC METABOLIC [id number] 07:38:00* Test Item Value Reference Range Comments SODIUM (test code=NA) 139 mmol/L 136-145 POTASSIUM (test code=K) 3.1 mmol/L 3.5-5.1 CHLORIDE (test code=CL) 107.0 mmol/L 98-107 CARBON DIOXIDE (test code=CO2) mmol/L 21-32 ANION GAP (test code=GAP) 10-20 GLUCOSE (test code=GLU) mg/dL 74-106 BLOOD UREA NITROGEN (test code=BUN) mg/dL 7-18 GLOMERULAR FILTRATION RATE (test code=GFR) mL/min >=60 CREATININE (test code=CREAT) mg/dL 0.55-1.02 BUN/CREATININE RATIO (test code=BUN/CREA) 10-20 CALCIUM (test code=CA) mg/dL 8.5-10.1 CBC W/MANUAL [id number] 07:30:00* Test Item Value Reference Range Comments WHITE BLOOD CELL (test code=WBC) 19.3 K/mm3 4.5-12.5 RED BLOOD CELL (test code=RBC) 3.19 mill/mm3 3.7-5.2 HEMOGLOBIN (test code=HGB) 10.5 gram/dL 11.5-15.5 HEMATOCRIT (test code=HCT) 30.7 % 36.0-46.0 MEAN CELL VOLUME (test code=MCV) 96.2 fL 80-98 MEAN CELL HGB (test code=MCH) 32.9 picogram 27.0-33.0 MEAN CELL HGB CONCETRATION (test code=MCHC) 34.2 gram/dL 33.0-36.0 RED CELL DISTRIBUTION WIDTH (test code=RDW) 13.5 % 11.6-16.2 RED CELL DISTRIBUTION WIDTH SD (test code=RDW-SD) 47.9 fL 37.0-51.0 PLATELET COUNT (test code=PLT) 330 K/mm3 150-450 MEAN PLATELET VOLUME (test code=MPV) 9.1 fL 6.7-11.0 IMMATURE GRANULOCYTE % (test code=IG%) 2.0 % 0.0-5.0 NUCLEATED RBC % (test code=NRBC%) 0.0 % 0-0 NEUTROPHIL # (test code=NT#) 15.78 K/mm3 1.8-7.7 IMMATURE GRANULOCYTE # (test code=IG#) 0.38 x10 3/uL 0-0.03 LYMPHOCYTE # (test code=LY#) 1.32 K/mm3 1.0-5.0 MONOCYTE # (test code=MO#) 1.63 K/mm3 0-0.8 EOSINOPHIL # (test code=EO#) 0.11 K/mm3 0.0-0.5 BASOPHIL # (test code=BA#) 0.07 K/mm3 0.0-0.2 NUCLEATED RBC # (test code=NRBC#) 0.00 K/mm3 0.0-0.1 MANUAL DIFF REQUIRED (test code=MDIFF) YES STAIN ACCEPTABILITY (test code=STN ACCEPTABLE) TOTAL CELLS COUNTED (test code=TCC) #CELLS SEGMENTED NEUTROPHILS (test code=SEG) % 39-69 LYMPHOCYTE (test code=LYMPH) % 25-55 MONOCYTE (test code=MON) % 0-10 EOSINOPHIL (test code=EOS) % 0.0-5.0 CABOT RINGS (test code=CAB) MORPHOLOGY COMMENT (test code=MOC) PLATELET ESTIMATE (test code=PLTEST) PLATELET MORPHOLOGY (test code=PLTMORPH) CBC W/MANUAL [id number] 07:30:00* Test Item Value Reference Range Comments WHITE BLOOD CELL (test code=WBC) 19.3 K/mm3 4.5-12.5 RED BLOOD CELL (test code=RBC) 3.19 mill/mm3 3.7-5.2 HEMOGLOBIN (test code=HGB) 10.5 gram/dL 11.5-15.5 HEMATOCRIT (test code=HCT) 30.7 % 36.0-46.0 MEAN CELL VOLUME (test code=MCV) 96.2 fL 80-98 MEAN CELL HGB (test code=MCH) 32.9 picogram 27.0-33.0 MEAN CELL HGB CONCETRATION (test code=MCHC) 34.2 gram/dL 33.0-36.0 RED CELL DISTRIBUTION WIDTH (test code=RDW) 13.5 % 11.6-16.2 RED CELL DISTRIBUTION WIDTH SD (test code=RDW-SD) 47.9 fL 37.0-51.0 PLATELET COUNT (test code=PLT) 330 K/mm3 150-450 MEAN PLATELET VOLUME (test code=MPV) 9.1 fL 6.7-11.0 IMMATURE GRANULOCYTE % (test code=IG%) 2.0 % 0.0-5.0 NUCLEATED RBC % (test code=NRBC%) 0.0 % 0-0 NEUTROPHIL # (test code=NT#) 15.78 K/mm3 1.8-7.7 IMMATURE GRANULOCYTE # (test code=IG#) 0.38 x10 3/uL 0-0.03 LYMPHOCYTE # (test code=LY#) 1.32 K/mm3 1.0-5.0 MONOCYTE # (test code=MO#) 1.63 K/mm3 0-0.8 EOSINOPHIL # (test code=EO#) 0.11 K/mm3 0.0-0.5 BASOPHIL # (test code=BA#) 0.07 K/mm3 0.0-0.2 NUCLEATED RBC # (test code=NRBC#) 0.00 K/mm3 0.0-0.1 MANUAL DIFF REQUIRED (test code=MDIFF) YES STAIN ACCEPTABILITY (test code=STN ACCEPTABLE) TOTAL CELLS COUNTED (test code=TCC) #CELLS SEGMENTED NEUTROPHILS (test code=SEG) % 39-69 LYMPHOCYTE (test code=LYMPH) % 25-55 MONOCYTE (test code=MON) % 0-10 EOSINOPHIL (test code=EOS) % 0.0-5.0 CABOT RINGS (test code=CAB) MORPHOLOGY COMMENT (test code=MOC) PLATELET ESTIMATE (test code=PLTEST) PLATELET MORPHOLOGY (test code=PLTMORPH) CBC W/MANUAL [id number] 07:30:00* Test Item Value Reference Range Comments WHITE BLOOD CELL (test code=WBC) 19.3 K/mm3 4.5-12.5 RED BLOOD CELL (test code=RBC) 3.19 mill/mm3 3.7-5.2 HEMOGLOBIN (test code=HGB) 10.5 gram/dL 11.5-15.5 HEMATOCRIT (test code=HCT) 30.7 % 36.0-46.0 MEAN CELL VOLUME (test code=MCV) 96.2 fL 80-98 MEAN CELL HGB (test code=MCH) 32.9 picogram 27.0-33.0 MEAN CELL HGB CONCETRATION (test code=MCHC) 34.2 gram/dL 33.0-36.0 RED CELL DISTRIBUTION WIDTH (test code=RDW) 13.5 % 11.6-16.2 RED CELL DISTRIBUTION WIDTH SD (test code=RDW-SD) 47.9 fL 37.0-51.0 PLATELET COUNT (test code=PLT) 330 K/mm3 150-450 MEAN PLATELET VOLUME (test code=MPV) 9.1 fL 6.7-11.0 IMMATURE GRANULOCYTE % (test code=IG%) 2.0 % 0.0-5.0 NUCLEATED RBC % (test code=NRBC%) 0.0 % 0-0 NEUTROPHIL # (test code=NT#) 15.78 K/mm3 1.8-7.7 IMMATURE GRANULOCYTE # (test code=IG#) 0.38 x10 3/uL 0-0.03 LYMPHOCYTE # (test code=LY#) 1.32 K/mm3 1.0-5.0 MONOCYTE # (test code=MO#) 1.63 K/mm3 0-0.8 EOSINOPHIL # (test code=EO#) 0.11 K/mm3 0.0-0.5 BASOPHIL # (test code=BA#) 0.07 K/mm3 0.0-0.2 NUCLEATED RBC # (test code=NRBC#) 0.00 K/mm3 0.0-0.1 MANUAL DIFF REQUIRED (test code=MDIFF) YES STAIN ACCEPTABILITY (test code=STN ACCEPTABLE) TOTAL CELLS COUNTED (test code=TCC) #CELLS SEGMENTED NEUTROPHILS (test code=SEG) % 39-69 LYMPHOCYTE (test code=LYMPH) % 25-55 MONOCYTE (test code=MON) % 0-10 EOSINOPHIL (test code=EOS) % 0.0-5.0 MORPHOLOGY COMMENT (test code=MOC) PLATELET ESTIMATE (test code=PLTEST) PLATELET MORPHOLOGY (test code=PLTMORPH) CBC W/MANUAL [id number] 07:30:00* Test Item Value Reference Range Comments WHITE BLOOD CELL (test code=WBC) 19.3 K/mm3 4.5-12.5 RED BLOOD CELL (test code=RBC) 3.19 mill/mm3 3.7-5.2 HEMOGLOBIN (test code=HGB) 10.5 gram/dL 11.5-15.5 HEMATOCRIT (test code=HCT) 30.7 % 36.0-46.0 MEAN CELL VOLUME (test code=MCV) 96.2 fL 80-98 MEAN CELL HGB (test code=MCH) 32.9 picogram 27.0-33.0 MEAN CELL HGB CONCETRATION (test code=MCHC) 34.2 gram/dL 33.0-36.0 RED CELL DISTRIBUTION WIDTH (test code=RDW) 13.5 % 11.6-16.2 RED CELL DISTRIBUTION WIDTH SD (test code=RDW-SD) 47.9 fL 37.0-51.0 PLATELET COUNT (test code=PLT) 330 K/mm3 150-450 MEAN PLATELET VOLUME (test code=MPV) 9.1 fL 6.7-11.0 IMMATURE GRANULOCYTE % (test code=IG%) 2.0 % 0.0-5.0 NUCLEATED RBC % (test code=NRBC%) 0.0 % 0-0 NEUTROPHIL # (test code=NT#) 15.78 K/mm3 1.8-7.7 IMMATURE GRANULOCYTE # (test code=IG#) 0.38 x10 3/uL 0-0.03 LYMPHOCYTE # (test code=LY#) 1.32 K/mm3 1.0-5.0 MONOCYTE # (test code=MO#) 1.63 K/mm3 0-0.8 EOSINOPHIL # (test code=EO#) 0.11 K/mm3 0.0-0.5 BASOPHIL # (test code=BA#) 0.07 K/mm3 0.0-0.2 NUCLEATED RBC # (test code=NRBC#) 0.00 K/mm3 0.0-0.1 MANUAL DIFF REQUIRED (test code=MDIFF) YES STAIN ACCEPTABILITY (test code=STN ACCEPTABLE) TOTAL CELLS COUNTED (test code=TCC) #CELLS SEGMENTED NEUTROPHILS (test code=SEG) % 39-69 LYMPHOCYTE (test code=LYMPH) % 25-55 MONOCYTE (test code=MON) % 0-10 MORPHOLOGY COMMENT (test code=MOC) PLATELET ESTIMATE (test code=PLTEST) PLATELET MORPHOLOGY (test code=PLTMORPH) CBC W/MANUAL [id number] 07:30:00* Test Item Value Reference Range Comments WHITE BLOOD CELL (test code=WBC) 19.3 K/mm3 4.5-12.5 RED BLOOD CELL (test code=RBC) 3.19 mill/mm3 3.7-5.2 HEMOGLOBIN (test code=HGB) 10.5 gram/dL 11.5-15.5 HEMATOCRIT (test code=HCT) 30.7 % 36.0-46.0 MEAN CELL VOLUME (test code=MCV) 96.2 fL 80-98 MEAN CELL HGB (test code=MCH) 32.9 picogram 27.0-33.0 MEAN CELL HGB CONCETRATION (test code=MCHC) 34.2 gram/dL 33.0-36.0 RED CELL DISTRIBUTION WIDTH (test code=RDW) 13.5 % 11.6-16.2 RED CELL DISTRIBUTION WIDTH SD (test code=RDW-SD) 47.9 fL 37.0-51.0 PLATELET COUNT (test code=PLT) 330 K/mm3 150-450 MEAN PLATELET VOLUME (test code=MPV) 9.1 fL 6.7-11.0 IMMATURE GRANULOCYTE % (test code=IG%) 2.0 % 0.0-5.0 NUCLEATED RBC % (test code=NRBC%) 0.0 % 0-0 NEUTROPHIL # (test code=NT#) 15.78 K/mm3 1.8-7.7 IMMATURE GRANULOCYTE # (test code=IG#) 0.38 x10 3/uL 0-0.03 LYMPHOCYTE # (test code=LY#) 1.32 K/mm3 1.0-5.0 MONOCYTE # (test code=MO#) 1.63 K/mm3 0-0.8 EOSINOPHIL # (test code=EO#) 0.11 K/mm3 0.0-0.5 BASOPHIL # (test code=BA#) 0.07 K/mm3 0.0-0.2 NUCLEATED RBC # (test code=NRBC#) 0.00 K/mm3 0.0-0.1 MANUAL DIFF REQUIRED (test code=MDIFF) YES STAIN ACCEPTABILITY (test code=STN ACCEPTABLE) TOTAL CELLS COUNTED (test code=TCC) #CELLS SEGMENTED NEUTROPHILS (test code=SEG) % 39-69 LYMPHOCYTE (test code=LYMPH) % 25-55 MONOCYTE (test code=MON) % 0-10 EOSINOPHIL (test code=EOS) % 0.0-5.0 CABOT RINGS (test code=CAB) MORPHOLOGY COMMENT (test code=MOC) PLATELET ESTIMATE (test code=PLTEST) PLATELET MORPHOLOGY (test code=PLTMORPH) LACTIC [id number] 13:26:00* Test Item Value Reference Range Comments LACTIC ACID (test code=LACT) 1.1 mmol/L 0.4-1.9 - SP THORACENTESIS [id number] 09:46:00 Name: BLADIMIR FAROOQ [facility] : 1975 Age/S: 43 / F [address] Unit #: [id number] Loc: [place] [id number] Phys: Meagan Betancourt MD Acct: [id number] Dis Date: Status: ADM IN PHONE #: [phone] Exam Date: 12/22/20181703 FAX #: [phone] Reason: EXAMS: CPT CODE: [id number] SP THORACENTESIS W/IMAG [id number] Fluoro Time: DAP (Gy m2): Air Kerma (mGy): REASON FOR EXAM: Loculated left pleural effusion Exam order date: 12/22/2018 4:54 PM PROCEDURE: Ultrasound guided left thoracentesis Attending MEricD.: Meagan Betancourt MD CPT code: [id number], [id number] FINDINGS: Prior to the procedure, informed consent was obtained after risks and benefits of the procedure were explained to the patient. The patient agreed and wanted to proceed. The patient was brought to special procedures. The back was prepped and draped in the usual fashion. All elements of maximal sterile techniques were followed. Ultrasound was first used for assessment of the effusion. US shows moderate loculated left pleural effusion. Images of the effusion were submitted to PACS. 2% local lidocaine was given for local anesthetic. Under real time ultrasound guidance, a micropuncture needle was advanced into the left thoracic cavity. A guide wire was inserted and an 8 Fr catheter was inserted in the thoracic cavity. 350 mL of yellowish fluid obtained. The catheter was removed and hemostasis obtained. Samples were submitted for gram stain, cultures, cell count, LDH, glucose, and protein. MEDICATIONS: None COMPLICATIONS: No immediate. Blood loss: less than 5cc IMPRESSION: 350 mL of yellowish fluid removed from the left thoracic cavity. The patient has multiloculated left pleural effusion and most likely will need placement of large surgical chest tubes and possible thoracotomy at 0946 Reported and signed by: Srinivas Cordero M.D. PAGE 1 Signed Report (CONTINUED) Name: BLADIMIR FAROOQ [facility] : 1975 Age/S: 43 / F [address] Unit #: [id number] Loc: [place] [address] Phys: Meagan Betancourt MD Acct: [id number] Dis Date: Status: ADM IN PHONE #: [phone] Exam Date: 12/22/2018 1100 FAX #: [phone] Reason: EXAMS: CPT CODE: [id number] SP THORACENTESIS W/IMAG [id number] Fluoro Time: DAP (Gy m2): Air Kerma (mGy): <Continued> CC: Meagan Betancourt MD Technologist: DRE MARQUIS RT(R) Trnscb Date/Time: 12/24/2018 (0946) t.SDR.VTL Orig Print D/T: S: 12/24/2018 (2831) PAGE 2 Signed Report CBC W/MANUAL [id number] 08:03:00* Test Item Value Reference Range Comments WHITE BLOOD CELL (test code=WBC) 20.1 K/mm3 4.5-12.5 RED BLOOD CELL (test code=RBC) 3.44 mill/mm3 3.7-5.2 HEMOGLOBIN (test code=HGB) 11.4 gram/dL 11.5-15.5 HEMATOCRIT (test code=HCT) 33.3 % 36.0-46.0 MEAN CELL VOLUME (test code=MCV) 96.8 fL 80-98 MEAN CELL HGB (test code=MCH) 33.1 picogram 27.0-33.0 MEAN CELL HGB CONCETRATION (test code=MCHC) 34.2 gram/dL 33.0-36.0 RED CELL DISTRIBUTION WIDTH (test code=RDW) 13.5 % 11.6-16.2 RED CELL DISTRIBUTION WIDTH SD (test code=RDW-SD) 48.6 fL 37.0-51.0 PLATELET COUNT (test code=PLT) 327 K/mm3 150-450 MEAN PLATELET VOLUME (test code=MPV) 9.2 fL 6.7-11.0 IMMATURE GRANULOCYTE % (test code=IG%) 1.9 % 0.0-5.0 NUCLEATED RBC % (test code=NRBC%) 0.0 % 0-0 NEUTROPHIL # (test code=NT#) 17.05 K/mm3 1.8-7.7 IMMATURE GRANULOCYTE # (test code=IG#) 0.38 x10 3/uL 0-0.03 LYMPHOCYTE # (test code=LY#) 1.03 K/mm3 1.0-5.0 MONOCYTE # (test code=MO#) 1.57 K/mm3 0-0.8 EOSINOPHIL # (test code=EO#) 0.02 K/mm3 0.0-0.5 BASOPHIL # (test code=BA#) 0.05 K/mm3 0.0-0.2 NUCLEATED RBC # (test code=NRBC#) 0.00 K/mm3 0.0-0.1 MANUAL DIFF REQUIRED (test code=MDIFF) YES STAIN ACCEPTABILITY (test code=STN ACCEPTABLE) STAIN ACCEPTABLE TOTAL CELLS COUNTED (test code=TCC) 115 #CELLS SEGMENTED NEUTROPHILS (test code=SEG) 91.3 % 39-69 BAND NEUTROPHIL (test code=BAND) 0 % 0-10 LYMPHOCYTE (test code=LYMPH) 2.6 % 25-55 REACTIVE LYMPH (test code=RELYMPH) 0 % MONOCYTE (test code=MON) 5.2 % 0-10 EOSINOPHIL (test code=EOS) 0 % 0.0-5.0 BASOPHIL (test code=BASO) 0.9 % 0-1.0 METAMYELOCYTE (test code=META) 0 % 0-0 MYELOCYTE (test code=MYELO) 0 % 0.0-0.0 PROMYELOCYTE (test code=PROM) 0 % 0-0 POIKILOCYTOSIS (test code=POIK) 2+ BACILIO CELLS (test code=BACILIO) 1+ NONE PLATELET ESTIMATE (test code=PLTEST) ADEQUATE PLATELET MORPHOLOGY (test code=PLTMORPH) NORMAL IMMATURE FORMS (test code=IMMAT) 0 % 0-0 CBC W/MANUAL [id number] 06:06:00* Test Item Value Reference Range Comments WHITE BLOOD CELL (test code=WBC) 20.1 K/mm3 4.5-12.5 RED BLOOD CELL (test code=RBC) 3.44 mill/mm3 3.7-5.2 HEMOGLOBIN (test code=HGB) 11.4 gram/dL 11.5-15.5 HEMATOCRIT (test code=HCT) 33.3 % 36.0-46.0 MEAN CELL VOLUME (test code=MCV) 96.8 fL 80-98 MEAN CELL HGB (test code=MCH) 33.1 picogram 27.0-33.0 MEAN CELL HGB CONCETRATION (test code=MCHC) 34.2 gram/dL 33.0-36.0 RED CELL DISTRIBUTION WIDTH (test code=RDW) 13.5 % 11.6-16.2 RED CELL DISTRIBUTION WIDTH SD (test code=RDW-SD) 48.6 fL 37.0-51.0 PLATELET COUNT (test code=PLT) 327 K/mm3 150-450 MEAN PLATELET VOLUME (test code=MPV) 9.2 fL 6.7-11.0 IMMATURE GRANULOCYTE % (test code=IG%) 1.9 % 0.0-5.0 NUCLEATED RBC % (test code=NRBC%) 0.0 % 0-0 NEUTROPHIL # (test code=NT#) 17.05 K/mm3 1.8-7.7 IMMATURE GRANULOCYTE # (test code=IG#) 0.38 x10 3/uL 0-0.03 LYMPHOCYTE # (test code=LY#) 1.03 K/mm3 1.0-5.0 MONOCYTE # (test code=MO#) 1.57 K/mm3 0-0.8 EOSINOPHIL # (test code=EO#) 0.02 K/mm3 0.0-0.5 BASOPHIL # (test code=BA#) 0.05 K/mm3 0.0-0.2 NUCLEATED RBC # (test code=NRBC#) 0.00 K/mm3 0.0-0.1 MANUAL DIFF REQUIRED (test code=MDIFF) YES STAIN ACCEPTABILITY (test code=STN ACCEPTABLE) TOTAL CELLS COUNTED (test code=TCC) #CELLS SEGMENTED NEUTROPHILS (test code=SEG) % 39-69 LYMPHOCYTE (test code=LYMPH) % 25-55 MONOCYTE (test code=MON) % 0-10 EOSINOPHIL (test code=EOS) % 0.0-5.0 CABOT RINGS (test code=CAB) MORPHOLOGY COMMENT (test code=MOC) PLATELET ESTIMATE (test code=PLTEST) PLATELET MORPHOLOGY (test code=PLTMORPH) CBC W/MANUAL [id number] 06:06:00* Test Item Value Reference Range Comments WHITE BLOOD CELL (test code=WBC) 20.1 K/mm3 4.5-12.5 RED BLOOD CELL (test code=RBC) 3.44 mill/mm3 3.7-5.2 HEMOGLOBIN (test code=HGB) 11.4 gram/dL 11.5-15.5 HEMATOCRIT (test code=HCT) 33.3 % 36.0-46.0 MEAN CELL VOLUME (test code=MCV) 96.8 fL 80-98 MEAN CELL HGB (test code=MCH) 33.1 picogram 27.0-33.0 MEAN CELL HGB CONCETRATION (test code=MCHC) 34.2 gram/dL 33.0-36.0 RED CELL DISTRIBUTION WIDTH (test code=RDW) 13.5 % 11.6-16.2 RED CELL DISTRIBUTION WIDTH SD (test code=RDW-SD) 48.6 fL 37.0-51.0 PLATELET COUNT (test code=PLT) 327 K/mm3 150-450 MEAN PLATELET VOLUME (test code=MPV) 9.2 fL 6.7-11.0 IMMATURE GRANULOCYTE % (test code=IG%) 1.9 % 0.0-5.0 NUCLEATED RBC % (test code=NRBC%) 0.0 % 0-0 NEUTROPHIL # (test code=NT#) 17.05 K/mm3 1.8-7.7 IMMATURE GRANULOCYTE # (test code=IG#) 0.38 x10 3/uL 0-0.03 LYMPHOCYTE # (test code=LY#) 1.03 K/mm3 1.0-5.0 MONOCYTE # (test code=MO#) 1.57 K/mm3 0-0.8 EOSINOPHIL # (test code=EO#) 0.02 K/mm3 0.0-0.5 BASOPHIL # (test code=BA#) 0.05 K/mm3 0.0-0.2 NUCLEATED RBC # (test code=NRBC#) 0.00 K/mm3 0.0-0.1 MANUAL DIFF REQUIRED (test code=MDIFF) YES STAIN ACCEPTABILITY (test code=STN ACCEPTABLE) TOTAL CELLS COUNTED (test code=TCC) #CELLS SEGMENTED NEUTROPHILS (test code=SEG) % 39-69 LYMPHOCYTE (test code=LYMPH) % 25-55 MONOCYTE (test code=MON) % 0-10 EOSINOPHIL (test code=EOS) % 0.0-5.0 MORPHOLOGY COMMENT (test code=MOC) PLATELET ESTIMATE (test code=PLTEST) PLATELET MORPHOLOGY (test code=PLTMORPH) CBC W/MANUAL [id number] 06:06:00* Test Item Value Reference Range Comments WHITE BLOOD CELL (test code=WBC) 20.1 K/mm3 4.5-12.5 RED BLOOD CELL (test code=RBC) 3.44 mill/mm3 3.7-5.2 HEMOGLOBIN (test code=HGB) 11.4 gram/dL 11.5-15.5 HEMATOCRIT (test code=HCT) 33.3 % 36.0-46.0 MEAN CELL VOLUME (test code=MCV) 96.8 fL 80-98 MEAN CELL HGB (test code=MCH) 33.1 picogram 27.0-33.0 MEAN CELL HGB CONCETRATION (test code=MCHC) 34.2 gram/dL 33.0-36.0 RED CELL DISTRIBUTION WIDTH (test code=RDW) 13.5 % 11.6-16.2 RED CELL DISTRIBUTION WIDTH SD (test code=RDW-SD) 48.6 fL 37.0-51.0 PLATELET COUNT (test code=PLT) 327 K/mm3 150-450 MEAN PLATELET VOLUME (test code=MPV) 9.2 fL 6.7-11.0 IMMATURE GRANULOCYTE % (test code=IG%) 1.9 % 0.0-5.0 NUCLEATED RBC % (test code=NRBC%) 0.0 % 0-0 NEUTROPHIL # (test code=NT#) 17.05 K/mm3 1.8-7.7 IMMATURE GRANULOCYTE # (test code=IG#) 0.38 x10 3/uL 0-0.03 LYMPHOCYTE # (test code=LY#) 1.03 K/mm3 1.0-5.0 MONOCYTE # (test code=MO#) 1.57 K/mm3 0-0.8 EOSINOPHIL # (test code=EO#) 0.02 K/mm3 0.0-0.5 BASOPHIL # (test code=BA#) 0.05 K/mm3 0.0-0.2 NUCLEATED RBC # (test code=NRBC#) 0.00 K/mm3 0.0-0.1 MANUAL DIFF REQUIRED (test code=MDIFF) YES STAIN ACCEPTABILITY (test code=STN ACCEPTABLE) TOTAL CELLS COUNTED (test code=TCC) #CELLS SEGMENTED NEUTROPHILS (test code=SEG) % 39-69 LYMPHOCYTE (test code=LYMPH) % 25-55 MONOCYTE (test code=MON) % 0-10 MORPHOLOGY COMMENT (test code=MOC) PLATELET ESTIMATE (test code=PLTEST) PLATELET MORPHOLOGY (test code=PLTMORPH) CBC W/MANUAL [id number] 06:05:00* Test Item Value Reference Range Comments WHITE BLOOD CELL (test code=WBC) 20.1 K/mm3 4.5-12.5 RED BLOOD CELL (test code=RBC) 3.44 mill/mm3 3.7-5.2 HEMOGLOBIN (test code=HGB) 11.4 gram/dL 11.5-15.5 HEMATOCRIT (test code=HCT) 33.3 % 36.0-46.0 MEAN CELL VOLUME (test code=MCV) 96.8 fL 80-98 MEAN CELL HGB (test code=MCH) 33.1 picogram 27.0-33.0 MEAN CELL HGB CONCETRATION (test code=MCHC) 34.2 gram/dL 33.0-36.0 RED CELL DISTRIBUTION WIDTH (test code=RDW) 13.5 % 11.6-16.2 RED CELL DISTRIBUTION WIDTH SD (test code=RDW-SD) 48.6 fL 37.0-51.0 PLATELET COUNT (test code=PLT) 327 K/mm3 150-450 MEAN PLATELET VOLUME (test code=MPV) 9.2 fL 6.7-11.0 IMMATURE GRANULOCYTE % (test code=IG%) 1.9 % 0.0-5.0 NUCLEATED RBC % (test code=NRBC%) 0.0 % 0-0 NEUTROPHIL # (test code=NT#) 17.05 K/mm3 1.8-7.7 IMMATURE GRANULOCYTE # (test code=IG#) 0.38 x10 3/uL 0-0.03 LYMPHOCYTE # (test code=LY#) 1.03 K/mm3 1.0-5.0 MONOCYTE # (test code=MO#) 1.57 K/mm3 0-0.8 EOSINOPHIL # (test code=EO#) 0.02 K/mm3 0.0-0.5 BASOPHIL # (test code=BA#) 0.05 K/mm3 0.0-0.2 NUCLEATED RBC # (test code=NRBC#) 0.00 K/mm3 0.0-0.1 MANUAL DIFF REQUIRED (test code=MDIFF) YES STAIN ACCEPTABILITY (test code=STN ACCEPTABLE) TOTAL CELLS COUNTED (test code=TCC) #CELLS SEGMENTED NEUTROPHILS (test code=SEG) % 39-69 LYMPHOCYTE (test code=LYMPH) % 25-55 MONOCYTE (test code=MON) % 0-10 EOSINOPHIL (test code=EOS) % 0.0-5.0 CABOT RINGS (test code=CAB) MORPHOLOGY COMMENT (test code=MOC) PLATELET ESTIMATE (test code=PLTEST) PLATELET MORPHOLOGY (test code=PLTMORPH) CBC W/MANUAL [id number] 06:05:00* Test Item Value Reference Range Comments WHITE BLOOD CELL (test code=WBC) 20.1 K/mm3 4.5-12.5 RED BLOOD CELL (test code=RBC) 3.44 mill/mm3 3.7-5.2 HEMOGLOBIN (test code=HGB) 11.4 gram/dL 11.5-15.5 HEMATOCRIT (test code=HCT) 33.3 % 36.0-46.0 MEAN CELL VOLUME (test code=MCV) 96.8 fL 80-98 MEAN CELL HGB (test code=MCH) 33.1 picogram 27.0-33.0 MEAN CELL HGB CONCETRATION (test code=MCHC) 34.2 gram/dL 33.0-36.0 RED CELL DISTRIBUTION WIDTH (test code=RDW) 13.5 % 11.6-16.2 RED CELL DISTRIBUTION WIDTH SD (test code=RDW-SD) 48.6 fL 37.0-51.0 PLATELET COUNT (test code=PLT) 327 K/mm3 150-450 MEAN PLATELET VOLUME (test code=MPV) 9.2 fL 6.7-11.0 IMMATURE GRANULOCYTE % (test code=IG%) 1.9 % 0.0-5.0 NUCLEATED RBC % (test code=NRBC%) 0.0 % 0-0 NEUTROPHIL # (test code=NT#) 17.05 K/mm3 1.8-7.7 IMMATURE GRANULOCYTE # (test code=IG#) 0.38 x10 3/uL 0-0.03 LYMPHOCYTE # (test code=LY#) 1.03 K/mm3 1.0-5.0 MONOCYTE # (test code=MO#) 1.57 K/mm3 0-0.8 EOSINOPHIL # (test code=EO#) 0.02 K/mm3 0.0-0.5 BASOPHIL # (test code=BA#) 0.05 K/mm3 0.0-0.2 NUCLEATED RBC # (test code=NRBC#) 0.00 K/mm3 0.0-0.1 MANUAL DIFF REQUIRED (test code=MDIFF) YES STAIN ACCEPTABILITY (test code=STN ACCEPTABLE) TOTAL CELLS COUNTED (test code=TCC) #CELLS SEGMENTED NEUTROPHILS (test code=SEG) % 39-69 LYMPHOCYTE (test code=LYMPH) % 25-55 MONOCYTE (test code=MON) % 0-10 EOSINOPHIL (test code=EOS) % 0.0-5.0 CABOT RINGS (test code=CAB) MORPHOLOGY COMMENT (test code=MOC) PLATELET ESTIMATE (test code=PLTEST) PLATELET MORPHOLOGY (test code=PLTMORPH) BASIC METABOLIC [id number] 05:56:00* Test Item Value Reference Range Comments SODIUM (test code=NA) 138 mmol/L 136-145 POTASSIUM (test code=K) 3.3 mmol/L 3.5-5.1 CHLORIDE (test code=CL) 104.0 mmol/L 98-107 CARBON DIOXIDE (test code=CO2) 26.0 mmol/L 21-32 ANION GAP (test code=GAP) 11.3 10-20 GLUCOSE (test code=GLU) 74 mg/dL 74-106 BLOOD UREA NITROGEN (test code=BUN) 4 mg/dL 7-18 GLOMERULAR FILTRATION RATE (test code=GFR) > 60 mL/min >=60 Estimated GFR by using Modified MDRD formula.Chronic kidney disease is defined as either kidney damageor GFR <60 mL/min/1.73 m2 for >3 months. CREATININE (test code=CREAT) 0.40 mg/dL 0.55-1.02 Note change in reference range due to change in reagent. BUN/CREATININE RATIO (test code=BUN/CREA) 10.0 1020 CALCIUM (test code=CA) 7.9 mg/dL 8.5-10.1 VANCOMYCIN [id number] 05:56:00* Test Item Value Reference Range Comments VANCOMYCIN TROUGH (test code=VANCT) 7.7 ug/mL 10-20 BASIC METABOLIC [id number] 05:53:00* Test Item Value Reference Range Comments SODIUM (test code=NA) 138 mmol/L 136-145 POTASSIUM (test code=K) 3.3 mmol/L 3.5-5.1 CHLORIDE (test code=CL) 104.0 mmol/L 98-107 CARBON DIOXIDE (test code=CO2) mmol/L 21-32 ANION GAP (test code=GAP) 10-20 GLUCOSE (test code=GLU) mg/dL 74-106 BLOOD UREA NITROGEN (test code=BUN) mg/dL 7-18 GLOMERULAR FILTRATION RATE (test code=GFR) mL/min >=60 CREATININE (test code=CREAT) mg/dL 0.55-1.02 BUN/CREATININE RATIO (test code=BUN/CREA) 10-20 CALCIUM (test code=CA) 7.9 mg/dL 8.5-10.1 VITAMIN [id number] 16:34:00* Test Item Value Reference Range Comments VITAMIN B12 (test code=VITB12) 549 pg/mL 193-986 FOLIC [id number] 16:34:00* Test Item Value Reference Range Comments FOLIC ACID (test code=FOL) 3.9 ng/mL 3.10-17.50 THYROID PROFILE [id number] 16:34:00* Test Item Value Reference Range Comments T3 UPTAKE (test code=T3UP) 38.0 % 30.0-40.0 T4 (THYROXINE) (test code=T4) 9.8 ug/dL 4.5-13.9 T7 (FREE THYROXINE INDEX) (test code=T7) 3.72 FTI 1.3-5.1 THYROID STIMULATING HORMONE (test code=TSH) 1.070 uIU/mL 0.36-3.74 TSH REFERENCE RANGES: EUTHYROID: 0.35 - 4.3 mIU/mL HYPO : > 5.5 mIU/mL HYPER : < 0.35 mIU/mL METHYLMALONIC [id number] 16:34:00* Test Item Value Reference Range Comments METHYLMALONIC ACID (test code=METHM) nmol/L [id number] 16:34:00* Test Item Value Reference Range Comments HOMOCYSTEINE (test code=HOMOCY) umol/L VANCOMYCIN [id number] 13:18:00* Test Item Value Reference Range Comments VANCOMYCIN TROUGH (test code=VANCT) 8.2 ug/mL 10-20 COMMENTS TO ZIGZAG STITCHER: PLS DRAW @1200 EXACTLYBASIC METABOLIC [id number] 13:14:00* Test Item Value Reference Range Comments SODIUM (test code=NA) 138 mmol/L 136-145 POTASSIUM (test code=K) 3.6 mmol/L 3.5-5.1 CHLORIDE (test code=CL) 106.0 mmol/L 98-107 CARBON DIOXIDE (test code=CO2) 25.0 mmol/L 21-32 ANION GAP (test code=GAP) 10.6 10-20 GLUCOSE (test code=GLU) 94 mg/dL 74-106 BLOOD UREA NITROGEN (test code=BUN) 5 mg/dL 7-18 GLOMERULAR FILTRATION RATE (test code=GFR) > 60 mL/min >=60 Estimated GFR by using Modified MDRD formula.Chronic kidney disease is defined as either kidney damageor GFR <60 mL/min/1.73 m2 for >3 months. CREATININE (test code=CREAT) 0.50 mg/dL 0.55-1.02 Note change in reference range due to change in reagent. BUN/CREATININE RATIO (test code=BUN/CREA) 10.0 10-20 CALCIUM (test code=CA) 8.2 mg/dL 8.5-10.1 BASIC METABOLIC [id number] 13:10:00* Test Item Value Reference Range Comments SODIUM (test code=NA) 138 mmol/L 136-145 POTASSIUM (test code=K) 3.6 mmol/L 3.5-5.1 CHLORIDE (test code=CL) 106.0 mmol/L 98-107 CARBON DIOXIDE (test code=CO2) mmol/L 21-32 ANION GAP (test code=GAP) 10-20 GLUCOSE (test code=GLU) mg/dL 74-106 BLOOD UREA NITROGEN (test code=BUN) mg/dL 7-18 GLOMERULAR FILTRATION RATE (test code=GFR) mL/min >=60 CREATININE (test code=CREAT) mg/dL 0.55-1.02 BUN/CREATININE RATIO (test code=BUN/CREA) 10-20 CALCIUM (test code=CA) mg/dL 8.5-10.1 CBC W/MANUAL [id number] 12:59:00* Test Item Value Reference Range Comments WHITE BLOOD CELL (test code=WBC) 20.6 K/mm3 4.5-12.5 RED BLOOD CELL (test code=RBC) 3.71 mill/mm3 3.7-5.2 HEMOGLOBIN (test code=HGB) 12.3 gram/dL 11.5-15.5 HEMATOCRIT (test code=HCT) 37.2 % 36.0-46.0 MEAN CELL VOLUME (test code=MCV) 100.3 fL 80-98 MEAN CELL HGB (test code=MCH) 33.2 picogram 27.0-33.0 MEAN CELL HGB CONCETRATION (test code=MCHC) 33.1 gram/dL 33.0-36.0 RED CELL DISTRIBUTION WIDTH (test code=RDW) 13.4 % 11.6-16.2 RED CELL DISTRIBUTION WIDTH SD (test code=RDW-SD) 49.5 fL 37.0-51.0 PLATELET COUNT (test code=PLT) 324 K/mm3 150-450 MEAN PLATELET VOLUME (test code=MPV) 8.7 fL 6.7-11.0 IMMATURE GRANULOCYTE % (test code=IG%) 2.6 % 0.0-5.0 NUCLEATED RBC % (test code=NRBC%) 0.0 % 0-0 NEUTROPHIL # (test code=NT#) 17.26 K/mm3 1.8-7.7 IMMATURE GRANULOCYTE # (test code=IG#) 0.54 x10 3/uL 0-0.03 LYMPHOCYTE # (test code=LY#) 0.76 K/mm3 1.0-5.0 MONOCYTE # (test code=MO#) 2.02 K/mm3 0-0.8 EOSINOPHIL # (test code=EO#) 0.01 K/mm3 0.0-0.5 BASOPHIL # (test code=BA#) 0.04 K/mm3 0.0-0.2 NUCLEATED RBC # (test code=NRBC#) 0.00 K/mm3 0.0-0.1 MANUAL DIFF REQUIRED (test code=MDIFF) YES STAIN ACCEPTABILITY (test code=STN ACCEPTABLE) STAIN ACCEPTABLE TOTAL CELLS COUNTED (test code=TCC) 115 #CELLS SEGMENTED NEUTROPHILS (test code=SEG) 84.4 % 39-69 BAND NEUTROPHIL (test code=BAND) 0 % 0-10 LYMPHOCYTE (test code=LYMPH) 5.2 % 25-55 REACTIVE LYMPH (test code=RELYMPH) 0 % MONOCYTE (test code=MON) 10.4 % 0-10 EOSINOPHIL (test code=EOS) 0 % 0.0-5.0 BASOPHIL (test code=BASO) 0 % 0-1.0 METAMYELOCYTE (test code=META) 0 % 0-0 MYELOCYTE (test code=MYELO) 0 % 0.0-0.0 PROMYELOCYTE (test code=PROM) 0 % 0-0 PLATELET ESTIMATE (test code=PLTEST) ADEQUATE PLATELET MORPHOLOGY (test code=PLTMORPH) NORMAL IMMATURE FORMS (test code=IMMAT) 0 % 0-0 CBC W/MANUAL [id number] 12:19:00* Test Item Value Reference Range Comments WHITE BLOOD CELL (test code=WBC) 20.6 K/mm3 4.5-12.5 RED BLOOD CELL (test code=RBC) 3.71 mill/mm3 3.7-5.2 HEMOGLOBIN (test code=HGB) 12.3 gram/dL 11.5-15.5 HEMATOCRIT (test code=HCT) 37.2 % 36.0-46.0 MEAN CELL VOLUME (test code=MCV) 100.3 fL 80-98 MEAN CELL HGB (test code=MCH) 33.2 picogram 27.0-33.0 MEAN CELL HGB CONCETRATION (test code=MCHC) 33.1 gram/dL 33.0-36.0 RED CELL DISTRIBUTION WIDTH (test code=RDW) 13.4 % 11.6-16.2 RED CELL DISTRIBUTION WIDTH SD (test code=RDW-SD) 49.5 fL 37.0-51.0 PLATELET COUNT (test code=PLT) 324 K/mm3 150-450 MEAN PLATELET VOLUME (test code=MPV) 8.7 fL 6.7-11.0 IMMATURE GRANULOCYTE % (test code=IG%) 2.6 % 0.0-5.0 NUCLEATED RBC % (test code=NRBC%) 0.0 % 0-0 NEUTROPHIL # (test code=NT#) 17.26 K/mm3 1.8-7.7 IMMATURE GRANULOCYTE # (test code=IG#) 0.54 x10 3/uL 0-0.03 LYMPHOCYTE # (test code=LY#) 0.76 K/mm3 1.0-5.0 MONOCYTE # (test code=MO#) 2.02 K/mm3 0-0.8 EOSINOPHIL # (test code=EO#) 0.01 K/mm3 0.0-0.5 BASOPHIL # (test code=BA#) 0.04 K/mm3 0.0-0.2 NUCLEATED RBC # (test code=NRBC#) 0.00 K/mm3 0.0-0.1 MANUAL DIFF REQUIRED (test code=MDIFF) YES STAIN ACCEPTABILITY (test code=STN ACCEPTABLE) TOTAL CELLS COUNTED (test code=TCC) #CELLS SEGMENTED NEUTROPHILS (test code=SEG) % 39-69 LYMPHOCYTE (test code=LYMPH) % 25-55 MONOCYTE (test code=MON) % 0-10 MORPHOLOGY COMMENT (test code=MOC) PLATELET ESTIMATE (test code=PLTEST) PLATELET MORPHOLOGY (test code=PLTMORPH) CBC W/MANUAL [id number] 12:16:00* Test Item Value Reference Range Comments WHITE BLOOD CELL (test code=WBC) 20.6 K/mm3 4.5-12.5 RED BLOOD CELL (test code=RBC) 3.71 mill/mm3 3.7-5.2 HEMOGLOBIN (test code=HGB) 12.3 gram/dL 11.5-15.5 HEMATOCRIT (test code=HCT) 37.2 % 36.0-46.0 MEAN CELL VOLUME (test code=MCV) 100.3 fL 80-98 MEAN CELL HGB (test code=MCH) 33.2 picogram 27.0-33.0 MEAN CELL HGB CONCETRATION (test code=MCHC) 33.1 gram/dL 33.0-36.0 RED CELL DISTRIBUTION WIDTH (test code=RDW) 13.4 % 11.6-16.2 RED CELL DISTRIBUTION WIDTH SD (test code=RDW-SD) 49.5 fL 37.0-51.0 PLATELET COUNT (test code=PLT) 324 K/mm3 150-450 MEAN PLATELET VOLUME (test code=MPV) 8.7 fL 6.7-11.0 IMMATURE GRANULOCYTE % (test code=IG%) 2.6 % 0.0-5.0 NUCLEATED RBC % (test code=NRBC%) 0.0 % 0-0 NEUTROPHIL # (test code=NT#) 17.26 K/mm3 1.8-7.7 IMMATURE GRANULOCYTE # (test code=IG#) 0.54 x10 3/uL 0-0.03 LYMPHOCYTE # (test code=LY#) 0.76 K/mm3 1.0-5.0 MONOCYTE # (test code=MO#) 2.02 K/mm3 0-0.8 EOSINOPHIL # (test code=EO#) 0.01 K/mm3 0.0-0.5 BASOPHIL # (test code=BA#) 0.04 K/mm3 0.0-0.2 NUCLEATED RBC # (test code=NRBC#) 0.00 K/mm3 0.0-0.1 MANUAL DIFF REQUIRED (test code=MDIFF) YES STAIN ACCEPTABILITY (test code=STN ACCEPTABLE) TOTAL CELLS COUNTED (test code=TCC) #CELLS SEGMENTED NEUTROPHILS (test code=SEG) % 39-69 LYMPHOCYTE (test code=LYMPH) % 25-55 MONOCYTE (test code=MON) % 0-10 EOSINOPHIL (test code=EOS) % 0.0-5.0 CABOT RINGS (test code=CAB) MORPHOLOGY COMMENT (test code=MOC) PLATELET ESTIMATE (test code=PLTEST) PLATELET MORPHOLOGY (test code=PLTMORPH) CBC W/MANUAL [id number] 12:16:00* Test Item Value Reference Range Comments WHITE BLOOD CELL (test code=WBC) 20.6 K/mm3 4.5-12.5 RED BLOOD CELL (test code=RBC) 3.71 mill/mm3 3.7-5.2 HEMOGLOBIN (test code=HGB) 12.3 gram/dL 11.5-15.5 HEMATOCRIT (test code=HCT) 37.2 % 36.0-46.0 MEAN CELL VOLUME (test code=MCV) 100.3 fL 80-98 MEAN CELL HGB (test code=MCH) 33.2 picogram 27.0-33.0 MEAN CELL HGB CONCETRATION (test code=MCHC) 33.1 gram/dL 33.0-36.0 RED CELL DISTRIBUTION WIDTH (test code=RDW) 13.4 % 11.6-16.2 RED CELL DISTRIBUTION WIDTH SD (test code=RDW-SD) 49.5 fL 37.0-51.0 PLATELET COUNT (test code=PLT) 324 K/mm3 150-450 MEAN PLATELET VOLUME (test code=MPV) 8.7 fL 6.7-11.0 IMMATURE GRANULOCYTE % (test code=IG%) 2.6 % 0.0-5.0 NUCLEATED RBC % (test code=NRBC%) 0.0 % 0-0 NEUTROPHIL # (test code=NT#) 17.26 K/mm3 1.8-7.7 IMMATURE GRANULOCYTE # (test code=IG#) 0.54 x10 3/uL 0-0.03 LYMPHOCYTE # (test code=LY#) 0.76 K/mm3 1.0-5.0 MONOCYTE # (test code=MO#) 2.02 K/mm3 0-0.8 EOSINOPHIL # (test code=EO#) 0.01 K/mm3 0.0-0.5 BASOPHIL # (test code=BA#) 0.04 K/mm3 0.0-0.2 NUCLEATED RBC # (test code=NRBC#) 0.00 K/mm3 0.0-0.1 MANUAL DIFF REQUIRED (test code=MDIFF) YES STAIN ACCEPTABILITY (test code=STN ACCEPTABLE) TOTAL CELLS COUNTED (test code=TCC) #CELLS SEGMENTED NEUTROPHILS (test code=SEG) % 39-69 LYMPHOCYTE (test code=LYMPH) % 25-55 MONOCYTE (test code=MON) % 0-10 EOSINOPHIL (test code=EOS) % 0.0-5.0 CABOT RINGS (test code=CAB) MORPHOLOGY COMMENT (test code=MOC) PLATELET ESTIMATE (test code=PLTEST) PLATELET MORPHOLOGY (test code=PLTMORPH) CBC W/MANUAL [id number] 12:16:00* Test Item Value Reference Range Comments WHITE BLOOD CELL (test code=WBC) 20.6 K/mm3 4.5-12.5 RED BLOOD CELL (test code=RBC) 3.71 mill/mm3 3.7-5.2 HEMOGLOBIN (test code=HGB) 12.3 gram/dL 11.5-15.5 HEMATOCRIT (test code=HCT) 37.2 % 36.0-46.0 MEAN CELL VOLUME (test code=MCV) 100.3 fL 80-98 MEAN CELL HGB (test code=MCH) 33.2 picogram 27.0-33.0 MEAN CELL HGB CONCETRATION (test code=MCHC) 33.1 gram/dL 33.0-36.0 RED CELL DISTRIBUTION WIDTH (test code=RDW) 13.4 % 11.6-16.2 RED CELL DISTRIBUTION WIDTH SD (test code=RDW-SD) 49.5 fL 37.0-51.0 PLATELET COUNT (test code=PLT) 324 K/mm3 150-450 MEAN PLATELET VOLUME (test code=MPV) 8.7 fL 6.7-11.0 IMMATURE GRANULOCYTE % (test code=IG%) 2.6 % 0.0-5.0 NUCLEATED RBC % (test code=NRBC%) 0.0 % 0-0 NEUTROPHIL # (test code=NT#) 17.26 K/mm3 1.8-7.7 IMMATURE GRANULOCYTE # (test code=IG#) 0.54 x10 3/uL 0-0.03 LYMPHOCYTE # (test code=LY#) 0.76 K/mm3 1.0-5.0 MONOCYTE # (test code=MO#) 2.02 K/mm3 0-0.8 EOSINOPHIL # (test code=EO#) 0.01 K/mm3 0.0-0.5 BASOPHIL # (test code=BA#) 0.04 K/mm3 0.0-0.2 NUCLEATED RBC # (test code=NRBC#) 0.00 K/mm3 0.0-0.1 MANUAL DIFF REQUIRED (test code=MDIFF) YES STAIN ACCEPTABILITY (test code=STN ACCEPTABLE) TOTAL CELLS COUNTED (test code=TCC) #CELLS SEGMENTED NEUTROPHILS (test code=SEG) % 39-69 LYMPHOCYTE (test code=LYMPH) % 25-55 MONOCYTE (test code=MON) % 0-10 EOSINOPHIL (test code=EOS) % 0.0-5.0 MORPHOLOGY COMMENT (test code=MOC) PLATELET ESTIMATE (test code=PLTEST) PLATELET MORPHOLOGY (test code=PLTMORPH) CBC W/MANUAL [id number] 12:16:00* Test Item Value Reference Range Comments WHITE BLOOD CELL (test code=WBC) 20.6 K/mm3 4.5-12.5 RED BLOOD CELL (test code=RBC) 3.71 mill/mm3 3.7-5.2 HEMOGLOBIN (test code=HGB) 12.3 gram/dL 11.5-15.5 HEMATOCRIT (test code=HCT) 37.2 % 36.0-46.0 MEAN CELL VOLUME (test code=MCV) 100.3 fL 80-98 MEAN CELL HGB (test code=MCH) 33.2 picogram 27.0-33.0 MEAN CELL HGB CONCETRATION (test code=MCHC) 33.1 gram/dL 33.0-36.0 RED CELL DISTRIBUTION WIDTH (test code=RDW) 13.4 % 11.6-16.2 RED CELL DISTRIBUTION WIDTH SD (test code=RDW-SD) 49.5 fL 37.0-51.0 PLATELET COUNT (test code=PLT) 324 K/mm3 150-450 MEAN PLATELET VOLUME (test code=MPV) 8.7 fL 6.7-11.0 IMMATURE GRANULOCYTE % (test code=IG%) 2.6 % 0.0-5.0 NUCLEATED RBC % (test code=NRBC%) 0.0 % 0-0 NEUTROPHIL # (test code=NT#) 17.26 K/mm3 1.8-7.7 IMMATURE GRANULOCYTE # (test code=IG#) 0.54 x10 3/uL 0-0.03 LYMPHOCYTE # (test code=LY#) 0.76 K/mm3 1.0-5.0 MONOCYTE # (test code=MO#) 2.02 K/mm3 0-0.8 EOSINOPHIL # (test code=EO#) 0.01 K/mm3 0.0-0.5 BASOPHIL # (test code=BA#) 0.04 K/mm3 0.0-0.2 NUCLEATED RBC # (test code=NRBC#) 0.00 K/mm3 0.0-0.1 MANUAL DIFF REQUIRED (test code=MDIFF) YES STAIN ACCEPTABILITY (test code=STN ACCEPTABLE) TOTAL CELLS COUNTED (test code=TCC) #CELLS SEGMENTED NEUTROPHILS (test code=SEG) % 39-69 LYMPHOCYTE (test code=LYMPH) % 25-55 MONOCYTE (test code=MON) % 0-10 EOSINOPHIL (test code=EOS) % 0.0-5.0 CABOT RINGS (test code=CAB) MORPHOLOGY COMMENT (test code=MOC) PLATELET ESTIMATE (test code=PLTEST) PLATELET MORPHOLOGY (test code=PLTMORPH) PLEURAL FLD CELL [id number] 10:17:00* Test Item Value Reference Range Comments FLUID WBC AUTO (test code=WBCFLA) 26425 cells/uL FLUID RBC AUTO (test code=RBCFLA) 5000 cells/uL FLUID TOTAL CELLS (test code=TCFL) 73895 cells/uL >0 Fluid WBC RBC Type cells/uL cells/uL CSF (0-5) n/a Peritoneal n/a n/a Pleural n/a n/a Synovial <200 n/a CSF (0-30) n/a PLEURAL FLD COLOR (test code=COLPL) YELLOW PLEURAL FLD APPEARANCE (test code=APPPL) CLOUDY PLEURAL FLD POLY (test code=POLYPL) 84.0 % PLEURAL FLD LYMPHOCYTE (test code=LYMPHPL) 6.0 % PLEURAL FLD MACROPHAGE (test code=MACPL) 10.0 % PLEURAL FLD DIFF COMMENT (test code=COMPL) PATH. TO REVIEW TOTAL CELLS COUNTED ON DIFF (test code=TOTCELLFL) 100 cells REVIEWED BY (test code=REVIEW) ALAN KELLER PATHOLOGIST REVIEWED BY ALAN LEYVA M.D.12/23/18 SPECIMEN COMMENTS: LEFT PLEURAL FLUIDPLEURAL FLD [id number] 10:17:00* Test Item Value Reference Range Comments PLEURAL FLD PH (test code=PHPL) 6.0 SPECIMEN COMMENTS: LEFT PLEURAL FLUIDPLEURAL FLD [id number] 10:17:00* Test Item Value Reference Range Comments PLEURAL FLD GLUCOSE (test code=GLUPL) < 1 MG/DL SPECIMEN COMMENTS: LEFT PLEURAL FLUIDPLEURAL FLD TOTAL [id number] 10:17:00* Test Item Value Reference Range Comments PLEURAL FLD TOTAL PROTEIN (test code=PROTPL) 4.8 gram/dL SPECIMEN COMMENTS: LEFT PLEURAL FLUIDPLEURAL FLD [id number] 10:17:00* Test Item Value Reference Range Comments PLEURAL FLD LDH (test code=LDHPL) 630 IUnit/L SPECIMEN COMMENTS: LEFT PLEURAL FLUIDPLEURAL FLD [id number] 10:17:00 * Test Item Value Reference Range Comments PLEURAL FLD CHOLESTEROL (test code=CHOLPL) 82 MG/DL SPECIMEN COMMENTS: LEFT PLEURAL FLUIDPLEURAL FLD [id number] 10:17:00* Test Item Value Reference Range Comments PLEURAL FLD TRIGLYCERIDE (test code=TRIGPL) 41 MG/DL SPECIMEN COMMENTS: LEFT PLEURAL FLUIDPLEURAL FLD CELL [id number] 20:35:00* Test Item Value Reference Range Comments FLUID WBC AUTO (test code=WBCFLA) 16828 cells/uL FLUID RBC AUTO (test code=RBCFLA) 5000 cells/uL FLUID TOTAL CELLS (test code=TCFL) 04075 cells/uL >0 Fluid WBC RBC Type cells/uL cells/uL CSF (0-5) n/a Peritoneal n/a n/a Pleural n/a n/a Synovial <200 n/a CSF (0-30) n/a PLEURAL FLD COLOR (test code=COLPL) YELLOW PLEURAL FLD APPEARANCE (test code=APPPL) CLOUDY PLEURAL FLD POLY (test code=POLYPL) 84.0 % PLEURAL FLD LYMPHOCYTE (test code=LYMPHPL) 6.0 % PLEURAL FLD MACROPHAGE (test code=MACPL) 10.0 % TOTAL CELLS COUNTED ON DIFF (test code=TOTCELLFL) 100 cells REVIEWED BY (test code=REVIEW) PATHOLOGIST SPECIMEN COMMENTS: LEFT PLEURAL FLUIDPLEURAL FLD [id number] 20:35:00* Test Item Value Reference Range Comments PLEURAL FLD PH (test code=PHPL) 6.0 SPECIMEN COMMENTS: LEFT PLEURAL FLUIDPLEURAL FLD [id number] 20:35:00* Test Item Value Reference Range Comments PLEURAL FLD GLUCOSE (test code=GLUPL) < 1 MG/DL SPECIMEN COMMENTS: LEFT PLEURAL FLUIDPLEURAL FLD TOTAL [id number] 20:35:00* Test Item Value Reference Range Comments PLEURAL FLD TOTAL PROTEIN (test code=PROTPL) 4.8 gram/dL SPECIMEN COMMENTS: LEFT PLEURAL FLUIDPLEURAL FLD [id number] 20:35:00* Test Item Value Reference Range Comments PLEURAL FLD LDH (test code=LDHPL) 630 IUnit/L SPECIMEN COMMENTS: LEFT PLEURAL FLUIDPLEURAL FLD [id number] 20:35:00 * Test Item Value Reference Range Comments PLEURAL FLD CHOLESTEROL (test code=CHOLPL) 82 MG/DL SPECIMEN COMMENTS: LEFT PLEURAL FLUIDPLEURAL FLD [id number] 20:35:00* Test Item Value Reference Range Comments PLEURAL FLD TRIGLYCERIDE (test code=TRIGPL) 41 MG/DL SPECIMEN COMMENTS: LEFT PLEURAL FLUIDPLEURAL FLD CELL [id number] 20:35:00* Test Item Value Reference Range Comments FLUID WBC AUTO (test code=WBCFLA) 90150 cells/uL FLUID RBC AUTO (test code=RBCFLA) 5000 cells/uL FLUID TOTAL CELLS (test code=TCFL) 38931 cells/uL >0 Fluid WBC RBC Type cells/uL cells/uL CSF (0-5) n/a Peritoneal n/a n/a Pleural n/a n/a Synovial <200 n/a CSF (0-30) n/a PLEURAL FLD COLOR (test code=COLPL) YELLOW PLEURAL FLD APPEARANCE (test code=APPPL) CLOUDY PLEURAL FLD POLY (test code=POLYPL) 84.0 % PLEURAL FLD LYMPHOCYTE (test code=LYMPHPL) 6.0 % PLEURAL FLD MACROPHAGE (test code=MACPL) 10.0 % PLEURAL FLD DIFF COMMENT (test code=COMPL) PATH. TO REVIEW TOTAL CELLS COUNTED ON DIFF (test code=TOTCELLFL) 100 cells REVIEWED BY (test code=REVIEW) PATHOLOGIST SPECIMEN COMMENTS: LEFT PLEURAL FLUIDPLEURAL FLD [id number] 20:35:00* Test Item Value Reference Range Comments PLEURAL FLD PH (test code=PHPL) 6.0 SPECIMEN COMMENTS: LEFT PLEURAL FLUIDPLEURAL FLD [id number] 20:35:00* Test Item Value Reference Range Comments PLEURAL FLD GLUCOSE (test code=GLUPL) < 1 MG/DL SPECIMEN COMMENTS: LEFT PLEURAL FLUIDPLEURAL FLD TOTAL [id number] 20:35:00* Test Item Value Reference Range Comments PLEURAL FLD TOTAL PROTEIN (test code=PROTPL) 4.8 gram/dL SPECIMEN COMMENTS: LEFT PLEURAL FLUIDPLEURAL FLD [id number] 20:35:00* Test Item Value Reference Range Comments PLEURAL FLD LDH (test code=LDHPL) 630 IUnit/L SPECIMEN COMMENTS: LEFT PLEURAL FLUIDPLEURAL FLD [id number] 20:35:00 * Test Item Value Reference Range Comments PLEURAL FLD CHOLESTEROL (test code=CHOLPL) 82 MG/DL SPECIMEN COMMENTS: LEFT PLEURAL FLUIDPLEURAL FLD [id number] 20:35:00* Test Item Value Reference Range Comments PLEURAL FLD TRIGLYCERIDE (test code=TRIGPL) 41 MG/DL SPECIMEN COMMENTS: LEFT PLEURAL FLUIDPLEURAL FLD CELL [id number] 20:05:00* Test Item Value Reference Range Comments FLUID WBC AUTO (test code=WBCFLA) 70877 cells/uL FLUID RBC AUTO (test code=RBCFLA) 5000 cells/uL FLUID TOTAL CELLS (test code=TCFL) 94997 cells/uL >0 Fluid WBC RBC Type cells/uL cells/uL CSF (0-5) n/a Peritoneal n/a n/a Pleural n/a n/a Synovial <200 n/a CSF (0-30) n/a PLEURAL FLD COLOR (test code=COLPL) YELLOW PLEURAL FLD APPEARANCE (test code=APPPL) CLOUDY PLEURAL FLD WBC (test code=WBCPL) per uL 0-1000 PLEURAL FLD RBC (test code=RBCPL) per uL 0-50 TOTAL CELLS COUNTED ON DIFF (test code=TOTCELLFL) cells REVIEWED BY (test code=REVIEW) PATHOLOGIST SPECIMEN COMMENTS: LEFT PLEURAL FLUIDPLEURAL FLD [id number] 20:05:00* Test Item Value Reference Range Comments PLEURAL FLD PH (test code=PHPL) 6.0 SPECIMEN COMMENTS: LEFT PLEURAL FLUIDPLEURAL FLD [id number] 20:05:00* Test Item Value Reference Range Comments PLEURAL FLD GLUCOSE (test code=GLUPL) < 1 MG/DL SPECIMEN COMMENTS: LEFT PLEURAL FLUIDPLEURAL FLD TOTAL [id number] 20:05:00* Test Item Value Reference Range Comments PLEURAL FLD TOTAL PROTEIN (test code=PROTPL) 4.8 gram/dL SPECIMEN COMMENTS: LEFT PLEURAL FLUIDPLEURAL FLD [id number] 20:05:00* Test Item Value Reference Range Comments PLEURAL FLD LDH (test code=LDHPL) 630 IUnit/L SPECIMEN COMMENTS: LEFT PLEURAL FLUIDPLEURAL FLD [id number] 20:05:00 * Test Item Value Reference Range Comments PLEURAL FLD CHOLESTEROL (test code=CHOLPL) 82 MG/DL SPECIMEN COMMENTS: LEFT PLEURAL FLUIDPLEURAL FLD [id number] 20:05:00* Test Item Value Reference Range Comments PLEURAL FLD TRIGLYCERIDE (test code=TRIGPL) 41 MG/DL SPECIMEN COMMENTS: LEFT PLEURAL FLUIDPLEURAL FLD CELL [id number] 19:50:00* Test Item Value Reference Range Comments FLUID WBC AUTO (test code=WBCFLA) 85313 cells/uL FLUID RBC AUTO (test code=RBCFLA) 5000 cells/uL FLUID TOTAL CELLS (test code=TCFL) 63726 cells/uL >0 Fluid WBC RBC Type cells/uL cells/uL CSF (0-5) n/a Peritoneal n/a n/a Pleural n/a n/a Synovial <200 n/a CSF (0-30) n/a PLEURAL FLD COLOR (test code=COLPL) YELLOW PLEURAL FLD APPEARANCE (test code=APPPL) CLOUDY PLEURAL FLD WBC (test code=WBCPL) per uL 0-1000 PLEURAL FLD RBC (test code=RBCPL) per uL 0-50 TOTAL CELLS COUNTED ON DIFF (test code=TOTCELLFL) cells REVIEWED BY (test code=REVIEW) PATHOLOGIST SPECIMEN COMMENTS: LEFT PLEURAL FLUIDPLEURAL FLD [id number] 19:50:00* Test Item Value Reference Range Comments PLEURAL FLD PH (test code=PHPL) 6.0 SPECIMEN COMMENTS: LEFT PLEURAL FLUIDPLEURAL FLD [id number] 19:50:00* Test Item Value Reference Range Comments PLEURAL FLD GLUCOSE (test code=GLUPL) MG/DL SPECIMEN COMMENTS: LEFT PLEURAL FLUIDPLEURAL FLD TOTAL [id number] 19:50:00* Test Item Value Reference Range Comments PLEURAL FLD TOTAL PROTEIN (test code=PROTPL) 4.8 gram/dL SPECIMEN COMMENTS: LEFT PLEURAL FLUIDPLEURAL FLD [id number] 19:50:00* Test Item Value Reference Range Comments PLEURAL FLD LDH (test code=LDHPL) 630 IUnit/L SPECIMEN COMMENTS: LEFT PLEURAL FLUIDPLEURAL FLD [id number] 19:50:00 * Test Item Value Reference Range Comments PLEURAL FLD CHOLESTEROL (test code=CHOLPL) 82 MG/DL SPECIMEN COMMENTS: LEFT PLEURAL FLUIDPLEURAL FLD [id number] 19:50:00* Test Item Value Reference Range Comments PLEURAL FLD TRIGLYCERIDE (test code=TRIGPL) 41 MG/DL SPECIMEN COMMENTS: LEFT PLEURAL [id number] 19:06:00* Test Item Value Reference Range Comments TROPONIN-I (test code=TROPI) <0.015 ng/mL 0-0.[id number] 18:52:00* Test Item Value Reference Range Comments FLUID WBC AUTO (test code=WBCFLA) 06502 cells/uL FLUID RBC AUTO (test code=RBCFLA) 5000 cells/uL FLUID TOTAL CELLS (test code=TCFL) 46680 cells/uL >0 Fluid WBC RBC Type cells/uL cells/uL CSF (0-5) n/a Peritoneal n/a n/a Pleural n/a n/a Synovial <200 n/a CSF (0-30) n/a PLEURAL FLD COLOR (test code=COLPL) YELLOW PLEURAL FLD APPEARANCE (test code=APPPL) CLOUDY PLEURAL FLD WBC (test code=WBCPL) per uL 0-1000 PLEURAL FLD RBC (test code=RBCPL) per uL 0-50 TOTAL CELLS COUNTED ON DIFF (test code=TOTCELLFL) cells REVIEWED BY (test code=REVIEW) PATHOLOGIST SPECIMEN COMMENTS: LEFT PLEURAL FLUIDPLEURAL FLD [id number] 18:52:00* Test Item Value Reference Range Comments PLEURAL FLD PH (test code=PHPL) SPECIMEN COMMENTS: LEFT PLEURAL FLUIDPLEURAL FLD [id number] 18:52:00* Test Item Value Reference Range Comments PLEURAL FLD GLUCOSE (test code=GLUPL) MG/DL SPECIMEN COMMENTS: LEFT PLEURAL FLUIDPLEURAL FLD TOTAL [id number] 18:52:00* Test Item Value Reference Range Comments PLEURAL FLD TOTAL PROTEIN (test code=PROTPL) 4.8 gram/dL SPECIMEN COMMENTS: LEFT PLEURAL FLUIDPLEURAL FLD [id number] 18:52:00* Test Item Value Reference Range Comments PLEURAL FLD LDH (test code=LDHPL) 630 IUnit/L SPECIMEN COMMENTS: LEFT PLEURAL FLUIDPLEURAL FLD [id number] 18:52:00 * Test Item Value Reference Range Comments PLEURAL FLD CHOLESTEROL (test code=CHOLPL) 82 MG/DL SPECIMEN COMMENTS: LEFT PLEURAL FLUIDPLEURAL FLD [id number] 18:52:00* Test Item Value Reference Range Comments PLEURAL FLD TRIGLYCERIDE (test code=TRIGPL) 41 MG/DL SPECIMEN COMMENTS: LEFT PLEURAL FLUIDPLEURAL FLD CELL [id number] 18:10:00* Test Item Value Reference Range Comments FLUID WBC AUTO (test code=WBCFLA) 99041 cells/uL FLUID RBC AUTO (test code=RBCFLA) 5000 cells/uL FLUID TOTAL CELLS (test code=TCFL) 13513 cells/uL >0 Fluid WBC RBC Type cells/uL cells/uL CSF (0-5) n/a Peritoneal n/a n/a Pleural n/a n/a Synovial <200 n/a CSF (0-30) n/a PLEURAL FLD COLOR (test code=COLPL) YELLOW PLEURAL FLD APPEARANCE (test code=APPPL) CLOUDY PLEURAL FLD WBC (test code=WBCPL) per uL 0-1000 PLEURAL FLD RBC (test code=RBCPL) per uL 0-50 TOTAL CELLS COUNTED ON DIFF (test code=TOTCELLFL) cells REVIEWED BY (test code=REVIEW) PATHOLOGIST SPECIMEN COMMENTS: LEFT PLEURAL FLUIDPLEURAL FLD [id number] 18:10:00* Test Item Value Reference Range Comments PLEURAL FLD PH (test code=PHPL) SPECIMEN COMMENTS: LEFT PLEURAL FLUIDPLEURAL FLD [id number] 18:10:00* Test Item Value Reference Range Comments PLEURAL FLD GLUCOSE (test code=GLUPL) MG/DL SPECIMEN COMMENTS: LEFT PLEURAL FLUIDPLEURAL FLD TOTAL [id number] 18:10:00* Test Item Value Reference Range Comments PLEURAL FLD TOTAL PROTEIN (test code=PROTPL) gram/dL SPECIMEN COMMENTS: LEFT PLEURAL FLUIDPLEURAL FLD [id number] 18:10:00* Test Item Value Reference Range Comments PLEURAL FLD LDH (test code=LDHPL) IUnit/L SPECIMEN COMMENTS: LEFT PLEURAL FLUIDPLEURAL FLD [id number] 18:10:00 * Test Item Value Reference Range Comments PLEURAL FLD CHOLESTEROL (test code=CHOLPL) MG/DL SPECIMEN COMMENTS: LEFT PLEURAL FLUIDPLEURAL FLD [id number] 18:10:00* Test Item Value Reference Range Comments PLEURAL FLD TRIGLYCERIDE (test code=TRIGPL) MG/DL SPECIMEN COMMENTS: LEFT PLEURAL FLUIDPLEURAL FLD CELL [id number] 18:04:00* Test Item Value Reference Range Comments FLUID TOTAL CELLS (test code=TCFL) cells/uL >0 PLEURAL FLD COLOR (test code=COLPL) YELLOW PLEURAL FLD APPEARANCE (test code=APPPL) CLOUDY PLEURAL FLD WBC (test code=WBCPL) per uL 0-1000 PLEURAL FLD RBC (test code=RBCPL) per uL 0-50 TOTAL CELLS COUNTED ON DIFF (test code=TOTCELLFL) cells REVIEWED BY (test code=REVIEW) PATHOLOGIST SPECIMEN COMMENTS: LEFT PLEURAL FLUIDPLEURAL FLD [id number] 18:04:00* Test Item Value Reference Range Comments PLEURAL FLD PH (test code=PHPL) SPECIMEN COMMENTS: LEFT PLEURAL FLUIDPLEURAL FLD [id number] 18:04:00* Test Item Value Reference Range Comments PLEURAL FLD GLUCOSE (test code=GLUPL) MG/DL SPECIMEN COMMENTS: LEFT PLEURAL FLUIDPLEURAL FLD TOTAL [id number] 18:04:00* Test Item Value Reference Range Comments PLEURAL FLD TOTAL PROTEIN (test code=PROTPL) gram/dL SPECIMEN COMMENTS: LEFT PLEURAL FLUIDPLEURAL FLD [id number] 18:04:00* Test Item Value Reference Range Comments PLEURAL FLD LDH (test code=LDHPL) IUnit/L SPECIMEN COMMENTS: LEFT PLEURAL FLUIDPLEURAL FLD [id number] 18:04:00 * Test Item Value Reference Range Comments PLEURAL FLD CHOLESTEROL (test code=CHOLPL) MG/DL SPECIMEN COMMENTS: LEFT PLEURAL FLUIDPLEURAL FLD [id number] 18:04:00 * Test Item Value Reference Range Comments PLEURAL FLD TRIGLYCERIDE (test code=TRIGPL) MG/DL SPECIMEN COMMENTS: LEFT PLEURAL FLUID- XR CHEST 1 [id number] 17:27:00 FAX: Meagan Cooper MD [phone] [place]: B St: ADM Name: BLADIMIR DYE [facility] : [birth year] Age/S: 43/F [address] [facility] Unit #: [id number] Loc: [place] [address] Phys: Srinivas Cordero MD Acct: [id number] Dis Date: Status: ADM IN PHONE #: [phone] Exam Date: 12/22/2018 171 FAX #: [phone] Reason: S/P LEFT THORACENTESIS EXAMS: CPT CODE: [id number] XR CHEST 1 V 73733 HISTORY: Post thoracentesis on the left. COMPARISON: Same day. Multiple loculated pleu ral fluid collections on the left side. No pneumothorax. Elevated left h emidiaphragm. Right lung is clear. Cardiomegaly. IMPRESS ION: No pneumothorax. Multiple loculated pleural collections on the left side noted. Dependent changes with elevated left hemidiaphr agm. at 172 7 Reported and signed by: Jh Oakes M.D. CC: Meagan Betancourt MD Tech nologist: LIVIA LUCERO; Jericho Ordoñez, RT(R Trnscrd Date/Ti me/By: 12/22/2018 (8548) : By: [email or web address] Orig Print D/T: S: 12/22/2018 (7547) PAGE 1 Signed Report PROTHROMBIN [id number] 14:47:00* Test Item Value Reference Range Comments PROTHROMBIN TIME PATIENT (test code=PTP) 15.0 seconds 9.0-14.0 INTERNATIONAL NORMAL RATIO (test code=INR) 1.3 0.8-1.2 The therapeutic range for oral anticoagulant therapy formost indications is an international normalized ratio (INR)of between 2.0 and 3.0. 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 NSPECIMEN COMMENTS: FOR PROCEDURE TODAY THROMBOPLASTIN TIME [id number] 14:47:00* Test Item Value Reference Range Comments THROMBOPLASTIN TIME PARTIAL (test code=PTT) 31.4 seconds 25.0-36.5 IS PATIENT ON ANTICOAGULANTS? NSPECIMEN COMMENTS: FOR PROCEDURE TODAYCBC W/MANUAL [id number] 14:12:00* Test Item Value Reference Range Comments WHITE BLOOD CELL (test code=WBC) 18.2 K/mm3 4.5-12.5 RED BLOOD CELL (test code=RBC) 3.63 mill/mm3 3.7-5.2 HEMOGLOBIN (test code=HGB) 12.0 gram/dL 11.5-15.5 HEMATOCRIT (test code=HCT) 36.5 % 36.0-46.0 MEAN CELL VOLUME (test code=MCV) 100.6 fL 80-98 MEAN CELL HGB (test code=MCH) 33.1 picogram 27.0-33.0 MEAN CELL HGB CONCETRATION (test code=MCHC) 32.9 gram/dL 33.0-36.0 RED CELL DISTRIBUTION WIDTH (test code=RDW) 13.3 % 11.6-16.2 RED CELL DISTRIBUTION WIDTH SD (test code=RDW-SD) 49.7 fL 37.0-51.0 PLATELET COUNT (test code=PLT) 311 K/mm3 150-450 RESULT VERIFIED BY REPEAT ANALYSIS MEAN PLATELET VOLUME (test code=MPV) 8.8 fL 6.7-11.0 IMMATURE GRANULOCYTE % (test code=IG%) 0.6 % 0.0-5.0 NUCLEATED RBC % (test code=NRBC%) 0.0 % 0-0 NEUTROPHIL # (test code=NT#) 15.12 K/mm3 1.8-7.7 IMMATURE GRANULOCYTE # (test code=IG#) 0.11 x10 3/uL 0-0.03 LYMPHOCYTE # (test code=LY#) 0.92 K/mm3 1.0-5.0 MONOCYTE # (test code=MO#) 1.97 K/mm3 0-0.8 EOSINOPHIL # (test code=EO#) 0.02 K/mm3 0.0-0.5 BASOPHIL # (test code=BA#) 0.05 K/mm3 0.0-0.2 NUCLEATED RBC # (test code=NRBC#) 0.00 K/mm3 0.0-0.1 MANUAL DIFF REQUIRED (test code=MDIFF) YES STAIN ACCEPTABILITY (test code=STN ACCEPTABLE) STAIN ACCEPTABLE TOTAL CELLS COUNTED (test code=TCC) 115 #CELLS SEGMENTED NEUTROPHILS (test code=SEG) 86.1 % 39-69 BAND NEUTROPHIL (test code=BAND) 2.6 % 0-10 LYMPHOCYTE (test code=LYMPH) 4.3 % 25-55 REACTIVE LYMPH (test code=RELYMPH) 0 % MONOCYTE (test code=MON) 7.0 % 0-10 EOSINOPHIL (test code=EOS) 0 % 0.0-5.0 BASOPHIL (test code=BASO) 0 % 0-1.0 METAMYELOCYTE (test code=META) 0 % 0-0 MYELOCYTE (test code=MYELO) 0 % 0.0-0.0 PROMYELOCYTE (test code=PROM) 0 % 0-0 POIKILOCYTOSIS (test code=POIK) 1+ ANISOCYTOSIS (test code=ANISO) 1+ MACROCYTOSIS (test code=MACR) 1+ PLATELET ESTIMATE (test code=PLTEST) ADEQUATE PLATELET MORPHOLOGY (test code=PLTMORPH) NORMAL IMMATURE FORMS (test code=IMMAT) 0 % 0-0 CBC W/MANUAL [id number] 13:56:00* Test Item Value Reference Range Comments WHITE BLOOD CELL (test code=WBC) 18.2 K/mm3 4.5-12.5 RED BLOOD CELL (test code=RBC) 3.63 mill/mm3 3.7-5.2 HEMOGLOBIN (test code=HGB) 12.0 gram/dL 11.5-15.5 HEMATOCRIT (test code=HCT) 36.5 % 36.0-46.0 MEAN CELL VOLUME (test code=MCV) 100.6 fL 80-98 MEAN CELL HGB (test code=MCH) 33.1 picogram 27.0-33.0 MEAN CELL HGB CONCETRATION (test code=MCHC) 32.9 gram/dL 33.0-36.0 RED CELL DISTRIBUTION WIDTH (test code=RDW) 13.3 % 11.6-16.2 RED CELL DISTRIBUTION WIDTH SD (test code=RDW-SD) 49.7 fL 37.0-51.0 PLATELET COUNT (test code=PLT) 311 K/mm3 150-450 RESULT VERIFIED BY REPEAT ANALYSIS MEAN PLATELET VOLUME (test code=MPV) 8.8 fL 6.7-11.0 IMMATURE GRANULOCYTE % (test code=IG%) 0.6 % 0.0-5.0 NUCLEATED RBC % (test code=NRBC%) 0.0 % 0-0 NEUTROPHIL # (test code=NT#) 15.12 K/mm3 1.8-7.7 IMMATURE GRANULOCYTE # (test code=IG#) 0.11 x10 3/uL 0-0.03 LYMPHOCYTE # (test code=LY#) 0.92 K/mm3 1.0-5.0 MONOCYTE # (test code=MO#) 1.97 K/mm3 0-0.8 EOSINOPHIL # (test code=EO#) 0.02 K/mm3 0.0-0.5 BASOPHIL # (test code=BA#) 0.05 K/mm3 0.0-0.2 NUCLEATED RBC # (test code=NRBC#) 0.00 K/mm3 0.0-0.1 MANUAL DIFF REQUIRED (test code=MDIFF) YES STAIN ACCEPTABILITY (test code=STN ACCEPTABLE) TOTAL CELLS COUNTED (test code=TCC) #CELLS SEGMENTED NEUTROPHILS (test code=SEG) % 39-69 LYMPHOCYTE (test code=LYMPH) % 25-55 MONOCYTE (test code=MON) % 0-10 EOSINOPHIL (test code=EOS) % 0.0-5.0 CABOT RINGS (test code=CAB) MORPHOLOGY COMMENT (test code=MOC) PLATELET ESTIMATE (test code=PLTEST) PLATELET MORPHOLOGY (test code=PLTMORPH) CBC W/MANUAL [id number] 13:56:00* Test Item Value Reference Range Comments WHITE BLOOD CELL (test code=WBC) 18.2 K/mm3 4.5-12.5 RED BLOOD CELL (test code=RBC) 3.63 mill/mm3 3.7-5.2 HEMOGLOBIN (test code=HGB) 12.0 gram/dL 11.5-15.5 HEMATOCRIT (test code=HCT) 36.5 % 36.0-46.0 MEAN CELL VOLUME (test code=MCV) 100.6 fL 80-98 MEAN CELL HGB (test code=MCH) 33.1 picogram 27.0-33.0 MEAN CELL HGB CONCETRATION (test code=MCHC) 32.9 gram/dL 33.0-36.0 RED CELL DISTRIBUTION WIDTH (test code=RDW) 13.3 % 11.6-16.2 RED CELL DISTRIBUTION WIDTH SD (test code=RDW-SD) 49.7 fL 37.0-51.0 PLATELET COUNT (test code=PLT) 311 K/mm3 150-450 RESULT VERIFIED BY REPEAT ANALYSIS MEAN PLATELET VOLUME (test code=MPV) 8.8 fL 6.7-11.0 IMMATURE GRANULOCYTE % (test code=IG%) 0.6 % 0.0-5.0 NUCLEATED RBC % (test code=NRBC%) 0.0 % 0-0 NEUTROPHIL # (test code=NT#) 15.12 K/mm3 1.8-7.7 IMMATURE GRANULOCYTE # (test code=IG#) 0.11 x10 3/uL 0-0.03 LYMPHOCYTE # (test code=LY#) 0.92 K/mm3 1.0-5.0 MONOCYTE # (test code=MO#) 1.97 K/mm3 0-0.8 EOSINOPHIL # (test code=EO#) 0.02 K/mm3 0.0-0.5 BASOPHIL # (test code=BA#) 0.05 K/mm3 0.0-0.2 NUCLEATED RBC # (test code=NRBC#) 0.00 K/mm3 0.0-0.1 MANUAL DIFF REQUIRED (test code=MDIFF) YES STAIN ACCEPTABILITY (test code=STN ACCEPTABLE) TOTAL CELLS COUNTED (test code=TCC) #CELLS SEGMENTED NEUTROPHILS (test code=SEG) % 39-69 LYMPHOCYTE (test code=LYMPH) % 25-55 MONOCYTE (test code=MON) % 0-10 EOSINOPHIL (test code=EOS) % 0.0-5.0 MORPHOLOGY COMMENT (test code=MOC) PLATELET ESTIMATE (test code=PLTEST) PLATELET MORPHOLOGY (test code=PLTMORPH) CBC W/MANUAL [id number] 13:56:00* Test Item Value Reference Range Comments WHITE BLOOD CELL (test code=WBC) 18.2 K/mm3 4.5-12.5 RED BLOOD CELL (test code=RBC) 3.63 mill/mm3 3.7-5.2 HEMOGLOBIN (test code=HGB) 12.0 gram/dL 11.5-15.5 HEMATOCRIT (test code=HCT) 36.5 % 36.0-46.0 MEAN CELL VOLUME (test code=MCV) 100.6 fL 80-98 MEAN CELL HGB (test code=MCH) 33.1 picogram 27.0-33.0 MEAN CELL HGB CONCETRATION (test code=MCHC) 32.9 gram/dL 33.0-36.0 RED CELL DISTRIBUTION WIDTH (test code=RDW) 13.3 % 11.6-16.2 RED CELL DISTRIBUTION WIDTH SD (test code=RDW-SD) 49.7 fL 37.0-51.0 PLATELET COUNT (test code=PLT) 311 K/mm3 150-450 RESULT VERIFIED BY REPEAT ANALYSIS MEAN PLATELET VOLUME (test code=MPV) 8.8 fL 6.7-11.0 IMMATURE GRANULOCYTE % (test code=IG%) 0.6 % 0.0-5.0 NUCLEATED RBC % (test code=NRBC%) 0.0 % 0-0 NEUTROPHIL # (test code=NT#) 15.12 K/mm3 1.8-7.7 IMMATURE GRANULOCYTE # (test code=IG#) 0.11 x10 3/uL 0-0.03 LYMPHOCYTE # (test code=LY#) 0.92 K/mm3 1.0-5.0 MONOCYTE # (test code=MO#) 1.97 K/mm3 0-0.8 EOSINOPHIL # (test code=EO#) 0.02 K/mm3 0.0-0.5 BASOPHIL # (test code=BA#) 0.05 K/mm3 0.0-0.2 NUCLEATED RBC # (test code=NRBC#) 0.00 K/mm3 0.0-0.1 MANUAL DIFF REQUIRED (test code=MDIFF) YES STAIN ACCEPTABILITY (test code=STN ACCEPTABLE) TOTAL CELLS COUNTED (test code=TCC) #CELLS SEGMENTED NEUTROPHILS (test code=SEG) % 39-69 LYMPHOCYTE (test code=LYMPH) % 25-55 MONOCYTE (test code=MON) % 0-10 MORPHOLOGY COMMENT (test code=MOC) PLATELET ESTIMATE (test code=PLTEST) PLATELET MORPHOLOGY (test code=PLTMORPH) CBC W/MANUAL [id number] 13:55:00* Test Item Value Reference Range Comments WHITE BLOOD CELL (test code=WBC) 18.2 K/mm3 4.5-12.5 RED BLOOD CELL (test code=RBC) 3.63 mill/mm3 3.7-5.2 HEMOGLOBIN (test code=HGB) 12.0 gram/dL 11.5-15.5 HEMATOCRIT (test code=HCT) 36.5 % 36.0-46.0 MEAN CELL VOLUME (test code=MCV) 100.6 fL 80-98 MEAN CELL HGB (test code=MCH) 33.1 picogram 27.0-33.0 MEAN CELL HGB CONCETRATION (test code=MCHC) 32.9 gram/dL 33.0-36.0 RED CELL DISTRIBUTION WIDTH (test code=RDW) 13.3 % 11.6-16.2 RED CELL DISTRIBUTION WIDTH SD (test code=RDW-SD) 49.7 fL 37.0-51.0 PLATELET COUNT (test code=PLT) 311 K/mm3 150-450 RESULT VERIFIED BY REPEAT ANALYSIS MEAN PLATELET VOLUME (test code=MPV) 8.8 fL 6.7-11.0 IMMATURE GRANULOCYTE % (test code=IG%) 0.6 % 0.0-5.0 NUCLEATED RBC % (test code=NRBC%) 0.0 % 0-0 NEUTROPHIL # (test code=NT#) 15.12 K/mm3 1.8-7.7 IMMATURE GRANULOCYTE # (test code=IG#) 0.11 x10 3/uL 0-0.03 LYMPHOCYTE # (test code=LY#) 0.92 K/mm3 1.0-5.0 MONOCYTE # (test code=MO#) 1.97 K/mm3 0-0.8 EOSINOPHIL # (test code=EO#) 0.02 K/mm3 0.0-0.5 BASOPHIL # (test code=BA#) 0.05 K/mm3 0.0-0.2 NUCLEATED RBC # (test code=NRBC#) 0.00 K/mm3 0.0-0.1 MANUAL DIFF REQUIRED (test code=MDIFF) YES STAIN ACCEPTABILITY (test code=STN ACCEPTABLE) TOTAL CELLS COUNTED (test code=TCC) #CELLS SEGMENTED NEUTROPHILS (test code=SEG) % 39-69 LYMPHOCYTE (test code=LYMPH) % 25-55 MONOCYTE (test code=MON) % 0-10 EOSINOPHIL (test code=EOS) % 0.0-5.0 CABOT RINGS (test code=CAB) MORPHOLOGY COMMENT (test code=MOC) PLATELET ESTIMATE (test code=PLTEST) PLATELET MORPHOLOGY (test code=PLTMORPH) CBC W/MANUAL [id number] 13:55:00* Test Item Value Reference Range Comments WHITE BLOOD CELL (test code=WBC) 18.2 K/mm3 4.5-12.5 RED BLOOD CELL (test code=RBC) 3.63 mill/mm3 3.7-5.2 HEMOGLOBIN (test code=HGB) 12.0 gram/dL 11.5-15.5 HEMATOCRIT (test code=HCT) 36.5 % 36.0-46.0 MEAN CELL VOLUME (test code=MCV) 100.6 fL 80-98 MEAN CELL HGB (test code=MCH) 33.1 picogram 27.0-33.0 MEAN CELL HGB CONCETRATION (test code=MCHC) 32.9 gram/dL 33.0-36.0 RED CELL DISTRIBUTION WIDTH (test code=RDW) 13.3 % 11.6-16.2 RED CELL DISTRIBUTION WIDTH SD (test code=RDW-SD) 49.7 fL 37.0-51.0 PLATELET COUNT (test code=PLT) 311 K/mm3 150-450 RESULT VERIFIED BY REPEAT ANALYSIS MEAN PLATELET VOLUME (test code=MPV) 8.8 fL 6.7-11.0 IMMATURE GRANULOCYTE % (test code=IG%) 0.6 % 0.0-5.0 NUCLEATED RBC % (test code=NRBC%) 0.0 % 0-0 NEUTROPHIL # (test code=NT#) 15.12 K/mm3 1.8-7.7 IMMATURE GRANULOCYTE # (test code=IG#) 0.11 x10 3/uL 0-0.03 LYMPHOCYTE # (test code=LY#) 0.92 K/mm3 1.0-5.0 MONOCYTE # (test code=MO#) 1.97 K/mm3 0-0.8 EOSINOPHIL # (test code=EO#) 0.02 K/mm3 0.0-0.5 BASOPHIL # (test code=BA#) 0.05 K/mm3 0.0-0.2 NUCLEATED RBC # (test code=NRBC#) 0.00 K/mm3 0.0-0.1 MANUAL DIFF REQUIRED (test code=MDIFF) YES STAIN ACCEPTABILITY (test code=STN ACCEPTABLE) TOTAL CELLS COUNTED (test code=TCC) #CELLS SEGMENTED NEUTROPHILS (test code=SEG) % 39-69 LYMPHOCYTE (test code=LYMPH) % 25-55 MONOCYTE (test code=MON) % 0-10 EOSINOPHIL (test code=EOS) % 0.0-5.0 CABOT RINGS (test code=CAB) MORPHOLOGY COMMENT (test code=MOC) PLATELET ESTIMATE (test code=PLTEST) PLATELET MORPHOLOGY (test code=PLTMORPH) LACTIC [id number] 08:20:00* Test Item Value Reference Range Comments LACTIC ACID (test code=LACT) 1.2 mmol/L 0.4-1.9 B-TYPE NATRIURETIC [id number] 08:16:00* Test Item Value Reference Range Comments B-TYPE NATRIURETIC PEPTIDE (test code=BNP) 5.04 pgram/mL 0-100 - CT CHEST W/[id number] 08:08:00 Name: BLADIMIR FAROOQ [facility] : 1975 Age/S: 43 / F [address] [facility] Unit #: [id number] Loc: [place] [address] Phys: Lona Dockery MD Acct: [id number] Dis Date: Status: ADM IN PHONE #: [phone] Exam Date: 12/22/2018 0735 FAX #: [phone] Reason: LEFT LUNG CONSOLIDATION EXAMS: CPT CODE: [id number] CT CHEST W/CONTRAST [address]909 TECHNIQUE: - CT CHEST W/CONTRAST . This exam was performed using one or more of the following dose reduction techniques: Automated exposure control, adjustment of the mA and/ or kV according to patient size or use of iterative reconstruction technique. COMPARISON: Chest x-ray 12/22/2018 HISTORY: 43 years Female LEFT LUNG CONSOLIDATION FINDINGS: Moderate to large left effusion and associated compressive left mid and left lower lung field segments. Opacified bronchi in the compressed segments. The left effusion may have a loculated appearance. Patchy densities left upper lobe. No pneumothorax. Thoracic aorta is normal for age. No bony erosive change. IMPRESSION: Moderate to large left effusion and associated compressive left mid and left lower lung field segments. Opacified bronchi in the compressed segments. The left effusion may have a loculated appearance. Patchy densities left upper lobe. at 0808 Reported and signed by: Federico Mcclure M.D. CC: Lona Dockery MD Technologist:Vicente Khalil RT(R),(MR),(CT); CTDI: DLP: Trnscb Date/Time: 12/22/2018 (0808) [email or web address] Orig Print D/T: S: 12/22/2018 (0853) PAGE 1 Signed Report PROCALCITONIN (PCT)2018-12-22 07:43:00* Test Item Value Reference Range Comments PROCALCITONIN (PCT) (test code=PROCAL) < 0.05 ng/ml Concentration Interpretation (ng/mL) <0.51 Sepsis is not likely. Local bacterial infection is possible. (LOW RISK for progression to Sepsis) 0.51 - 2.00 Sepsis is possible, but other conditions are known to elevate PCT as well. (MODERATE RISK for progression to Sepsis) > 2.00 Sepsis is likely, unless other causes are known. (HIGH RISK for progression to Severe Sepsis or Septic Shock) 10.00 High likelihood of Severe Sepsis or Septic or higher Shock. *Increased PCT levels may not always be related to systemic bacterial infection.*Low PCT levels do not automatically exclude the presence of bacterial infection.*All results should be interpreted taking into account the patients history. BASIC METABOLIC [id number] 07:22:00* Test Item Value Reference Range Comments SODIUM (test code=NA) 137 mmol/L 136-145 POTASSIUM (test code=K) 3.8 mmol/L 3.5-5.1 CHLORIDE (test code=CL) 101.0 mmol/L 98-107 CARBON DIOXIDE (test code=CO2) 25.0 mmol/L 21-32 ANION GAP (test code=GAP) 14.8 10-20 GLUCOSE (test code=GLU) 102 mg/dL 74-106 BLOOD UREA NITROGEN (test code=BUN) 7 mg/dL 7-18 GLOMERULAR FILTRATION RATE (test code=GFR) > 60 mL/min >=60 Estimated GFR by using Modified MDRD formula.Chronic kidney disease is defined as either kidney damageor GFR <60 mL/min/1.73 m2 for >3 months. CREATININE (test code=CREAT) 0.40 mg/dL 0.55-1.02 Note change in reference range due to change in reagent. BUN/CREATININE RATIO (test code=BUN/CREA) 17.5 10-20 CALCIUM (test code=CA) 8.7 mg/dL 8.5-10.1 [id number] 07:22:00* Test Item Value Reference Range Comments TROPONIN-I (test code=TROPI) <0.015 ng/mL 0-0.045 BASIC METABOLIC [id number] 07:03:00* Test Item Value Reference Range Comments SODIUM (test code=NA) 137 mmol/L 136-145 POTASSIUM (test code=K) 3.8 mmol/L 3.5-5.1 CHLORIDE (test code=CL) 101.0 mmol/L 98-107 CARBON DIOXIDE (test code=CO2) mmol/L 21-32 ANION GAP (test code=GAP) 10-20 GLUCOSE (test code=GLU) mg/dL 74-106 BLOOD UREA NITROGEN (test code=BUN) mg/dL 7-18 GLOMERULAR FILTRATION RATE (test code=GFR) mL/min >=60 CREATININE (test code=CREAT) mg/dL 0.55-1.02 BUN/CREATININE RATIO (test code=BUN/CREA) 10-20 CALCIUM (test code=CA) mg/dL 8.5-10.1 [id number] 07:03:00* Test Item Value Reference Range Comments TROPONIN-I (test code=TROPI) ng/mL 0-0.045 CBC W/O [id number] 06:44:00* Test Item Value Reference Range Comments WHITE BLOOD CELL (test code=WBC) 19.8 K/mm3 4.5-12.5 RED BLOOD CELL (test code=RBC) 4.17 mill/mm3 3.7-5.2 HEMOGLOBIN (test code=HGB) 13.7 gram/dL 11.5-15.5 HEMATOCRIT (test code=HCT) 41.9 % 36.0-46.0 MEAN CELL VOLUME (test code=MCV) 100.5 fL 80-98 MEAN CELL HGB (test code=MCH) 32.9 picogram 27.0-33.0 MEAN CELL HGB CONCETRATION (test code=MCHC) 32.7 gram/dL 33.0-36.0 RED CELL DISTRIBUTION WIDTH (test code=RDW) 13.2 % 11.6-16.2 PLATELET COUNT (test code=PLT) 362 K/mm3 150-450 MEAN PLATELET VOLUME (test code=MPV) 8.5 fL 6.7-11.0 POC LACTIC [id number] 06:31:00* Test Item Value Reference Range Comments POC LACTIC ACID (test code=POCLAC) 1.49 MMOL/L 0.4-2.2 - XR CHEST 1 [id number] 06:29:00 FAX: Lona Suazo [phone] Thomas: St: PRE Name: BLADIMIR DYE [facility] : [birth year] Age/S: 43/F [address] [facility] Unit #: [id number] Loc: [place] [address] Phys: Lona Dockery MD Acct: [id number] Dis Date: Status: PRE ER PHONE #: [phone] Exam Date: 12/22/2018616 FAX #: [phone] Reason: Shortness of Breath EXAMS: CPT CODE: [id number] XR CHEST 1 V 61009 - XR CHEST 1 V, 12/22/2018 6:10 AM Reason For Examination: Shortness of Breath Comparison: None available Location: R16 Findings Nonspecific dense opacity seen within the left lower lung zone may reflect a left lower lobe consolidation, partial eventration of left hemidiaphragm or a large left lung lesion, recommend further evaluation with CT. Mild vascular congestion is also seen CARDIOMED IASTINAL SILHOUETTE Unremarkable IMPRESSION: Nonspecific dense opacity seen within the left lower lung zone may reflect a left lower lobe consolidation, partial eventration of left hem idiaphragm or a large left lung lesion, recommend further evaluation wit h CT. at 0629 * * Reported and signed by: Luciana Crowell M.D. CC: Lona Dockery MD Technologist: SHAKIRA SALTER JR Trnscrd Date/Time/By: 12/23/19 19 (0629) : By: [email or web address] Orig Print D/T: S: 12/22/2018 (0656) PAGE [address] Angio [id number] 17:27:46Patient: BLADIMIR FAROOQ Date/Time12/20/2018 16:45 CDTReason for Examchest pain, SOB- r/o PE;Pulmonary embolism (PE)ReportEXAMINATION: CT Angio Chest.LOCATION: R16.HISTORY: Pulmonary embolism (PE);chest pain, SOB- r/o PE.COMPARISON: None.TECHNIQUE: CTA of the chest is performed after intravenous administration of 100 cc of Omnipaque-350 using pulmonary embolism protocol. MIP images are obtained.FINDINGS: Partially visualized thyroid gland appears unremarkable.VASCULATURE: There is normal enhancement of the main, lobar and segmental pulmonary arteries. There are no filling defects to suggest a pulmonary embolism.LYMPH NODES: No axillary, mediastinal or hilar bulky lymphadenopathy is identified.MEDIASTINUM: No mediastinal mass is noted. No aneurysmal dilatation of the thoracic aorta is seen.PLEURA/PERICARDIUM: No pericardial or right pleural effusion is seen. Small left pleural effusion.LUNGS /AIRWAYS: Trachea and central bronchi are patent. No pneumothorax. Biapical thic kening/scarring. Left lower lobe atelectasis/consolidation.OSSEOUS STRUCTURES: V isualized osseous structures demonstrates moderate degenerative changes of thora cic spine.UPPER ABDOMEN: Visualized portion of the upper abdominal viscera demon strates contrast within bilateral renal pelvis.IMPRESSION:No CTA evidence to sug gest a pulmonary embolism.Small left pleural effusion with left lower lobe atele ctasis/consolidation, superimposed infectious process should be excluded clinica lly. Recommend follow-up after medical therapy to document clearing. Final Dictated by: MD Morales Ankitkumar NDictated DT/TM: 12/20/2018 5:20 pmSig mak by: MD Morales Ankitkumar NSigned (Electronic Signature): 12/20/2018 5:27 p mUrinalysis [id number] 16:40:13* Test Item Value Reference Range Comments UA WBC (test code=UA WBC) 0-5 0-5 UA RBC (test code=UA RBC) TNTC 0-5 UA Bacteria (test code=UA Bacteria) Many UA Squam Epithelial (test code=UA Squam Epithelial) 30-50 Drugs of Abuse Urine [id number] 16:32:34* Test Item Value Reference Range Comments Amphetamine Screen Ur (test code=Amphetamine Screen Ur) Negative Negative For diagnostic purposes only. Positive results should always be assessed in conjunction with a patient's medical history. Barbiturate Screen Ur (test code=Barbiturate Screen Ur) Negative Negative Benzodiazepines Ur (test code=Benzodiazepines Ur) Negative Negative Cocaine Screen Ur (test code=Cocaine Screen Ur) Negative Negative U Methadone (test code=U Methadone) Negative Negative Opiate Screen Ur (test code=Opiate Screen Ur) Negative Negative U PCP Scrn (test code=U PCP Scrn) Negative Negative U Propoxyphene (test code=U Propoxyphene) Negative Negative Cannabinoid Screen Ur (test code=Cannabinoid Screen Ur) Negative Negative XR Chest 1 View [id number] 16:24:02Patient: BLADIMIR FAROOQ Date/Time12/20/2018 16:03 CDTReason for ExamChest painReportEXAMINATION: XR Chest 1 View Frontal.LOCATION: R16.HISTORY: Chest pain.COMPARISON: None.FINDINGS:Examination is limited due to portable technique.Cardiac silhouette/Mediastinal contour: Within normal limits.Lungs: Left-sided pleural effusion with underlying atelectasis/consolidation.Osseous Structures: No acute osseous abnormalities.I MPRESSION:Left-sided pleural effusion with underlying atelectasis/consolidation, superimposed infectious process should be excluded clinically. Recommend follow- up after medical therapy to document clearing. Final Dictated by: MD Morales Ankitkumar NDictated DT/TM: 12/20/2018 4:22 pmSigned by: MD Morales An kitkumar NSigned (Electronic Signature): 12/20/2018 4:24 pmUrinalysis with Microscopic if [id number] 16:23:34* Test Item Value Reference Range Comments UA Color (test code=UA Color) STRAW Yellow UA Appear (test code=UA Appear) CLEAR Clear UA pH (test code=UA pH) 7 UA Spec Grav (test code=UA Spec Grav) 1.009 1.001-1.035 UA Glucose (test code=UA Glucose) NEG Negative UA Ketones (test code=UA Ketones) NEG Negative UA Blood (test code=UA Blood) 250 cells/mcL Negative UA Protein (test code=UA Protein) NEG Negative UA Bili (test code=UA Bili) NEG Negative UA Urobilinogen (test code=UA Urobilinogen) 0.2 mg/dL UA Nitrite (test code=UA Nitrite) NEG Negative UA Leuk Est (test code=UA Leuk Est) 25 cells/mcL Negative UA Micro Ind? (test code=UA Micro Ind?) Indicated Not Indicated Result created by rule GL_SJM_UA_MICRO_IND D-Dimer [id number] 16:16:37* Test Item Value Reference Range Comments D Dimer, (Quant.) (test code=D Dimer, (Quant.)) 1897 ng/mL 0-500 Comprehensive Metabolic [id number] 16:08:27* Test Item Value Reference Range Comments Sodium Level (test code=Sodium Level) 139.0 mmol/L 135.0-145.0 Potassium Level (test code=Potassium Level) 3.6 mmol/L 3.5-5.1 Chloride Level (test code=Chloride Level) 101 mmol/L 98-105 CO2 (test code=CO2) 26 mmol/L 22-29 Anion Gap (test code=Anion Gap) 12 mmol/L 7-16 BUN (test code=BUN) 6.70 mg/dL 6.00-20.00 Creatinine Level (test code=Creatinine Level) 0.40 mg/dL 0.50-0.90 BUN/Creat Ratio (test code=BUN/Creat Ratio) 17 Glucose Level (test code=Glucose Level) 84 mg/dL 70-115 Calcium Level (test code=Calcium Level) 8.4 mg/dL 8.3-10.5 Alk Phos (test code=Alk Phos) 68 U/L 35-104 Bilirubin Total (test code=Bilirubin Total) <0.1 mg/dL 0.1-0.9 Albumin Level (test code=Albumin Level) 3.1 g/dL 3.5-5.2 Protein Total (test code=Protein Total) 5.4 g/dL 6.4-8.3 ALT (test code=ALT) 7 U/L 1-33 AST (test code=AST) 8 U/L 1-32 Globulin (test code=Globulin) 2.3 g/dL 2.9-3.1 A/G Ratio (test code=A/G Ratio) 1.3 ratio Comprehensive Metabolic [id number] 16:08:27* Test Item Value Reference Range Comments Sodium Level (test code=Sodium Level) 139.0 mmol/L 135.0-145.0 Potassium Level (test code=Potassium Level) 3.6 mmol/L 3.5-5.1 Chloride Level (test code=Chloride Level) 101 mmol/L 98-105 CO2 (test code=CO2) 26 mmol/L 22-29 Anion Gap (test code=Anion Gap) 12 mmol/L 7-16 BUN (test code=BUN) 6.70 mg/dL 6.00-20.00 Creatinine Level (test code=Creatinine Level) 0.40 mg/dL 0.50-0.90 BUN/Creat Ratio (test code=BUN/Creat Ratio) 17 Glucose Level (test code=Glucose Level) 84 mg/dL 70-115 Calcium Level (test code=Calcium Level) 8.4 mg/dL 8.3-10.5 Alk Phos (test code=Alk Phos) 68 U/L 35-104 Bilirubin Total (test code=Bilirubin Total) <0.1 mg/dL 0.1-0.9 Albumin Level (test code=Albumin Level) 3.1 g/dL 3.5-5.2 Protein Total (test code=Protein Total) 5.4 g/dL 6.4-8.3 ALT (test code=ALT) 7 U/L 1-33 AST (test code=AST) 8 U/L 1-32 Globulin (test code=Globulin) 2.3 g/dL 2.9-3.1 A/G Ratio (test code=A/G Ratio) 1.3 ratio eGFR AA (test code=eGFR AA) >60 mL/min/1.73 m2 eGFR (estimated Glomerular Filtration Rate) is an estimated value, calculated from the patient's serum creatinine using the MDRD equation. It is NOT the patient's actual GFR. The eGFR provides a more clinically useful measure of kidney disease than serum creatinine alone.This calculation takes sex and race into account, if the information is provided. If the race is not provided, and the patient is -[place], multiply by 1.212. If sex is not provided, and the patient is female, multiply by 0.742. Results for patients <18 years of age have not been validated by the MDRD study and should be interpreted with caution. eGFR Result Interpretation:eGFR > or=60 is in the Normal RangeeGFR < 60 may mean kidney diseaseeGFR < 15 may mean kidney failure Ranges recommended by the National Kidney Foundation, http://nkdep.nih.gov Comprehensive Metabolic [id number] 16:08:27* Test Item Value Reference Range Comments Sodium Level (test code=Sodium Level) 139.0 mmol/L 135.0-145.0 Potassium Level (test code=Potassium Level) 3.6 mmol/L 3.5-5.1 Chloride Level (test code=Chloride Level) 101 mmol/L 98-105 CO2 (test code=CO2) 26 mmol/L 22-29 Anion Gap (test code=Anion Gap) 12 mmol/L 7-16 BUN (test code=BUN) 6.70 mg/dL 6.00-20.00 Creatinine Level (test code=Creatinine Level) 0.40 mg/dL 0.50-0.90 BUN/Creat Ratio (test code=BUN/Creat Ratio) 17 Glucose Level (test code=Glucose Level) 84 mg/dL 70-115 Calcium Level (test code=Calcium Level) 8.4 mg/dL 8.3-10.5 Alk Phos (test code=Alk Phos) 68 U/L 35-104 Bilirubin Total (test code=Bilirubin Total) <0.1 mg/dL 0.1-0.9 Albumin Level (test code=Albumin Level) 3.1 g/dL 3.5-5.2 Protein Total (test code=Protein Total) 5.4 g/dL 6.4-8.3 ALT (test code=ALT) 7 U/L 1-33 AST (test code=AST) 8 U/L 1-32 Globulin (test code=Globulin) 2.3 g/dL 2.9-3.1 A/G Ratio (test code=A/G Ratio) 1.3 ratio eGFR AA (test code=eGFR AA) >60 mL/min/1.73 m2 eGFR (estimated Glomerular Filtration Rate) is an estimated value, calculated from the patient's serum creatinine using the MDRD equation. It is NOT the patient's actual GFR. The eGFR provides a more clinically useful measure of kidney disease than serum creatinine alone.This calculation takes sex and race into account, if the information is provided. If the race is not provided, and the patient is -[place], multiply by 1.212. If sex is not provided, and the patient is female, multiply by 0.742. Results for patients <18 years of age have not been validated by the MDRD study and should be interpreted with caution. eGFR Result Interpretation:eGFR > or=60 is in the Normal RangeeGFR < 60 may mean kidney diseaseeGFR < 15 may mean kidney failure Ranges recommended by the National Kidney Foundation, http://nkdep.nih.gov eGFR Non-AA (test code=eGFR Non-AA) >60.00 mL/min/1.73 m2 eGFR (estimated Glomerular Filtration Rate) is an estimated value, calculated from the patient's serum creatinine using the MDRD equation. It is NOT the patient's actual GFR. The eGFR provides a more clinically useful measure of kidney disease than serum creatinine alone.This calculation takes sex and race into account, if the information is provided. If the race is not provided, and the patient is -[place], multiply by 1.212. If sex is not provided, and the patient is female, multiply by 0.742. Results for patients <18 years of age have not been validated by the MDRD study and should be interpreted with caution. eGFR Result Interpretation:eGFR > or=60 is in the Normal RangeeGFR < 60 may mean kidney diseaseeGFR < 15 may mean kidney failure Ranges recommended by the National Kidney Foundation, http://nkdep.nih.gov Pro B Natriuretic [id number] 16:05:38* Test Item Value Reference Range Comments NT-proBNP (test code=NT-proBNP) 32 pg/mL 0-124 Troponin [id number] 16:05:38* Test Item Value Reference Range Comments Troponin-T (test code=Troponin-T) <0.010 ng/mL 0.000-0.009 Within Normal Range.The 99th percentile URL for the assay is< 0.01ng/ml. A rise and fall in JANNY with at least one value above the 99th percentile with clinical evidence of myocardial ischemia would support the diagnosis of AMI. A delta of at least 20% is recommended to access acute changes in results above the 99th percentile in serial measurements. Stable JANNY levels (<20% delta) above the 99th percentile URL would support a diagnosis of chronic myocardial injury.<0.01 ng/ml - No evidence of Myocardial Injury > or equal to 0.01 ng/ml - Suspected Myocardial Injury Complete Blood Count with [id number] 15:51:21* Test Item Value Reference Range Comments WBC (test code=WBC) 9.3 x10 4.4-10.5 RBC (test code=RBC) 3.59 x10 3.75-5.20 Hgb (test code=Hgb) 12.2 g/dL 12.2-14.8 MCV (test code=MCV) 100.60 fL 80.00-100.00 Hct (test code=Hct) 36.1 % 36.5-44.4 MCHC (test code=MCHC) 33.80 g/dL 32.00-37.50 RDW CV (test code=RDW CV) 13.7 % 11.5-14.5 MCH (test code=MCH) 34.0 pg 27.0-32.5 Platelets (test code=Platelets) 305.0 x10 140.0-440.0 MPV (test code=MPV) 8.5 fL Slide Review (test code=Slide Review) Auto Auto Result created by GL_SJM_SLIDE_REV_AUTO nRBC (test code=nRBC) 0 NRBC Abs (test code=NRBC Abs) 0.00 x10 IPF (test code=IPF) 0 % Automated [id number] 15:51:21* Test Item Value Reference Range Comments Neutro Auto (test code=Neutro Auto) 68.6 % 36.0-70.0 Lymph Auto (test code=Lymph Auto) 16.2 % 12.0-44.0 Lamb Auto (test code=Lamb Auto) 11.0 % 0.0-11.0 Eos, Auto (test code=Eos, Auto) 3.3 % 0.0-7.0 Basophil Auto (test code=Basophil Auto) 0.4 % 0.0-2.0 Neutro Absolute (test code=Neutro Absolute) 6.4 x10 1.6-7.4 Lymph Absolute (test code=Lymph Absolute) 1.50 x10 .50-4.60 Lamb Absolute (test code=Lamb Absolute) 1.02 x10 .00-1.20 Eos Absolute (test code=Eos Absolute) 0.31 x10 0.00-0.74 Baso Absolute (test code=Baso Absolute) 0.04 x10 0.00-0.21 IG [id number] 15:51:21* Test Item Value Reference Range Comments IG (test code=IG) 0.5 % 0.0-5.0 IG Abs (test code=IG Abs) 0 x10 CHEST 2 VIEWS [place] [address] Patient Name: BLADIMIR FAROOQ MR #: [id number] : 1975 Age/Sex: 42/F Req #: [id number] Adm Physician: Ordered by: EMMANUEL MAYA MD Report #: [id number] Location: ER Room/Bed: Procedure: [id number] DX/CHEST 2 VIEWS Exam Date: Exam Time: 0200 REPORT STATUS: Signed EXAM: CHEST 2 VIEWS, PA and lateral DATE: 07/23/2017 1:32 AM Time stamp on e xam: 0142 hours INDICATION: Chest pain, shortness of breath, cough COMPARISO N: None FINDINGS: LINES/TUBES: None LUNGS: No consolidations or natalio a. PLEURA: No effusions or pneumothorax. HEART AND MEDIASTINUM: Katherin l size and contour. BONES AND SOFT TISSUES: No acute findings. IMPRES VALENTIN: No acute thoracic abnormality. Signed by: Dr. Sunni oleary M.D. on 07/23/2017 2:30 AM Dictated By: SUNNI GALAVIZ MD Electronica ll Signed By: SUNNI GALAVIZ MD on 07/23/17229 Transcribed By: MSIAEL on 229 COPY TO: EMMANUEL MAYA MD
[2019-02-24 21:02] LABS: BASOPHILS # (AUTO) 0.1 (0.0-0.1); BASOPHILS % 0.7 % (0.0-1.0); EOSINOPHILS # (AUTO) 0.2 (0.0-0.4); EOSINOPHILS % 2.6 % (0.0-6.0); HEMATOCRIT 41.8 % (34.2-44.1); HEMOGLOBIN 14.1 g/dL (12.0-16.0); LYMPHOCYTES # (AUTO) 2.9 (1.0-3.2); LYMPHOCYTES % 42.7 % (18.0-39.1); MEAN CORPUSCULAR HEMOGLOBIN 32.6 pg (28-32); MEAN CORPUSCULAR HGB CONC 33.7 g/dL (31-35); MEAN CORPUSCULAR VOLUME 96.8 fL (81-99); MONOCYTES # (AUTO) 0.7 (0.2-0.8); MONOCYTES % 10.2 % (4.4-11.3); NEUTROPHILS % 43.7 % (38.7-80.0); PLATELET COUNT 218 x10e3/uL (140-360); RED BLOOD COUNT 4.32 x10e6/uL (3.6-5.1); RED CELL DISTRIBUTION WIDTH 13.9 % (11.7-14.4)
[2019-02-24 21:10] LABS: BILIRUBIN,URINE NEGATIVE (NEGATIVE); CLARITY,URINE CLEAR (CLEAR); COLOR,URINE COLORLESS (YELLOW); KETONES,URINE NEGATIVE (NEGATIVE); LEUKOCYTE ESTERASE ,URINE NEGATIVE (NEGATIVE); NITRITE,URINE NEGATIVE (NEGATIVE); PROTEIN,URINE DIPSTICK NEGATIVE (NEGATIVE); URINE UROBILINOGEN 0.2 mg/dL (0.2 - 1)
[2019-02-24 21:12] LABS: AMPHETAMINES SCREEN,URINE NEGATIVE (NEGATIVE); BENZODIAZEPINES SCREEN,URINE NEGATIVE (NEGATIVE); PHENCYCLIDINE SCREEN,URINE NEGATIVE (NEGATIVE)
[2019-02-24 21:21] LABS: BACTERIA,URINE MODERATE /HPF; EPITHELIAL CELLS,URINE FEW /LPF
[2019-02-24 21:25] LABS: ALANINE AMINOTRANSFERASE 13 IU/L (0-55); ALBUMIN 4.3 g/dL (3.5-5.0); ALBUMIN/GLOBULIN RATIO 1.4 (0.8-2.0); ALKALINE PHOSPHATASE 54 IU/L (40-150); ANION GAP 14.4 mmol/L (8-16); BLOOD UREA NITROGEN 6 mg/dL (7-26); BUN/CREATININE RATIO 8 (6-25); CALCIUM 9.9 mg/dL (8.4-10.2); CARBON DIOXIDE 24 mmol/L (22-29); CHLORIDE 104 mmol/L (98-107); CREATINE KINASE 63 IU/L (29-168); CREATININE, SERUM 0.71 mg/dL (0.57-1.11); EST GLOMERULAR FILTRATION RATE > 60 ML/MIN (60-); GLUCOSE 90 mg/dL (74-118); POTASSIUM 3.4 mmol/L (3.5-5.1); SODIUM 139 mmol/L (136-145)
--- NOTE | 2019-02-24 21:45 | Diagnostic Imaging Report ---
EXAMINATION: CHEST 2 VIEWS INDICATION: ^LUQ PAIN COMPARISON: 07/23/2017 FINDINGS: PA and lateral views TUBES and LINES: None. LUNGS and pleura: Lungs are well inflated. Trace left pleural effusion. There is also mild left basilar opacification, which could represent scarring or atelectasis. HEART AND MEDIASTINUM: The cardiomediastinal silhouette is unremarkable. BONES AND SOFT TISSUES: No acute osseous lesion. Soft tissues are unremarkable. UPPER ABDOMEN: No free air under the diaphragm. IMPRESSION: Trace left pleural effusion with adjacent atelectasis/scarring. Underlying/developing pneumonia cannot be excluded in the appropriate clinical context.. Signed by: Dr. Tunde Baires MD on 02/24/2019 9:41 PM
--- NOTE | 2019-02-24 22:00 | Diagnostic Imaging Report ---
EXAM: Abdomen 4 radiographs INDICATION: ^ABDOMINAL PAIN ^[id number] ^2138 ^Y COMPARISON: Same day chest x-ray FINDINGS: Nonobstructive bowel gas pattern. No signs of pneumoperitoneum. No calcification overlying renal shadows. Pelvic phleboliths. No acute osseous abnormality. Trace left pleural effusion. IMPRESSION: 1. Nonobstructive bowel gas pattern. Signed by: Dr. Tunde Baires MD on 02/24/2019 9:57 PM
== END 2019-02-24 22:25 | disposition home or self-care (01) ==
LOC: ER 20:32
DX: J90 Pleural effusion, not elsewhere classified (principal); R07.81 Pleurodynia
CPT/HCPCS: 36415; 71046; 74019; 80053; 80307; 81001; 81025; 82550; 82553; 84484; 85025; 85379; 93005; 99284